=== PATIENT | female | born 1930 | race Caucasian/White ===

== ENCOUNTER 2016-10-04 13:07 | Inpatient (IN) | payer OTHER, BC ==
--- NOTE | 2016-10-04 13:07 | EDPHY ---
H & P Constitutional: Initial Vital Signs Temperature (C) 36.3 C 10/04/16 13:23 Heart Rate 72 10/04/16 13:23 Respiratory Rate 18 10/04/16 13:23 Blood Pressure 130/86 H 10/04/16 13:23 O2 Sat (%) 93 10/04/16 13:23 O2 Delivery Mode Room Air Allergies/Adverse Reactions: Sulfa (Sulfonamide Antibiotics) Allergy (Severe, Verified 10/04/16 13:23) Rash morphine Allergy (Mild, Verified 10/04/16 13:23) NAUSEA Home Medications: Medication Instructions Recorded Alendronate Sodium [Fosamax 70 MG 70 mg PO WE@0700 02/26/15 (*)] Aspirin EC [Aspirin EC 81 mg (*)] 81 mg PO DAILY 02/26/15 Cholecalciferol Vit D3 [Vitamin D3 1,000 units PO Q2D 02/26/15 (*)] Cholecalciferol Vit D3 [Vitamin D3 2,000 units PO Q2D 02/26/15 2000 units] FLUoxetine [Prozac 20 MG (*)] 40 mg PO DAILY 02/26/15 Folic Acid [Folic Acid 1 MG (*)] 1 mg PO DAILY 02/26/15 Herbals/Supplements -Info Only 1 ea PO DAILY 02/26/15 Lisinopril [Zestril 30 mg] 45 mg PO DAILY 02/26/15 Methotrexate Sodium [Rheumatrex] 15 mg PO WE@09 02/26/15 Metoprolol Tartrate [Lopressor 50 50 mg PO DAILY 02/26/15 mg (*)] [place]-3 Fatty Acids [Fish Oil 1000 2,000 mg PO DAILY 02/26/15 mg (*)] Ranitidine HCl [Zantac] 150 mg PO DAILY 02/26/15 amLODIPine BESYLATE [Norvasc 5 mg 5 mg PO DAILY 02/26/15 (*)] Aspirin/Dipyridamole 25/200 1 cap PO BID #60 cap 02/27/15 [Aggrenox] Atorvastatin Calcium [Lipitor 10 10 mg PO DAILY #30 tab 02/27/15 mg (*)] Hydrocodone/Acetaminophen [[place] 1 each PO Q4 PRN #10 tablet 02/27/15 5/325 (*)] Medical Decision Making ED Course/Re-evaluation: CHIEF COMPLAINT: Bilateral leg weakness HISTORY OF PRESENT ILLNESS: This patient is an 86 year old female arriving by EMS who presents to the Emergency Department with an acute exacerbation of chronic bilateral leg weakness presenting around 1200 today when the patient attempted to ambulate out of the shower. On Monday, four days prior to arrival , she experienced an episode of acute lethargy and weakness with reported left- sided listing which has since resolved. She felt normal when she awoke this morning and was able to ambulate appropriately prior to the episode. She was sick 3-4 weeks ago but denies any current fever, chills, aches, or urinary complaints. She denies headache, visual changes, or other neurological deficits. Medical history includes cardiac pacemaker. No anticoagulant use. REVIEW OF SYSTEMS: A 10 point review of systems was performed and is negative with the exception of the elements mentioned in the history of present illness. PHYSICAL EXAM: HR, BP, O2 Sat, RR. Temp noted General Appearance: Alert, well hydrated, appropriate, and non-toxic appearing. Head: Atraumatic without scalp tenderness or obvious injury Eyes: Pupils equal, round, reactive to light and accommodation, EOMI, no trauma , no injection. Ears: Clear bilaterally, no perforation, normal landmarks Nose: Atraumatic, no rhinorrhea, clear. Throat: There is no erythema or exudates, no lesions, normal tonsils, mucus membranes moist. Neck: Supple, 2+ carotid upstroke, nontender, no lymphadenopathy. Respiratory: No retractions, no distress, no wheezes, and no accessory muscle use. Lungs are clear to auscultation bilaterally. Cardiovascular: Regular rate and rhythm, no murmurs, rubs, or gallops. Bilateral carotid, radial, dorsalis pedis, and posterior tibial pulses intact. Good capillary refill all extremities. Gastrointestinal: Abdomen is soft, nontender, non-distended, no masses, no rebound, no guarding, no peritoneal signs. Musculoskeletal: Normal active ROM of all extremities, atraumatic. Neurological: Alert, appropriate, and interactive. The patient has normal DTRs and non-focal cranial nerves, sensory, and cerebellar exam. No pronator drift. Symmetrical motor weakness bilaterally to both legs. Skin: No rashes, good turgor, no nodules on palpation. Past medical history: Cardiac pacemaker. No diabetes. Past surgical history: Non-contributory. Family history: Non-contributory. Social history: Non-smoker. DIAGNOSTICS/PROCEDURES/CRITICAL CARE TIME: IMAGING: Study: CT of the head without IV contrast Indication: Weakness Results: CT scan of the head was obtained. The results of the study are: non- acute. The study was read by the radiologist, Dr. Baldemar Barnes. I viewed the images myself on the PACS system. DIFFERENTIAL DIAGNOSIS: The differential diagnosis for the patient's weakness includes but is not limited to: Guillain-Franklin, spinal stenosis, CVA, UTI, or electrolyte abnormality. MEDICAL DECISION MAKING: This 86 year old female presents by EMS after she was unable to ambulate out of the shower at 1200 today. She had a recent episode of acute weakness on Monday that resolved on its own. She has a largely benign neurological exam with normal cranial nerve function and normal sensation throughout. She does present with bilateral motor weakness to both legs that is more suggestive of spinal stenosis or Guillian-Franklin than it is for stroke or TIA. It is unclear when she first experienced leg weakness but it is possible that today's episode is simply a progression of chronic weakness. Given the patient's cardiac pacemaker, we cannot proceed with MRI imagining at this time. Will proceed with CT of the head, UA, and labs to investigate potential UTI or electrolyte abnormalities. IV established. 1L IV NS administered. Labs are unremarkable; imaging is non-acute. It is unclear at this time the cause of the patient's progressive weakness. Given that she has difficulty ambulating, will plan for admission. 1442: Consultation with Dr. Gutierrez, hospitalist, who accepts admission to med/ surg. 1536: The patient's UA results are positive for UTI. She will be started on a dose of Ceftriaxone prior to admission to the hospital. - Data Points Laboratory Results: Laboratory Results 10/04/16 13:20 10/04/16 13:20 10/04/16 10/04/16 10/04/16 14:42 13:30 13:20 WBC 7.11 10^3/uL (3.80-9.50) RBC 3.88 L 10^6/uL (4.18-5.33) Hgb 13.1 g/dL (12.6-16.3) Hct 38.8 % (38.0-47.0) MCV 100.0 H fL (81.5-99.8) MCH 33.8 pg (27.9-34.1) MCHC 33.8 g/dL (32.4-36.7) RDW 13.7 % (11.5-15.2) Plt Count 210 10^3/uL (150-400) MPV 10.5 fL (8.7-11.7) Neut % (Auto) 80.5 H % (39.3-74.2) Lymph % (Auto) 9.4 L % (15.0-45.0) [place] % (Auto) 8.0 % (4.5-13.0) Eos % (Auto) 0.7 % (0.6-7.6) Baso % (Auto) 0.6 % (0.3-1.7) Nucleat RBC Rel Count 0.0 % (0.0-0.2) Absolute Neuts (auto) 5.72 10^3/uL (1.70-6.50) Absolute Lymphs (auto) 0.67 L 10^3/uL (1.00-3.00) Absolute Monos (auto) 0.57 10^3/uL (0.30-0.80) Absolute Eos (auto) 0.05 10^3/uL (0.03-0.40) Absolute Basos (auto) 0.04 10^3/uL (0.02-0.10) Absolute Nucleated RBC 0.00 10^3/uL (0-0.01) Immature Gran % 0.8 % (0.0-1.1) Immature Gran # 0.06 10^3/uL (0.00-0.10) PT 14.1 SEC (12.0-15.0) INR 1.10 (0.83-1.16) APTT 32.0 SEC (23.0-38.0) Sodium 142 mEq/L (134-144) Potassium 4.4 mEq/L (3.5-5.2) Chloride 108 mEq/L (97-110) Carbon Dioxide 22 mEq/l (22-31) Anion Gap 12 mEq/L (8-16) BUN 18 mg/dL (7-23) Creatinine 0.9 mg/dL (0.6-1.0) Estimated GFR 59 Glucose 150 H mg/dL (70-100) Hemoglobin A1c Pending Estim Average Glucose Pending Calcium 10.2 mg/dL (8.5-10.4) Total Bilirubin 0.7 mg/dL (0.1-1.4) Conjugated Bilirubin 0.3 mg/dL (0.0-0.5) Unconjugated Bilirubin 0.4 mg/dL (0.0-1.1) AST 30 IU/L (14-46) ALT 45 IU/L (9-52) Alkaline Phosphatase 68 IU/L (38-126) Total Protein 7.3 g/dL (6.3-8.2) Albumin 4.1 g/dL (3.5-5.0) Lipase 180.0 IU/L (23-300) Urine Color YELLOW Urine Appearance HAZY Urine pH 5.0 (5.0-7.5) Ur Specific [place] 1.018 (1.002-1.030) Urine Protein 1+ H (NEGATIVE) Urine Ketones NEGATIVE (NEGATIVE) Urine Blood NEGATIVE (NEGATIVE) Urine Nitrate NEGATIVE (NEGATIVE) Urine Bilirubin NEGATIVE (NEGATIVE) Urine Urobilinogen NEGATIVE EU (0.2-1.0) Ur Leukocyte Esterase 2+ H (NEGATIVE) Urine RBC 5-10 H /hpf (0-3) Urine WBC 10-15 H /hpf (0-3) Ur Epithelial Cells 1+ /lpf (NONE-1+) Hyaline Casts 1-5 /lpf (0-1) Urine Mucus 1+ /lpf (NONE-1+) Ur Culture Indicated? INDICATED H (NI) Urine Glucose NEGATIVE (NEGATIVE) Medications Given: Discontinued Medications Sodium Chloride (Ns) 1,000 mls @ 0 mls/hr IV ONCE ONE PRN Reason: Wide Open Stop: 10/04/16 13:16 Last Admin: 10/04/16 13:30 Dose: 1,000 mls Departure - Departure Disposition: [facility] Inpatient Acute Clinical Impression: Leg weakness, bilateral, inability to ambulate UTI (urinary tract infection) Qualifiers: Urinary tract infection type: site unspecified Hematuria presence: with hematuria Qualifier Code: (N39.0) Urinary tract infection, site not specified Condition: Fair Report Scribed for: Thompson Beltran Report Scribed by: Yasemin Martell Date of Report: 10/04/16 Time of Report: 13:17
[2016-10-04] MEDS ORDERED: NS 1,000 ML IV ONE (13:15)
[2016-10-04 13:28] LABS: % IMMATURE GRANULYOCYTES 0.8 % (0.0-1.1); ABSOLUTE IMMATURE GRANULOCYTES 0.06 10^3/uL (0.00-0.10); ADD DIFF? NO; ADD MORPH? NO; ADD SCAN? NO; ATYPICAL LYMPHOCYTE FLAG 10 (0-99); FRAGMENT RBC FLAG 0 (0-99); HEMATOCRIT 38.8 % (38.0-47.0); HEMOGLOBIN 13.1 g/dL (12.6-16.3); LEFT SHIFT FLG 0 (0-99); LIPEMIA HEMOLYSIS FLAG 90 (0-99); MEAN CELL HEMOGLOBIN 33.8 pg (27.9-34.1); MEAN CELL HEMOGLOBIN CONCENTR. 33.8 g/dL (32.4-36.7); MEAN PLATELET VOLUME 10.5 fL (8.7-11.7); PLATELET CLUMPS FLAG 0 (0-99); PLATELET COUNT 210 10^3/uL (150-400); RED BLOOD CELL COUNT 3.88 10^6/uL (4.18-5.33); RED CELL DISTRIBUTION WIDTH 13.7 % (11.5-15.2)
[2016-10-04 13:36] LABS: INR 1.1 (0.83-1.16); PROTIME(PATIENT) 14.1 SEC (12.0-15.0)
[2016-10-04 13:52] LABS: ALANINE AMINOTRANSFERASE 45 IU/L (9-52); ALBUMIN 4.1 g/dL (3.5-5.0); ALKALINE PHOSPHATASE 68 IU/L (38-126); ANION GAP 12 mEq/L (8-16); ASPARTATE AMINOTRANSFERASE 30 IU/L (14-46); BILIRUBIN,TOTAL 0.7 mg/dL (0.1-1.4); BILIRUBIN-CONJUGATED 0.3 mg/dL (0.0-0.5); BILIRUBIN-UNCONJUGATED 0.4 mg/dL (0.0-1.1); CALCIUM 10.2 mg/dL (8.5-10.4); CARBON DIOXIDE 22 mEq/l (22-31); CHLORIDE 108 mEq/L (97-110); CREATININE 0.9 mg/dL (0.6-1.0); GLOMERULAR FILTRATION RATE 59; GLUCOSE 150 mg/dL (70-100); POTASSIUM 4.4 mEq/L (3.5-5.2); SODIUM 142 mEq/L (134-144); TOTAL PROTEIN 7.3 g/dL (6.3-8.2)
--- NOTE | 2016-10-04 14:12 | CT ---
CT Head Without Contrast History: Weakness, difficulty walking, possible TIA in the past comparison February 26, 2015 Technique: Noncontrast images through the head. Soft tissue and bone window evaluation is performed. Dose reduction techniques were utilized. Findings: There is chronic dense atherosclerotic calcification of the distal right vertebral artery a nd of both distal internal carotid arteries.. An old right central cerebellar infarct is represented with focal encephalomalacia. There is stable severe supra and infratentorial cerebral atrophy. Extens deshaun confluent supratentorial white matter hypodensity is consistent with leukomalacia, potentially re lated to systemic chemotherapy for an oncologic process or severe hypertension. There is no evidence for hemorrhage, mass lesion, acute infarction, intracranial edema, hydrocephalu s or abnormal intracranial parenchymal calcification. No subarachnoid or subdural blood is identified . There is no midline shift. The ambient cistern is patent. Bone window evaluation reveals normally a erated paranasal and mastoid sinuses and both middle ears. There is no evidence of pneumocephalus. Impression: Stable since January 2015 might the patient symptoms be related to posterior fossa ischemia related to vertebral artery atherosclerotic disease? Results called and discussed with Thompson Beltran MD, MD at 10/04/2016 14:08 General information for patients regarding this examination can be found at [email or web address]. If you have questions or comments about this report, please contact me at [phone] (hospital) or [phone] (cell).
[2016-10-04 14:51] LABS: COLOR YELLOW; LEUKOCYTE ESTERASE,URINE 2+ (NEGATIVE); NITRITE,URINE NEGATIVE (NEGATIVE)
[2016-10-04 14:59] LABS: MUCUS 1+ /lpf (NONE-1+)
[2016-10-04] MEDS ORDERED: IBUPROFEN 200 MG TAB PO PRN (15:22)
[2016-10-04] MEDS ORDERED: ONDANSETRON 4 MG/2 ML VIAL IVP PRN (15:22)
[2016-10-04] MEDS ORDERED: NS 1,000 ML IV SCH (15:30)
--- NOTE | 2016-10-04 15:31 | PDGENHP ---
History and Physical - Chief Complaint Acute Paresis - History of Present Illness PCP: Dr. Ware Rheum: Dr. Stokes HPI: 86-year-old female presenting with acute paresis located in the bilateral lower extremities characterized as inability to ambulate from her shower with onset of symptoms approximately 4 days ago and duration persistent thereafter. The patient does report that she has experienced subjective weakness in her bilateral lower extremities requiring the use of a walker for approximately 1 year. Over the interval, she has noted increasing pain located in her bilateral knees and up until 4 days ago that pain had been her primary symptom. Approximately 4 days ago she was initiated on [place] and this seemed to alleviate her knee pain. That said, the [place] seemed to exacerbate symptoms of cognitive impairment and the resultant paresis occurred thereafter. Her methotrexate has been reduced from 6 to 4 mg weekly. She has otherwise not made any medication adjustments and she is currently taking low-dose aspirin once daily as well as Aggrenox only once daily. She intermittently experiences associated epistaxis. She reports that she does not have any back pain, does not have any fever, chills, dysuria, polyuria, diarrhea. Her last bowel movement was yesterday, her last urination was today. She does report approximately 2 weeks of a cough which has subsequently subsided. She reports that she has not seen a neurologist since she was admitted to [facility] in 2014. History Information - Allergies/Home Medication List Allergies/Adverse Reactions: Sulfa (Sulfonamide Antibiotics) Allergy (Severe, Verified 10/04/16 13:23) Rash morphine Allergy (Mild, Verified 10/04/16 13:23) NAUSEA Home Medications: Alendronate Sodium [Fosamax 70 MG (*)] 70 mg PO WE@0700 02/26/15 [Last Taken 09/11] Aspirin EC [Aspirin EC 81 mg (*)] 81 mg PO DAILY 02/26/15 [Last Taken 02/26/15] Cholecalciferol Vit D3 [Vitamin D3 (*)] 1,000 units PO Q2D 02/26/15 [Last Taken Unknown] Cholecalciferol Vit D3 [Vitamin D3 2000 units] 2,000 units PO Q2D 02/26/15 [ Last Taken Unknown] FLUoxetine [Prozac 20 MG (*)] 40 mg PO DAILY 02/26/15 [Last Taken 02/26/15] Folic Acid [Folic Acid 1 MG (*)] 1 mg PO DAILY 02/26/15 [Last Taken 02/26/15] Herbals/Supplements -Info Only 1 ea PO DAILY 02/26/15 [Last Taken Unknown] Lisinopril [Zestril 30 mg] 45 mg PO DAILY 02/26/15 [Last Taken 02/26/15] Methotrexate Sodium [Rheumatrex] 15 mg PO WE@02/26/15 [Last Taken 02/25/15] Metoprolol Tartrate [Lopressor 50 mg (*)] 50 mg PO DAILY 02/26/15 [Last Taken ] [place]-3 Fatty Acids [Fish Oil 1000 mg (*)] 2,000 mg PO DAILY 02/26/15 [Last Taken 02/26/15] Ranitidine HCl [Zantac] 150 mg PO DAILY 02/26/15 [Last Taken 02/26/15] amLODIPine BESYLATE [Norvasc 5 mg (*)] 5 mg PO DAILY 02/26/15 [Last Taken ] I have personally reviewed and updated: family history, medical history, social history, surgical history - Past Medical History CVA (Cerebellar with resultant ataxia), hypertension Additional medical history: Depression. Psoriatic arthritis. Osteoarthritis. Macular degeneration. GERD. Sick sinus syndrome. Carotid stenosis, 50-75% bilaterally - Surgical History Reports: appendectomy, cholecystectomy Additional surgical history: Permanent pacemaker - Family History Additional family history: Patient denies any recent sick family contacts - Social History Smoking Status: Never smoked Alcohol Use: None Drug Use: None Additional social history: She lives in a family home with her son and has home health Review of Systems ROS: 10pt was reviewed & negative except for what was stated in HPI & below Constitutional: Reports: weakness EENMT: Reports: other (Epistaxis) Physical Exam Temp Pulse Resp BP Pulse Ox 36.3 C 72 18 130/86 H 93 10/04/16 13:23 10/04/16 13:23 10/04/16 13:23 10/04/16 13:23 10/04/16 13:23 Constitutional: no apparent distress, appears nourished, not in pain, obese Eyes: PERRL, anicteric sclera, EOMI, other (Post cataract surgery pupils) Ears, Nose, Mouth, Throat: moist mucous membranes, hearing normal, ears appear normal, no oral mucosal ulcers Cardiovascular: systolic murmur (2/6 systolic at the sternum), other (Distant heart sounds), No irregularly irregular, No carotid bruit, No tachycardia, No edema Respiratory: no respiratory distress, no rales or rhonchi, clear to auscultation Gastrointestinal: normoactive bowel sounds, soft, non-tender abdomen, no palpable masses Genitourinary: no bladder fullness, no bladder tenderness Skin: warm, normal color, no rashes or abrasions, no fluctuance, no induration, No mottled Musculoskeletal: other (Crepitus in the bilateral knees without any tender joint effusions) Neurologic: AAOx3, sensation intact bilaterally, weakness (Motor strength 4/5 bilateral lower extremities, 5/5 in the bilateral upper extremity), CN II-XII Intact Psychiatric: interacting appropriately, not anxious, not encephalopathic, thought process linear, other (Concentration /) Lab Data & Imaging Review 10/04/16 13:20 10/04/16 13:20 WBC 7.11 10^3/uL (3.80-9.50) 10/04/16 13:20 RBC 3.88 10^6/uL (4.18-5.33) L 10/04/16 13:20 Hgb 13.1 g/dL (12.6-16.3) 10/04/16 13:20 Hct 38.8 % (38.0-47.0) 10/04/16 13:20 MCV 100.0 fL (81.5-99.8) H 10/04/16 13:20 MCH 33.8 pg (27.9-34.1) 10/04/16 13:20 MCHC 33.8 g/dL (32.4-36.7) 10/04/16 13:20 RDW 13.7 % (11.5-15.2) 10/04/16 13:20 Plt Count 210 10^3/uL (150-400) 10/04/16 13:20 MPV 10.5 fL (8.7-11.7) 10/04/16 13:20 Neut % (Auto) 80.5 % (39.3-74.2) H 10/04/16 13:20 Lymph % (Auto) 9.4 % (15.0-45.0) L 10/04/16 13:20 [place] % (Auto) 8.0 % (4.5-13.0) 10/04/16 13:20 Eos % (Auto) 0.7 % (0.6-7.6) 10/04/16 13:20 Baso % (Auto) 0.6 % (0.3-1.7) 10/04/16 13:20 Nucleat RBC Rel Count 0.0 % (0.0-0.2) 10/04/16 13:20 Absolute Neuts (auto) 5.72 10^3/uL (1.70-6.50) 10/04/16 13:20 Absolute Lymphs (auto) 0.67 10^3/uL (1.00-3.00) L 10/04/16 13:20 Absolute Monos (auto) 0.57 10^3/uL (0.30-0.80) 10/04/16 13:20 Absolute Eos (auto) 0.05 10^3/uL (0.03-0.40) 10/04/16 13:20 Absolute Basos (auto) 0.04 10^3/uL (0.02-0.10) 10/04/16 13:20 Absolute Nucleated RBC 0.00 10^3/uL (0-0.01) 10/04/16 13:20 Immature Gran % 0.8 % (0.0-1.1) 10/04/16 13:20 Immature Gran # 0.06 10^3/uL (0.00-0.10) 10/04/16 13:20 PT 14.1 SEC (12.0-15.0) 10/04/16 13:20 INR 1.10 (0.83-1.16) 10/04/16 13:20 APTT 32.0 SEC (23.0-38.0) 10/04/16 13:20 Sodium 142 mEq/L (134-144) 10/04/16 13:20 Potassium 4.4 mEq/L (3.5-5.2) 10/04/16 13:20 Chloride 108 mEq/L (97-110) 10/04/16 13:20 Carbon Dioxide 22 mEq/l (22-31) 10/04/16 13:20 Anion Gap 12 mEq/L (8-16) 10/04/16 13:20 BUN 18 mg/dL (7-23) 10/04/16 13:20 Creatinine 0.9 mg/dL (0.6-1.0) 10/04/16 13:20 Estimated GFR 59 10/04/16 13:20 Glucose 150 mg/dL (70-100) H 10/04/16 13:20 Calcium 10.2 mg/dL (8.5-10.4) 10/04/16 13:20 Total Bilirubin 0.7 mg/dL (0.1-1.4) 10/04/16 13:20 Conjugated Bilirubin 0.3 mg/dL (0.0-0.5) 10/04/16 13:20 Unconjugated Bilirubin 0.4 mg/dL (0.0-1.1) 10/04/16 13:20 AST 30 IU/L (14-46) 10/04/16 13:20 ALT 45 IU/L (9-52) 10/04/16 13:20 Alkaline Phosphatase 68 IU/L (38-126) 10/04/16 13:20 Total Protein 7.3 g/dL (6.3-8.2) 10/04/16 13:20 Albumin 4.1 g/dL (3.5-5.0) 10/04/16 13:20 Lipase 180.0 IU/L (23-300) 10/04/16 13:20 Urine Color YELLOW 10/04/16 14:42 Urine Appearance HAZY 10/04/16 14:42 Urine pH 5.0 (5.0-7.5) 10/04/16 14:42 Ur Specific [place] 1.018 (1.002-1.030) 10/04/16 14:42 Urine Protein 1+ (NEGATIVE) H 10/04/16 14:42 Urine Ketones NEGATIVE (NEGATIVE) 10/04/16 14:42 Urine Blood NEGATIVE (NEGATIVE) 10/04/16 14:42 Urine Nitrate NEGATIVE (NEGATIVE) 10/04/16 14:42 Urine Bilirubin NEGATIVE (NEGATIVE) 10/04/16 14:42 Urine Urobilinogen NEGATIVE EU (0.2-1.0) 10/04/16 14:42 Ur Leukocyte Esterase 2+ (NEGATIVE) H 10/04/16 14:42 Urine RBC 5-10 /hpf (0-3) H 10/04/16 14:42 Urine WBC 10-15 /hpf (0-3) H 10/04/16 14:42 Ur Epithelial Cells 1+ /lpf (NONE-1+) 02 14:42 Hyaline Casts 1-5 /lpf (0-1) 02 14:42 Urine Mucus 1+ /lpf (NONE-1+) 02 14:42 Ur Culture Indicated? INDICATED (NI) H 10/04/16 14:42 Urine Glucose NEGATIVE (NEGATIVE) 10/04/16 14:42 Visualized and Interpreted imaging results: Yes Interpretation: Head CT demonstrating no intracranial hemorrhage, there is stable encephalomalacia and dense atherosclerosis in the right vertebral artery area with previous right cerebellar infarct Assessment & Plan Assessment: 86-year-old female presenting with acute on chronic paresis Plan: 1. Paresis. Acute, on chronic, new problem this provider, further workup indicated. Potential etiologies include spinal stenosis versus worsening posterior circulation defect versus opiate medication effect versus urinary tract infection. -all the above etiologies are possible, I suspect that this may be medication effect this temporarily associated with the introduction of [place] 4 days ago -we will hold opiate pain medications and engage the patient in physical and occupational therapy to determine whether she continues to experience paresis -discussed with Dr. López, the patient will undergo CT myelogram of the back to determine whether she has spinal stenosis -will also get a CT with angio of the head and neck determine whether she has any worsening vasculopathy in the posterior circulation which would account for her worsening gait strength -urinalysis is weakly positive, urine culture has been sent, if the patient starts developing any urinary symptoms then would recommend administering antibiotics, currently her UA is consistent with asymptomatic bacteriuria -will get Neurology consultation -send TSH, CPK, phosphorus level 2. Hypertension. Chronic, continue patient's home medications 3. Carotid stenosis. Chronic, has resulted potentially in CVA in the past, the patient has been placed on low-dose aspirin as well as Aggrenox and statin -outside records reviewed including 02/27/2015 discharge summary by Pastora Hudson, characterizing patient's most recent hospitalization for possible new CVA versus revisited taken in the right cerebellar area, it was recommended that she follow up with Dr. Hoover outpatient setting patient has yet to follow up with a neurologist -continue on aspirin 81, would recommend full-dose Aggrenox well as monitoring for recurrent epistaxis -send lipid panel, send hemoglobin A1c Diet. Cardiac Prophylaxis. High risk patient, Lovenox 40 Code status. Full per patient, her son and daughter are joint MPOA Disposition. Anticipated discharge is 10/05/2016, pending further workup and stabilization of issues outlined above. If patient requires greater than 48 hours inpatient hospitalization for worsening of her clinical condition or inability to safely ambulate and complete ADLs in a lower level of care, then her status will be upgraded to inpatient by tomorrow's hospitalist provider.
[2016-10-04 16:02] LABS: HEMOGLOBIN A1C 5.8 % (4.0-6.0)
[2016-10-04] MEDS ORDERED: IOPAMIDOL (ISOVUE 370) 100 ML BTL IV ONE (17:02)
--- NOTE | 2016-10-04 17:07 | CT ---
CT Angiogram Head and Neck, With Contrast History: Weakness, difficulty walking. Technique: Axial contrast-enhanced images were obtained from the vertex through the thoracic inlet f ollowing the uneventful intravenous administration of 85 mL Isovue-370. Multiplanar reformations wer e performed. Creatinine is 0.9. Dose reduction techniques were utilized. Comparison: Unenhanced CT head same day. CT angiogram head February 27, 2015, carotid ultrasound February 26, 2015, CT angiogram of the neck June 04, 2010. Findings Angiogram Head: The A1 and A2 segments of the anterior cerebral arteries are patent. The anterior c ommunicating artery is not visible. The M1 and M2 segments of the middle cerebral arteries are paten t. The P1 segments of the posterior cerebral arteries are hypoplastic, with the P2 segment supplied via the posterior communicating arteries principally. There is no visible aneurysm or dissection. Angiogram Neck: The visible aorta is normal caliber, with mild atherosclerosis. Bovine arch configu ration is noted. Mild atherosclerosis at the carotid bifurcations, without significant stenosis, is grossly stable. Mild atherosclerosis of the left carotid bifurcation, without significant stenosis, is stable. Mild atherosclerosis, with mild to moderate stenosis at the origin of the left vertebral artery, is stable. The right vertebral artery appears widely patent. The vertebral arteries are sma ll bilaterally. Mild atherosclerosis is present in the distal right vertebral artery. There is incr eased calcified and noncalcified atherosclerosis in the proximal right internal carotid artery, with approximately 30% stenosis. There is no visible dissection or aneurysm. Right upper lobe granuloma is noted. There are multiple venous collaterals over the left neck and ch est, with a left subclavian vein stenosis. Left subclavian pacemaker is noted. Mild circumferential thickening of the esophagus is unchanged since 2009, with fluid in the proximal esophagus, likely re lated to reflux. A 1.5 cm midline nodule superior to the isthmus (series #5, image #161) is not sign ificantly changed since 2009 when remeasured in the same manner. Degenerative change in the cervical spine is not significantly changed, most prominent from C5 through C7, with probable mild to moderat e spinal canal narrowing. Grade 1 anterolisthesis of C3 on C4 is stable. Trace anterolisthesis of C 7 on T1 and T1 on T2 is stable. Impression: 1. No acute vascular findings. 2. Increased mild atherosclerosis in the proximal right internal carotid artery, without significant stenosis. 3. Mild diffuse esophageal thickening, similar to the comparison, which could related to esophagitis . 4. Additional findings, as above. Stenoses are calculated using [place] Symptomatic Carotid Endarterectomy Trial (NASCET) criter ia.
[2016-10-04] MEDS ORDERED: CARISOPRODOL 350 MG TAB PO SCH (21:00)
[2016-10-04] MEDS: LISINOPRIL 40 MG TAB PO SCH (22:04)
[2016-10-05] MEDS: ACETAMINOPHEN 325 MG TAB PO PRN ×2 (05:18→21:50)
[2016-10-05 05:46] LABS: % IMMATURE GRANULYOCYTES 0.6 % (0.0-1.1); ABSOLUTE IMMATURE GRANULOCYTES 0.06 10^3/uL (0.00-0.10); ADD DIFF? NO; ADD MORPH? NO; ADD SCAN? NO; ATYPICAL LYMPHOCYTE FLAG 0 (0-99); FRAGMENT RBC FLAG 0 (0-99); HEMATOCRIT 37.4 % (38.0-47.0); HEMOGLOBIN 12.6 g/dL (12.6-16.3); LEFT SHIFT FLG 0 (0-99); LIPEMIA HEMOLYSIS FLAG 80 (0-99); MEAN CELL HEMOGLOBIN 34.1 pg (27.9-34.1); MEAN CELL HEMOGLOBIN CONCENTR. 33.7 g/dL (32.4-36.7); MEAN CELL VOLUME 101.1 fL (81.5-99.8); MEAN PLATELET VOLUME 10.7 fL (8.7-11.7); PLATELET CLUMPS FLAG 10 (0-99); PLATELET COUNT 175 10^3/uL (150-400); RED CELL DISTRIBUTION WIDTH 13.9 % (11.5-15.2)
[2016-10-05 06:06] LABS: ANION GAP 10 mEq/L (8-16); CALCIUM 9.5 mg/dL (8.5-10.4); CARBON DIOXIDE 19 mEq/l (22-31); CHLORIDE 110 mEq/L (97-110); CHOLESTEROL 152 mg/dL (140-220); CHOLESTEROL/HDL RATIO 3.23 RATIO (1.00-4.44); CREATININE 0.7 mg/dL (0.6-1.0); GLOMERULAR FILTRATION RATE > 60; GLUCOSE 110 mg/dL (70-100); HIGH DENSITY LIPOPROTEIN 47 mg/dL (40-85); LDL/HDL RATIO 1.72 RATIO (1.00-3.22); LOW DENSITY LIPOPROTEIN 81 mg/dL (80-100); NON-HIGH DENSITY LIPOPROTEIN 105 mg/dL (90-129); POTASSIUM 4.5 mEq/L (3.5-5.2); SODIUM 139 mEq/L (134-144); TRIGLYCERIDE 124 mg/dL (35-135); VERY LOW DENSITY LIPOPROTEINS 24 mg/dL (8-25)
[2016-10-05 07:24] LABS: MAGNESIUM 1.9 mg/dL (1.6-2.3)
[2016-10-05 07:33] LABS: CK-MB INTERPRETATION NEGATIVE (NEGATIVE)
[2016-10-05 07:59] LABS: CREATINE KINASE-MB FRACTION 4.08 ng/mL (0-3.19)
[2016-10-05] MEDS ORDERED: CARISOPRODOL 350 MG TAB PO SCH (08:00)
[2016-10-05] MEDS: ONDANSETRON DISINTEGRATING 4 MG TAB PO PRN (08:25)
[2016-10-05] MEDS: LISINOPRIL 5 MG TAB PO SCH (08:46)
[2016-10-05] MEDS: FLUoxetine 20 MG CAP PO SCH (08:46)
[2016-10-05] MEDS: OMEGA-3 FATTY ACIDS 1,000 MG CAP PO SCH (08:46)
[2016-10-05] MEDS: amLODIPine BESYLATE 5 MG TAB PO SCH (08:46)
[2016-10-05] MEDS: METOPROLOL TARTRATE 50 MG TAB PO SCH (08:46)
[2016-10-05] MEDS: ATORVASTATIN CALCIUM 10 MG TAB PO SCH (08:47)
[2016-10-05] MEDS: CHOLECALCIFEROL VIT D3 2,000 UNITS TAB/CAP PO SCH (08:47)
[2016-10-05] MEDS: FOLIC ACID 1 MG TAB PO SCH (08:47)
[2016-10-05] MEDS: LISINOPRIL 40 MG TAB PO SCH (08:47)
[2016-10-05] MEDS ORDERED: METHOTREXATE 2.5 MG TAB PO SCH (09:00)
[2016-10-05] MEDS ORDERED: Herbals/Supplements -Info Only PO SCH (09:00)
[2016-10-05] MEDS ORDERED: ENOXAPARIN 40 MG/0.4 ML SYR SC SCH (09:00)
[2016-10-05] MEDS ORDERED: LISINOPRIL 40 MG TAB PO SCH (09:00)
--- NOTE | 2016-10-05 10:34 | GCON ---
[f rep st] CONSULTATION NEUROLOGIC CONSULTATION. REFERRING PHYSICIAN: Franklyn Gutierrez MD HISTORY OF PRESENT ILLNESS: The patient is an 86-year-old woman who is presenting with weakness in t he lower extremities and loss of ability to ambulate over the last 4 days. She has been using a walk er for at least a year because of weakness. She has had some increased pain in her knees, and the ne w weakness became prominent just 4 days ago. She had been put on [place] at that time and it helped th e knee pain. She then had some cognitive changes related to the medicine. She has been on methotrex ate with a recent adjustment from 6 to 4 mg per week. She has been on aspirin a day as well as Aggre nox once a day. Does report a history of episodic nosebleeds. Not specifically complaining of back pain. She is having some nausea. No fever. REVIEW OF SYSTEMS: A 10-point review of systems is completed and unremarkable except for that noted above. The patient has not been able to describe recent triggers or alleviating factors for this wea kness. It has become rather severe in the last 4 days with loss of ability to safely ambulate. She is not specifically describing an asymmetric weakness. 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 Prior history of depression, psoriatic arthritis, osteoarthritis, macular degeneration, sic k sinus syndrome, carotid stenosis. PAST SURGICAL HISTORY: Prior appendectomy and pacemaker placement. FAMILY HISTORY: Noncontributory. SOCIAL HISTORY: No smoking or alcohol. She lives with her son and has some home care. MEDICATIONS ON ADMISSION: Fosamax, aspirin, Prozac, folic acid, Zestril, Lopressor, methotrexate, No rvasc, ranitidine. ALLERGIES: Sulfa and morphine. PHYSICAL EXAM: VITAL SIGNS: Blood pressure is 153/88, pulse of 60, respirations 16, temperature 37. 4. NEUROLOGIC: She is lethargic but arousable to voice. She looks uncomfortable and often is closi ng her eyes. She is oriented to being in the hospital, but she was not certain of the location, the month or the year. Decreased general fund of knowledge and decreased recent and remote memory with v franky slow response to answer questions. I do not believe she is aphasic, but simply having a hard zion e quickly answering questions. Concentration and attention are definitely reduced as well. Pupils 2 mm and reactive. I cannot view the fundi. No obvious visual field loss. Extraocular movements are intact. Normal facial sensation and movement. Palate elevates symmetrically. Tongue protrudes mid line. Hearing is preserved. No weakness of head turning or shoulder shrug. Motor exam reveals norm al muscle bulk and tone and generalized weakness in the 4/5 range, but seems to be weaker by about a half a grade in the left upper extremity and left lower extremity compared to the right. Reflexes ar e about 1+ and symmetric. Sensation is equal to temperature bilaterally. She is not safe to try to ambulate. She is not ataxic, but simply slow in moving the upper extremities bilaterally. She has a n NIH stroke scale of 6. LABORATORY AND X-RAY DATA: I have reviewed her imaging studies. She does have extensive atrophy and white matter change and mostly stable changes since 2014. There is a cerebellar infarct with focal encephalomalacia on the right. CT angiogram of the head shows fairly prominent atherosclerotic changes in the internal carotid arter y on the right, which is an increase compared to prior evaluation. Right vertebral artery appears pa tent. Bilateral vertebrals are relatively small. Right internal carotid artery may be 30% stenosis. The posterior cerebral arteries are small. Lab studies reveal relatively unremarkable. CBC with mild macrocytosis. Normal INR. Chemistries ar e unremarkable. LDL cholesterol of 81. Urinalysis with 10-15 white cells. IMPRESSION: The patient has a history of prior right cerebellar stroke and some residual balance iss ues from that. She has had this more recent decline in ambulation of uncertain cause. Although the head CT does not show acute stroke, she has extensive microvascular disease. It is certainly possibl e that she has suffered another small stroke but cannot be visualized on CT at this time, and an MRI is not an option because of her pacemaker. Alternative explanations could be spinal stenosis, althou gh I do not [employer] hyperreflexia to suggest that that is particularly likely. There is relative wea kness on the left side more than the right, which would not be consistent with an old right cerebella r infarct. I wonder if she might have had a lacunar event in the right internal capsule perhaps. We simply cannot know for sure. I do not detect signs of peripheral neuropathy. She is a little slow cognitively, but I do not think this is an acute encephalopathy as much as she seems fatigued and she is a bit un comfortable with nausea. She is on some ceftriaxone now. I agree with antiplatelet the rapy at this point. She will have physical, occupational, and speech therapy consultations. We can work on determination of disposition once further workup is undertaken. She has a lumbar myelogram p lanned to look for any spinal stenosis, and that seems like a logical study to help better understand what is happening. I will continue to follow along with you. /[id number]/MODL
--- NOTE | 2016-10-05 16:19 | HOSPPROG ---
Hospitalist Progress Note Assessment/Plan: * acute encephalopathy * unclear cause. She did have 2 doses of Soma I am not sure she is on that regularly or takes it as frequently. She got a dose this this morning possibly contributing to an altered mental status. * She however also had a fever, blood cultures have been drawn. She is on ceftriaxone for possible urinary tract infection * CT scan of her head was negative yesterday. I am not sure if this is worth repeating at this point * acute on chronic lower extremity weakness and pain * will be going for CT myelogram tomorrow and she received Lovenox today * I wonder if Guillian [place] is a possibility as well * epidural abscess is also possibility although she does not have significant back pain * we cannot get MRI due to pacemaker * fever * will continue ceftriaxone for possible urinary tract infection * check blood cultures * pacemaker * chronic lower extremity weakness Subjective: more somnolent today which is different than last night for family. She is denying any pain Objective: Vital Signs Temp Pulse Resp BP Pulse Ox 37.4 C 60 16 158/76 H 95 10/05/16 15:55 10/05/16 15:55 10/05/16 15:55 10/05/16 15:55 10/05/16 15:55 Laboratory Results 10/05/16 05:35 10/05/16 05:35 10/04/16 10/05/16 10/06/16 05:59 05:59 05:59 Intake Total 1500 200 Output Total 550 Balance 950 200 PT 14.1 SEC (12.0-15.0) 10/04/16 13:20 INR 1.10 (0.83-1.16) 10/04/16 13:20 - Physical Exam Constitutional: no apparent distress, appears nourished, not in pain Eyes: anicteric sclera, EOMI Ears, Nose, Mouth, Throat: moist mucous membranes, hearing normal, ears appear normal Cardiovascular: regular rate and rhythym, no murmur, rub, or gallop Respiratory: no respiratory distress, no rales or rhonchi Gastrointestinal: normoactive bowel sounds, soft, non-tender abdomen, no palpable masses Skin: warm Neurologic: other ( response to questions but is slow. Global weakness but nothing focal) Psychiatric: encephalopathic ICD10 Worksheet Patient Problems: Problems Problem Status Diagnosed Leg weakness, bilateral Acute UTI (urinary tract infection) Acute Ischemic stroke Acute
--- NOTE | 2016-10-05 16:20 | DX ---
Portable Chest, 1327, 2 views History: Fever Comparison: May 24, 2011 Findings: Inspiratory phase is poor. The heart remains enlarged. The pulmonary vascularity is not obv iously plethoric. There is no obvious right lung or left upper lobe pneumonia. It is impossible to ch aracterize the left lower lobe. Prominence of soft tissue density in the right paratracheal area is n ew and has a convex edge and may be related to the poor inspiration and represent distention of the s uperior vena cava versus brachiocephalic vascular tortuosity versus mass. A left chest wall pacer dev ice and associated bipolar pacer leads remain in place. Skin aman have been removed from the left pacer pocket. EKG leads overlie the chest. The patient is obese. Impression: Suboptimal inspiratory phase. Please see above. A routine PA and lateral chest would be h elpful. If the patient is unable, a noncontrast chest CT might be useful to exclude occult pneumonia and to evaluate a possible right superior mediastinal mass.
[2016-10-05 19:40] LABS: INR 1.27 (0.83-1.16); PROTIME(PATIENT) 15.9 SEC (12.0-15.0)
[2016-10-05 19:41] LABS: APTT 37.5 SEC (23.0-38.0)
[2016-10-06] MEDS: ASPIRIN/DIPYRIDAMOLE CAPSULE PO SCH ×3 (02:39→22:45)
[2016-10-06 05:43] LABS: % IMMATURE GRANULYOCYTES 0.7 % (0.0-1.1); ABSOLUTE IMMATURE GRANULOCYTES 0.08 10^3/uL (0.00-0.10); ADD DIFF? NO; ADD MORPH? NO; ADD SCAN? NO; ATYPICAL LYMPHOCYTE FLAG 0 (0-99); FRAGMENT RBC FLAG 0 (0-99); HEMATOCRIT 33.9 % (38.0-47.0); HEMOGLOBIN 11.6 g/dL (12.6-16.3); LEFT SHIFT FLG 10 (0-99); LIPEMIA HEMOLYSIS FLAG 90 (0-99); MEAN CELL HEMOGLOBIN 33.7 pg (27.9-34.1); MEAN CELL HEMOGLOBIN CONCENTR. 34.2 g/dL (32.4-36.7); MEAN CELL VOLUME 98.5 fL (81.5-99.8); MEAN PLATELET VOLUME 10.6 fL (8.7-11.7); PLATELET CLUMPS FLAG 0 (0-99); PLATELET COUNT 140 10^3/uL (150-400); RED BLOOD CELL COUNT 3.44 10^6/uL (4.18-5.33)
[2016-10-06 06:00] LABS: ANION GAP 9 mEq/L (8-16); CALCIUM 9.1 mg/dL (8.5-10.4); CARBON DIOXIDE 20 mEq/l (22-31); CHLORIDE 106 mEq/L (97-110); CREATININE 0.7 mg/dL (0.6-1.0); GLOMERULAR FILTRATION RATE > 60; GLUCOSE 137 mg/dL (70-100); SODIUM 135 mEq/L (134-144)
[2016-10-06] MEDS ORDERED: LIDOCAINE 1% 30 ML SDV ONE (07:54)
[2016-10-06] MEDS ORDERED: IOPAMIDOL (ISOVUE-M 200) 20 ML VIAL IV ONE (07:54)
[2016-10-06] MEDS ORDERED: NA BICARBONATE 50 MEQ/50 ML VIAL ONE (07:54)
[2016-10-06] MEDS: amLODIPine BESYLATE 5 MG TAB PO SCH (11:45)
[2016-10-06] MEDS: METOPROLOL TARTRATE 50 MG TAB PO SCH (11:45)
[2016-10-06] MEDS: LISINOPRIL 5 MG TAB PO SCH (11:45)
[2016-10-06] MEDS: LISINOPRIL 40 MG TAB PO SCH (11:45)
[2016-10-06] MEDS: FLUoxetine 20 MG CAP PO SCH (11:46)
[2016-10-06] MEDS: ATORVASTATIN CALCIUM 10 MG TAB PO SCH (11:46)
[2016-10-06] MEDS: CHOLECALCIFEROL VIT D3 2,000 UNITS TAB/CAP PO SCH (11:47)
[2016-10-06] MEDS: FOLIC ACID 1 MG TAB PO SCH (11:47)
[2016-10-06] MEDS: OMEGA-3 FATTY ACIDS 1,000 MG CAP PO SCH (11:59)
[2016-10-06] MEDS: ASPIRIN EC 81 MG TAB PO SCH (12:00)
--- NOTE | 2016-10-06 12:55 | CT ---
CT Lumbar Spine with Intrathecal Contrast (Myelogram) Indication: Reason for examination. Reason for examination Technique: 1.25 mm thick axial slices were obtained from T11 through S1. The data was reconstructed i n the axial, sagittal, and coronal plane with bone algorithm and in the axial plane in soft tissue al gorithm. Dose reduction techniques were utilized. Lumbar myelogram was performed and reported ga [place]an[place]. Comparison: Lumbar spine radiographs dated August 23, 2012. Findings: Intrathecal contrast is nicely distributed throughout the subarachnoid space within the dur al sac. No epidural contrast. T11-S1 is anatomically aligned except for 3 mm of anterolisthesis of L3 on L4. No compression fractur e, pars defect, or bone lesion. Imaged portion of the sacrum has minimal reactive sclerosis in the bright perior endplate at the L5-S1 disk space. No insufficiency fracture. Imaged portion of the low posteri or ribs are intact with no fractures. No retroperitoneal hematoma or paraspinal mass. No hydronephrosis. The infrarenal abdominal aorta is minimally ectatic measuring 2.5 cm AP. No aneurysm. T11-T12: Widely patent central canal and neural foramina. T12-L1: Widely patent central canal and neural foramina. Minimal diskogenic Modic changes anteriorly in the endplates of T12 and L1. L1-L2: Diffuse broad-based disk bulge results in mild central canal narrowing and mild bilateral neur al foraminal narrowing. The thecal sac measures 9 to 10 mm AP. L2-L3: A diffuse broad-based disk, slightly worse off to the right results in mild to moderate centra l canal narrowing, moderate to severe right ventrolateral recess narrowing, mild left ventrolateral r ecess narrowing, and mild bilateral neural foraminal stenosis. The central canal measures 8 to 9 mm A P. L3-L4: Diffuse broad-based disk bulge, osteophyte disk complex, grade 1 anterolisthesis of L3 on L4, facet hypertrophy and ligamentum flavum thickening results in moderate central canal narrowing, moder ate to severe bilateral ventrolateral recess stenosis, and moderate bilateral neural foraminal narrow ing, worse left than right. The central canal measures 8 to 9 mm AP. L4-L5: Mild central canal narrowing due to broad-based osteophyte disk complex, facet hypertrophy and ligamentum flavum thickening. Central canal measures 12 mm AP. Uncovertebral and facet spurs result in moderate left and mild right neural foraminal narrowing. L5-S1: Mild central canal narrowing due to broad-based osteophyte disk complex and uncovertebral spur s. Moderate right and severe left neural foraminal stenosis due to uncovertebral and facet spurs. Impression: 1. No cord compression or critical central canal stenosis to explain bilateral lower extremity weakne ss. 2. Diagnostic CT lumbar myelogram with good distribution of contrast in the subarachnoid space. 3. Moderate central canal stenosis at L2-L3 and L3-L4 due to diffuse broad-based disk bulges. No foca l disk herniation. 4. Moderate to severe bilateral neural foraminal stenosis at L5-S1 worse off to the left. 5. No compression fracture or bone lesion. Comment: The results were discussed with Dr. Negra Nj at 12:15 p.m. on October 06, 2016.
[2016-10-06] MEDS: ONDANSETRON DISINTEGRATING 4 MG TAB PO PRN (13:45)
[2016-10-06] MEDS: ACETAMINOPHEN 325 MG TAB PO PRN (15:37)
--- NOTE | 2016-10-06 15:40 | HOSPPROG ---
Hospitalist Progress Note Assessment/Plan: * acute encephalopathy * probably multifactorial including 2 doses of Soma which I suspect she has not used to along with urinary tract infection * acute on chronic lower extremity weakness and pain * CT myelogram is negative for central canal stenosis. She has been having problems with lower extremity weakness form for several years now. * New CVA is also possible * we cannot get MRI due to pacemaker * fever * is afebrile today * continue ceftriaxone * await blood cultures * urinary tract infection * pacemaker * chronic lower extremity weakness Subjective: more awake today. Is having some lower extremity pain. No back pain Objective: Vital Signs Temp Pulse Resp BP Pulse Ox 37.0 C 60 18 115/67 94 10/06/16 12:00 10/06/16 12:00 10/06/16 12:00 10/06/16 12:00 10/06/16 12:00 Laboratory Results 10/06/16 05:18 10/06/16 05:18 10/05/16 10/06/16 10/07/16 05:59 05:59 05:59 Intake Total 500 350 Balance 500 350 PT 15.9 SEC (12.0-15.0) H 10/05/16 19:20 INR 1.27 (0.83-1.16) H 10/05/16 19:20 - Physical Exam Constitutional: no apparent distress, appears nourished, not in pain Eyes: anicteric sclera, EOMI Ears, Nose, Mouth, Throat: moist mucous membranes, hearing normal Cardiovascular: regular rate and rhythym, no murmur, rub, or gallop Respiratory: no respiratory distress, no rales or rhonchi Gastrointestinal: normoactive bowel sounds, soft, non-tender abdomen, no palpable masses Skin: warm Neurologic: AAOx3, weakness ( bilateral lower extremity) Psychiatric: interacting appropriately, not anxious, not encephalopathic, thought process linear ICD10 Worksheet Patient Problems: Problems Problem Status Diagnosed Leg weakness, bilateral Acute UTI (urinary tract infection) Acute Ischemic stroke Acute
[2016-10-06] MEDS: D5W 1/2 NS W/ 20 KCl/L 1,000 ML IV SCH (17:03)
--- NOTE | 2016-10-06 17:23 | DX ---
Lumbar Myelogram Indication: Back pain. Crosscutting Measure #226: Current tobacco user: No, Informed consent was given, which included the risk of spinal headache, infection, aseptic meningitis and bleeding. Technique: The patient was placed prone on the fluoroscopic table in a slight MIKE position. The right L2-L3 interlaminar space was identified with fluoroscopy and the overlying skin was marked. The skin was cleaned with Betadine, sterilely draped, and the skin and deep soft tissues were numbed with 1% lidocaine. Utilizing intermittent fluoroscopy, a 22-gauge Chiba needle was advanced into the thecal s ac. Once clear CSF appeared in the needle hub, 13 mL of nonionic Isovue-M 200 contrast were slowly in jected into the thecal sac and was seen to flow easily away from the needle on fluoroscopy. The needl e was withdrawn. Fluoroscopic images were obtained. The patient was then transferred to CT for furthe r imaging. Findings: Good distribution of contrast in the subarachnoid space. The thecal sac is mildly compresse d and deformed at the L3-L4, and L4-L5 levels. Impression: Successful injection of intrathecal contrast. Plan: CT myelogram to follow.
[2016-10-07] MEDS: ACETAMINOPHEN 325 MG TAB PO PRN (03:44)
[2016-10-07 05:02] LABS: % IMMATURE GRANULYOCYTES 0.8 % (0.0-1.1); ABSOLUTE IMMATURE GRANULOCYTES 0.08 10^3/uL (0.00-0.10); ADD DIFF? NO; ADD MORPH? NO; ADD SCAN? NO; ATYPICAL LYMPHOCYTE FLAG 0 (0-99); FRAGMENT RBC FLAG 0 (0-99); HEMOGLOBIN 11.5 g/dL (12.6-16.3); LEFT SHIFT FLG 20 (0-99); LIPEMIA HEMOLYSIS FLAG 90 (0-99); MEAN CELL HEMOGLOBIN 32.8 pg (27.9-34.1); MEAN CELL HEMOGLOBIN CONCENTR. 33.8 g/dL (32.4-36.7); MEAN CELL VOLUME 96.9 fL (81.5-99.8); MEAN PLATELET VOLUME 10.8 fL (8.7-11.7); PLATELET CLUMPS FLAG 10 (0-99); PLATELET COUNT 124 10^3/uL (150-400); RED BLOOD CELL COUNT 3.51 10^6/uL (4.18-5.33); RED CELL DISTRIBUTION WIDTH 14.1 % (11.5-15.2)
[2016-10-07 05:19] LABS: ALANINE AMINOTRANSFERASE 128 IU/L (9-52); ALBUMIN 2.8 g/dL (3.5-5.0); ALKALINE PHOSPHATASE 62 IU/L (38-126); ANION GAP 7 mEq/L (8-16); ASPARTATE AMINOTRANSFERASE 90 IU/L (14-46); BILIRUBIN,TOTAL 0.5 mg/dL (0.1-1.4); BILIRUBIN-CONJUGATED 0.4 mg/dL (0.0-0.5); BILIRUBIN-UNCONJUGATED 0.1 mg/dL (0.0-1.1); CALCIUM 8.8 mg/dL (8.5-10.4); CARBON DIOXIDE 21 mEq/l (22-31); CHLORIDE 106 mEq/L (97-110); GLOMERULAR FILTRATION RATE 52; GLUCOSE 133 mg/dL (70-100); SODIUM 134 mEq/L (134-144); TOTAL PROTEIN 5.5 g/dL (6.3-8.2)
[2016-10-07] MEDS ORDERED: ERTAPENEM 1 GM in NS 100 ML IV SCH (09:30)
[2016-10-07] MEDS: OMEGA-3 FATTY ACIDS 1,000 MG CAP PO SCH (10:14)
[2016-10-07] MEDS: FLUoxetine 20 MG CAP PO SCH (10:14)
[2016-10-07] MEDS: CHOLECALCIFEROL VIT D3 2,000 UNITS TAB/CAP PO SCH (10:14)
[2016-10-07] MEDS: LISINOPRIL 40 MG TAB PO SCH (10:14)
[2016-10-07] MEDS: amLODIPine BESYLATE 5 MG TAB PO SCH (10:15)
[2016-10-07] MEDS: FOLIC ACID 1 MG TAB PO SCH (10:15)
[2016-10-07] MEDS: LISINOPRIL 5 MG TAB PO SCH (10:15)
[2016-10-07] MEDS: ATORVASTATIN CALCIUM 10 MG TAB PO SCH (10:15)
[2016-10-07] MEDS: ASPIRIN/DIPYRIDAMOLE CAPSULE PO SCH ×2 (10:17→21:27)
[2016-10-07] MEDS: ASPIRIN EC 81 MG TAB PO SCH (10:18)
--- NOTE | 2016-10-07 10:47 | US ---
Ultrasound of the Abdomen Complete History: Elevated liver function test. Comparison: None. Findings: Limited due to patient body habitus. Biliary System: Gallbladder surgically absent.. Common bile duct is 12 mm in diameter which is promin ent but may be postsurgical. Please correlate with bilirubin. Liver: Diffusely increased and heterogenous in echogenicity and measures 15 cm in length. No definite focal lesions. Renal: Right kidney measures 11 x 5 x 5 cm and left kidney 12 x 5 x 6 cm without hydronephrosis in ei ther kidney. In the midpole of the right kidney there is a 7 x 6 x 6 mm possible cyst. In the lower p ole left kidney there is a 12 x 11 x 11 mm possible cyst. Spleen: Homogeneous and 10 cm in length without splenomegaly. Pancreas: Obscured by bowel gas. Aorta: Visualized upper abdominal aorta demonstrates no aneurysm. IVC: Grossly patent. Impression: 1. Prior cholecystectomy with common bile duct 12 mm. Please correlate with bilirubin or consider [facility] P cholangiography if clinically indicated. 2. Hepatic steatosis with heterogenous parenchymal pattern which limits evaluation for focal hepatic lesions. No definite focal hepatic masses or ascites. Consider additional CT abdomen with intravenous contrast if there is continued clinical concern. 3. No splenomegaly or ascites. 4. No hydronephrosis.
[2016-10-07] MEDS: D5W 1/2 NS W/ 20 KCl/L 1,000 ML IV SCH (10:48)
--- NOTE | 2016-10-07 11:33 | ECHO ---
[id number] + + [address] : : [place] [id number] : : [phone] + Adult Echocardiographic Report + --------+ :Name: DEMARCUS CONKLIN TStudy Date: 10/07/2016 08:43 AM : : Hospital Admission Number: [id number] Locat ion: 361: :: 1930 Gender: Female Height: 63 in : :Age: 86 yrs Race: WH Weight: 199 l b : :Reason For Study: Eval LV Fx : : BSA: 1.9 mete rs2 : :History: 361 : + --------+ MMode/2D Measurements & Calculations IVSd: 1.3 cm LVIDd: 3.9 cm FS: 47.5 % Ao root diam: 3.6 cm LVPWd: 1.3 cm LVIDs: 2.1 cm EDV(Teich): 67.3 ml ACS: 1.0 cm ESV(Teich): 13.8 ml EF(Teich): 79.5 % LVOT diam: 2.0 cm LVOT area: 3.1 cm2 Normal Measurement Values: + + :LVIDd (3.5-5.7cm) IVSd (0.6-1.1cm) LVPWd (0.6-1.1cm) Aortic Root (2.0-3.7cm)Left Atrium (1.5-4.0cm): :LV Vol(d) (76-115ml) LV Vol(s) (29-48ml) Ejec Fraction (50-65%)PV Sonny (0.6- 1.2m/s) TV Sonny (0.4-1.0m/s) : :MV E Sonny (0.8-1.0m/s)MV A Sonny (0.3-1.0m/s)LVOT Sonny (0.7-1.2m/s) Asc Ao Sonny ( 0.9-1.8m/s) : + + Doppler Measurements & Calculations MV E max sonny: Ao V2 max: LV V1 max: SV(LVOT): 70.1 cm/sec 283.7 cm/sec 83.4 cm/sec 72.2 ml MV A max sonny: Ao max P.2 mmHgLV V1 max P.9 cm/sec Ao mean P.8 mmHg MV E/A: 0.80 18.8 mmHg LV V1 mean PG: Ao V2 mean: 1.8 mmHg 205.6 cm/sec LV V1 mean: Ao V2 VTI: 72.4 cm 62.7 cm/sec LV V1 VTI: 23.0 cm KIRSTEN(I,D): 1.00 cm2 KIRSTEN(V,D): 0.92 cm2 PA V2 max: 115.4 cm/sec PA max P.3 mmHg Left Ventricle The left ventricle is normal in size. There is mild concentric left ventricular hypertrophy. The left ventricular ejection fraction is normal. There is Doppler evidence for diastolic dysfunction. The left ventricle is hyperdynamic. Ejection Fraction = 79%. The left ventricular wall motion is normal. Right Ventricle There is a pacemaker lead in the right ventricle. The right ventricle is normal size. Atria The left atrial size is normal. Right atrial size is normal. Mitral Valve The mitral valve is normal in structure and function. There is no mitral valve stenosis. There is no mitral regurgitation noted. Tricuspid Valve The tricuspid valve is not well visualized. There is trace tricuspid regurgitation. Right ventricular systolic pressure is normal. Aortic Valve There is moderate aortic valve calcification. The Ao V2 max is 2.8 m/sec with a Ao mean PG of 19 mmHg. Trubulent flow noted thru the aortic valve. There is a calculated aortic valve area of 1.0 cm2. Mild valvular aortic stenosis. There is no aortic insufficiency. Pulmonic Valve The pulmonic valve is normal in structure and function. Great Vessels The aortic root is normal size. Pericardium/Pleural There is no pericardial effusion. Conclusion A complete two-dimensional transthoracic echocardiogram was performed (2D, M-mode, Doppler and color flow Doppler). There is mild concentric left ventricular hypertrophy. The left ventricular ejection fraction is normal. There is Doppler evidence for diastolic dysfunction. The left ventricle is hyperdynamic. Ejection Fraction = 79%. The left ventricular wall motion is normal. There is a pacemaker lead in the right ventricle. The left atrial size is normal. The mitral valve is normal in structure and function. There is trace tricuspid regurgitation. Right ventricular systolic pressure is normal. There is moderate aortic valve calcification. The Ao V2 max is 2.8 m/sec with a Ao mean PG of 19 mmHg. Trubulent flow noted thru the aortic valve. There is a calculated aortic valve area of 1.0 cm2. Mild valvular aortic stenosis. There is no pericardial effusion. Final Reading Physician: Mignon Maciel signed on 10/07/2016 11:31 AM Ordering Physician: Negra Nj Performed By: Elan Wall, HILLARYCS
--- NOTE | 2016-10-07 16:14 | HOSPPROG ---
Hospitalist Progress Note Assessment/Plan: * acute encephalopathy * probably multifactorial including 2 doses of Soma which I suspect she has not used to along with urinary tract infection * is a lot better * acute on chronic lower extremity weakness and pain * CT myelogram is negative for central canal stenosis. She has been having problems with lower extremity weakness form for several years now. * New CVA is also possible but most likely was urinary tract infection making her globally weak * we cannot get MRI due to pacemaker * fever * is afebrile today * continue ceftriaxone * blood cultures negative * mild elevation of liver function tests * is post- cholecystectomy * ultrasound reflects that I did not see any acute issues currently. Will continue to watch * urinary tract infection * ceftriaxone * pacemaker * chronic lower extremity weakness * will need rehab * DVT prophylaxis * start Lovenox today Subjective: more awake and feeling overall better. Denies any headache. Neck pain is resolved. Not much in the way of abdominal pain. Does seem to be eating Objective: Vital Signs Temp Pulse Resp BP Pulse Ox 37.3 C 60 16 104/66 94 10/07/16 12:29 10/07/16 12:29 10/07/16 12:29 10/07/16 12:29 10/07/16 12:29 Laboratory Results 10/07/16 04:30 10/07/16 04:30 10/06/16 10/07/16 10/08/16 05:59 05:59 05:59 Intake Total 500 1250 Balance 500 1250 PT 15.9 SEC (12.0-15.0) H 10/05/16 19:20 INR 1.27 (0.83-1.16) H 10/05/16 19:20 - Physical Exam Constitutional: no apparent distress, appears nourished, not in pain Eyes: anicteric sclera, EOMI Ears, Nose, Mouth, Throat: moist mucous membranes, hearing normal, ears appear normal Cardiovascular: regular rate and rhythym, no murmur, rub, or gallop Respiratory: no respiratory distress, no rales or rhonchi Gastrointestinal: normoactive bowel sounds, soft, non-tender abdomen, no palpable masses, tenderness ( mild right upper quadrant) Skin: warm Neurologic: AAOx3 Psychiatric: interacting appropriately, not anxious, not encephalopathic, thought process linear ICD10 Worksheet Patient Problems: Problems Problem Status Diagnosed Leg weakness, bilateral Acute UTI (urinary tract infection) Acute Ischemic stroke Acute
[2016-10-07] MEDS: ENOXAPARIN 40 MG/0.4 ML SYR SC SCH (17:07)
[2016-10-08] MEDS: ACETAMINOPHEN 325 MG TAB PO PRN ×4 (00:18→19:11)
[2016-10-08] MEDS: ONDANSETRON DISINTEGRATING 4 MG TAB PO PRN (00:19)
[2016-10-08 05:17] LABS: % IMMATURE GRANULYOCYTES 0.4 % (0.0-1.1); ABSOLUTE IMMATURE GRANULOCYTES 0.03 10^3/uL (0.00-0.10); ADD DIFF? NO; ADD MORPH? NO; ADD SCAN? YES; ATYPICAL LYMPHOCYTE FLAG 0 (0-99); FRAGMENT RBC FLAG 0 (0-99); HEMATOCRIT 34.4 % (38.0-47.0); HEMOGLOBIN 11.9 g/dL (12.6-16.3); LEFT SHIFT FLG 30 (0-99); LIPEMIA HEMOLYSIS FLAG 90 (0-99); MEAN CELL HEMOGLOBIN 34.3 pg (27.9-34.1); MEAN CELL HEMOGLOBIN CONCENTR. 34.6 g/dL (32.4-36.7); MEAN CELL VOLUME 99.1 fL (81.5-99.8); MEAN PLATELET VOLUME 11.3 fL (8.7-11.7); PLATELET CLUMPS FLAG 20 (0-99); PLATELET COUNT 128 10^3/uL (150-400); RED BLOOD CELL COUNT 3.47 10^6/uL (4.18-5.33); RED CELL DISTRIBUTION WIDTH 14.1 % (11.5-15.2)
[2016-10-08 05:25] LABS: ALANINE AMINOTRANSFERASE 110 IU/L (9-52); ALBUMIN 2.9 g/dL (3.5-5.0); ALKALINE PHOSPHATASE 73 IU/L (38-126); ANION GAP 5 mEq/L (8-16); ASPARTATE AMINOTRANSFERASE 69 IU/L (14-46); BILIRUBIN,TOTAL 0.4 mg/dL (0.1-1.4); CARBON DIOXIDE 22 mEq/l (22-31); CHLORIDE 110 mEq/L (97-110); CREATININE 0.7 mg/dL (0.6-1.0); GLOMERULAR FILTRATION RATE > 60; GLUCOSE 101 mg/dL (70-100); POTASSIUM 3.9 mEq/L (3.5-5.2); SODIUM 137 mEq/L (134-144); TOTAL PROTEIN 5.6 g/dL (6.3-8.2)
[2016-10-08 06:01] LABS: SCAN NEGATIVE
[2016-10-08] MEDS: ENOXAPARIN 40 MG/0.4 ML SYR SC SCH (08:35)
[2016-10-08] MEDS: LISINOPRIL 5 MG TAB PO SCH (08:35)
[2016-10-08] MEDS: ATORVASTATIN CALCIUM 10 MG TAB PO SCH (08:35)
[2016-10-08] MEDS: FOLIC ACID 1 MG TAB PO SCH (08:35)
[2016-10-08] MEDS: FLUoxetine 20 MG CAP PO SCH (08:36)
[2016-10-08] MEDS: CHOLECALCIFEROL VIT D3 2,000 UNITS TAB/CAP PO SCH (08:36)
[2016-10-08] MEDS: ASPIRIN/DIPYRIDAMOLE CAPSULE PO SCH ×2 (08:36→19:12)
[2016-10-08] MEDS: OMEGA-3 FATTY ACIDS 1,000 MG CAP PO SCH (08:36)
[2016-10-08] MEDS: amLODIPine BESYLATE 5 MG TAB PO SCH (08:36)
[2016-10-08] MEDS: ASPIRIN EC 81 MG TAB PO SCH (08:36)
[2016-10-08] MEDS: LISINOPRIL 40 MG TAB PO SCH (08:37)
[2016-10-08] MEDS: CEFUROXIME AXETIL 250 MG TAB PO SCH ×2 (12:35→19:12)
--- NOTE | 2016-10-08 14:54 | HOSPPROG ---
Hospitalist Progress Note Assessment/Plan: * acute encephalopathy * probably multifactorial including 2 doses of Soma which I suspect she has not used to along with urinary tract infection * is a lot better * acute on chronic lower extremity weakness and pain * CT myelogram is negative for central canal stenosis. She has been having problems with lower extremity weakness form for several years now. * New CVA is also possible but most likely was urinary tract infection making her globally weak * we cannot get MRI due to pacemaker * fever * no fever for 2 days * blood cultures negative * mild elevation of liver function tests * is post- cholecystectomy * ultrasound reflects that I did not see any acute issues currently. Will continue to watch * urinary tract infection * changes Ceftin * pacemaker * chronic lower extremity weakness * will need rehab * possibly tomorrow * DVT prophylaxis * Lovenox Subjective: feeling better today. Still weak. Appetite not a good Objective: Vital Signs Temp Pulse Resp BP Pulse Ox 37.2 C 60 16 131/71 H 93 10/08/16 12:02 10/08/16 12:02 10/08/16 12:02 10/08/16 12:02 10/08/16 12:02 Laboratory Results 10/08/16 04:35 10/08/16 04:35 10/07/16 10/08/16 10/09/16 05:59 05:59 05:59 Intake Total 1250 200 Balance 1250 200 PT 15.9 SEC (12.0-15.0) H 10/05/16 19:20 INR 1.27 (0.83-1.16) H 10/05/16 19:20 - Physical Exam Constitutional: no apparent distress, appears nourished, not in pain Eyes: anicteric sclera, EOMI Ears, Nose, Mouth, Throat: moist mucous membranes, hearing normal, ears appear normal Cardiovascular: regular rate and rhythym, no murmur, rub, or gallop Respiratory: no respiratory distress, no rales or rhonchi, clear to auscultation Gastrointestinal: normoactive bowel sounds, soft, non-tender abdomen, no palpable masses Neurologic: AAOx3 Psychiatric: interacting appropriately, not anxious, not encephalopathic, thought process linear ICD10 Worksheet Patient Problems: Problems Problem Status Diagnosed Leg weakness, bilateral Acute UTI (urinary tract infection) Acute Ischemic stroke Acute
[2016-10-08] MEDS ORDERED: traMADol 50 MG TAB ONE (22:57)
[2016-10-08] MEDS: traMADol 50 MG TAB PO PRN (23:04)
[2016-10-09] MEDS: ACETAMINOPHEN 325 MG TAB PO PRN ×3 (01:30→12:54)
[2016-10-09] MEDS: ONDANSETRON DISINTEGRATING 4 MG TAB PO PRN ×2 (01:31→11:08)
[2016-10-09] MEDS: traMADol 50 MG TAB PO PRN (04:25)
[2016-10-09] MEDS: ATORVASTATIN CALCIUM 10 MG TAB PO SCH (08:12)
[2016-10-09] MEDS: ENOXAPARIN 40 MG/0.4 ML SYR SC SCH (08:12)
[2016-10-09] MEDS: FLUoxetine 20 MG CAP PO SCH (08:12)
[2016-10-09] MEDS: ASPIRIN EC 81 MG TAB PO SCH (08:12)
[2016-10-09] MEDS: CHOLECALCIFEROL VIT D3 2,000 UNITS TAB/CAP PO SCH (08:13)
[2016-10-09] MEDS: ASPIRIN/DIPYRIDAMOLE CAPSULE PO SCH (08:13)
[2016-10-09] MEDS: CEFUROXIME AXETIL 250 MG TAB PO SCH (08:13)
[2016-10-09] MEDS: FOLIC ACID 1 MG TAB PO SCH (08:13)
[2016-10-09] MEDS: amLODIPine BESYLATE 5 MG TAB PO SCH (08:19)
[2016-10-09] MEDS: LISINOPRIL 5 MG TAB PO SCH (08:19)
[2016-10-09] MEDS: LISINOPRIL 40 MG TAB PO SCH (08:20)
[2016-10-09] MEDS: OMEGA-3 FATTY ACIDS 1,000 MG CAP PO SCH (08:41)
[2016-10-09] MEDS ORDERED: ONDANSETRON DISINTEGRATING 4 MG TAB PO ONE (12:00)
--- NOTE | 2016-10-09 14:09 | PDIAF ---
- Diagnosis Diagnosis: uti, weakness Code Status: Full Code - Medication Management Discharge Medications: Medications to Continue on Transfer Aspirin EC [Aspirin EC 81 mg (*)] 81 mg PO DAILY 02/26/15 [Last Taken 10/03/16] FLUoxetine [Prozac 20 MG (*)] 40 mg PO DAILY 02/26/15 [Last Taken 10/03/16] Folic Acid [Folic Acid 1 MG (*)] 1 mg PO DAILY 02/26/15 [Last Taken 10/03/16] Herbals/Supplements -Info Only 1 ea PO DAILY 02/26/15 [Last Taken 10/03/16] Lisinopril [Zestril 30 mg] 45 mg PO DAILY 02/26/15 [Last Taken 10/03/16] Methotrexate Sodium [Rheumatrex] 10 mg PO WE@02/26/15 [Last Taken 09/28/16] [place]-3 Fatty Acids [Fish Oil 1000 mg (*)] 2,000 mg PO DAILY 02/26/15 [Last Taken 10/03/16] amLODIPine BESYLATE [Norvasc 5 mg (*)] 5 mg PO DAILY 02/26/15 [Last Taken ] Aspirin/Dipyridamole 25/200 [Aggrenox] 1 cap PO BID #60 cap 02/27/15 [Last Taken 10/03/16] Atorvastatin Calcium [Lipitor 10 mg (*)] 10 mg PO DAILY #30 tab 02/27/15 [Last Taken 10/03/16] Cholecalciferol Vit D3 [Vitamin D3 (*)] 4,000 units PO DAILY 10/04/16 [Last Taken 10/03/16] Discharge Medications: Refer to the Discharge Home Medication list for PRN reason. - Orders Services needed: Physical Therapy, Occupational Therapy - Follow Up Care Current Providers and Referrals: Lee Ware MD [Primary Care Provider] - As per Instructions
--- NOTE | 2016-10-09 14:13 | PDIAF ---
- Diagnosis Diagnosis: uti, weakness Code Status: Full Code - Medication Management Discharge Medications: Medications to Continue on Transfer Aspirin EC [Aspirin EC 81 mg (*)] 81 mg PO DAILY 02/26/15 [Last Taken 10/03/16] FLUoxetine [Prozac 20 MG (*)] 40 mg PO DAILY 02/26/15 [Last Taken 10/03/16] Folic Acid [Folic Acid 1 MG (*)] 1 mg PO DAILY 02/26/15 [Last Taken 10/03/16] Herbals/Supplements -Info Only 1 ea PO DAILY 02/26/15 [Last Taken 10/03/16] Lisinopril [Zestril 30 mg] 45 mg PO DAILY 02/26/15 [Last Taken 10/03/16] Methotrexate Sodium [Rheumatrex] 10 mg PO WE@02/26/15 [Last Taken 09/28/16] [place]-3 Fatty Acids [Fish Oil 1000 mg (*)] 2,000 mg PO DAILY 02/26/15 [Last Taken 10/03/16] amLODIPine BESYLATE [Norvasc 5 mg (*)] 5 mg PO DAILY 02/26/15 [Last Taken ] Aspirin/Dipyridamole 25/200 [Aggrenox] 1 cap PO BID #60 cap 02/27/15 [Last Taken 10/03/16] Atorvastatin Calcium [Lipitor 10 mg (*)] 10 mg PO DAILY #30 tab 02/27/15 [Last Taken 10/03/16] Cholecalciferol Vit D3 [Vitamin D3 (*)] 4,000 units PO DAILY 10/04/16 [Last Taken 10/03/16] Metoprolol Tartrate 25 mg PO BID #0 tablet 10/09/16 [Last Taken Unknown] Discharge Medications: Refer to the Discharge Home Medication list for PRN reason. - Orders Services needed: Physical Therapy, Occupational Therapy - Follow Up Care Current Providers and Referrals: Lee Ware MD [Primary Care Provider] - As per Instructions
--- NOTE | 2016-10-09 15:11 | GDS ---
[f rep st] DISCHARGE SUMMARY DISCHARGE DIAGNOSES: 1. Acute on chronic weakness, most likely due to urinary tract infection. 2. Urinary tract infection. 3. Acute encephalopathy, resolved, due to medications. 4. Pacemaker dependent. 5. History of previous cerebrovascular accident. HISTORY: This is an 86-year-old female who had chronic lower extremity weakness for a year or more. Presented with worsening weakness. HOSPITAL COURSE: The patient was admitted, and concern was made for spinal stenosis. She was unable to get an MRI, and thus, she did get a CT myelogram, which did not show any significant spinal steno sis. She did have fever on the day after she came in, and her urine was positive for infection. She was given IV ceftriaxone and has defervesced. Patient did have an episode of encephalopathy the day after admission. It was due to her receiving h er full prescribed dose of Soma, which she was not taking at home. We have discontinued this medicat ion going forward. DISPOSITION: alf facility. DISCHARGE MEDICATION: She is to resume her home medicines, except for the Soma. Greater than 30 minutes was spent on discharge. /[id number]/MODL
--- NOTE | 2016-10-09 15:11 | PDIAF ---
- Diagnosis Diagnosis: uti, weakness Code Status: Full Code - Medication Management Discharge Medications: Medications to Continue on Transfer Aspirin EC [Aspirin EC 81 mg (*)] 81 mg PO DAILY 02/26/15 [Last Taken 10/03/16] FLUoxetine [Prozac 20 MG (*)] 40 mg PO DAILY 02/26/15 [Last Taken 10/03/16] Folic Acid [Folic Acid 1 MG (*)] 1 mg PO DAILY 02/26/15 [Last Taken 10/03/16] Herbals/Supplements -Info Only 1 ea PO DAILY 02/26/15 [Last Taken 10/03/16] Lisinopril [Zestril 30 mg] 45 mg PO DAILY 02/26/15 [Last Taken 10/03/16] Methotrexate Sodium [Rheumatrex] 10 mg PO WE@02/26/15 [Last Taken 09/28/16] [place]-3 Fatty Acids [Fish Oil 1000 mg (*)] 2,000 mg PO DAILY 02/26/15 [Last Taken 10/03/16] amLODIPine BESYLATE [Norvasc 5 mg (*)] 5 mg PO DAILY 02/26/15 [Last Taken ] Aspirin/Dipyridamole 25/200 [Aggrenox] 1 cap PO BID #60 cap 02/27/15 [Last Taken 10/03/16] Atorvastatin Calcium [Lipitor 10 mg (*)] 10 mg PO DAILY #30 tab 02/27/15 [Last Taken 10/03/16] Cholecalciferol Vit D3 [Vitamin D3 (*)] 4,000 units PO DAILY 10/04/16 [Last Taken 10/03/16] Acetaminophen [Tylenol 325mg (*)] 650 mg PO Q4HRS PRN #0 tab 10/09/16 [Last Taken Unknown] Metoprolol Tartrate 25 mg PO BID #0 tablet 10/09/16 [Last Taken Unknown] Ondansetron Odt [Zofran Odt 4 mg (*)] 4 mg PO Q4HRS PRN #0 tab 10/09/16 [Last Taken Unknown] Discharge Medications: Refer to the Discharge Home Medication list for PRN reason. - Orders Services needed: Physical Therapy, Occupational Therapy - Follow Up Care Current Providers and Referrals: Lee Ware MD [Primary Care Provider] - As per Instructions
[2016-10-09 16:01] VITALS: BP 150/76; PULSE 62; RESP 23; TEMP 98.3; O2SAT 95
== END 2016-10-09 17:17 | DRG 689 ==
LOC: EDUNIT# → INTOOBSV 14:44 → F3N 16:24 → OBSVTOIN 10-05 16:13 → F3N 10-07 18:51
PROVIDERS: ADMIT Internal Medicine; ATTEND Internal Medicine
PROC: 3E0R3KZ Introduction of Other Diagnostic Substance into Spinal Canal, Percutaneous Approach (ICD-10-PCS; principal; 2016-10-06)
DX: N39.0 Urinary tract infection, site not specified (principal); G92 Toxic encephalopathy; M48.06 Spinal stenosis, lumbar region; R53.1 Weakness; I10 Essential (primary) hypertension; I65.29 Occlusion and stenosis of unspecified carotid artery; K21.9 Gastro-esophageal reflux disease without esophagitis; I69.393 Ataxia following cerebral infarction; Z95.0 Presence of cardiac pacemaker
CPT/HCPCS: 97161-GP; 97165-GO; 97530-GP; 97535-GO; G0378; G8978-GP-CL; G8979-GP-CJ; G8987-GO-CM; G8988-GO-CJ; J0696; J1335; J1650; J2405; Q9966; Q9967

== ENCOUNTER 2016-11-03 10:31 | Emergency (ER) | payer OTHER, BC ==
[2016-11-03 10:45] VITALS: RESP 18
--- NOTE | 2016-11-03 10:46 | EDPHY ---
H & P Source: Patient Exam Limitations: No limitations - Personal History Tetanus Vaccine Date: 1999 - Medical/Surgical History Hx Asthma: No Hx Chronic Respiratory Disease: No Hx Diabetes: No Hx Cardiac Disease: Yes Hx Renal Disease: No Hx Cirrhosis: No Hx Alcoholism: No Hx HIV/AIDS: No Hx Splenectomy or Spleen Trauma: No Other PMH: TIA, pacemaker, macular degeneration, psoriatic arthritis, cellulitis , choly, appy, cataract removal bilateral, arthritis, lupus vasculitis - Social History Smoking Status: Never smoked Time Seen by Provider: 11/03/16 10:43 HPI/ROS: CHIEF COMPLAINT: Difficulty at home, chronic lower extremity weakness HISTORY OF PRESENT ILLNESS: The patient is brought into the ED by paramedics secondary to perceived increasing weakness in her lower extremity over the past several days. The patient was recently transfer back to her home from a alf facility where she was rehabilitating following a urinary tract infection. The patient was admitted to the hospital approximately 3 weeks ago for evaluation of lower extremity weakness. During that time, she was seen by Neurology and underwent a CT myelogram (as she was unable to tolerate MRI secondary to pacemaker) which demonstrated no evidence of significant stenosis. The patient was seen by Neurology who felt the weakness likely to be multifactorial in nature. She was advised to take antibiotics for urinary tract infection also advised to continue anti-platelet therapy. The patient tells me that she is experiencing no acute weakness today. She is having difficulty transferring into a wheelchair. She reportedly is back at home with home care. The patient denies nausea, vomiting or diarrhea. She denies fever, cough or congestion. She denies additional acute complaints. REVIEW OF SYSTEMS: A comprehensive 10 point review of systems is otherwise negative aside from elements mentioned in the history of present illness. (Giovany Pan) - Physical Exam Exam: General Appearance: Elderly female, slightly obese, no acute distress Eyes: Pupils equal and round no pallor or injection ENT, Mouth: Mucous membranes moist Respiratory: There are no retractions, lungs are clear to auscultation Cardiovascular: Regular rate and rhythm Gastrointestinal: Abdomen is soft and nontender, no masses, bowel sounds normal Neurological: Alert and oriented x4, chronic weakness noted in the bilateral lower extremities, sensation intact to light touch throughout all 4 extremities Skin: Warm and dry, no rashes Musculoskeletal: Neck is supple nontender Extremities: symmetrical, full range of motion Psychiatric: Patient is oriented X 3, there is no agitation, flat affect ( Giovany Pan) Constitutional: Initial Vital Signs Temperature (C) 36.3 C 11/03/16 10:41 Heart Rate 72 11/03/16 10:41 Respiratory Rate 18 11/03/16 10:41 Blood Pressure 105/53 L 11/03/16 10:41 O2 Sat (%) 96 11/03/16 10:41 O2 Delivery Mode Nasal Cannula O2 (L/minute) 2 Allergies/Adverse Reactions: Sulfa (Sulfonamide Antibiotics) Allergy (Severe, Verified 10/04/16 13:23) Rash morphine Allergy (Mild, Verified 10/04/16 13:23) NAUSEA Home Medications: Medication Instructions Recorded Aspirin EC [Aspirin EC 81 mg (*)] 81 mg PO DAILY 02/26/15 FLUoxetine [Prozac 20 MG (*)] 40 mg PO DAILY 02/26/15 Folic Acid [Folic Acid 1 MG (*)] 1 mg PO DAILY 02/26/15 Herbals/Supplements -Info Only 1 ea PO DAILY 02/26/15 Lisinopril [Zestril 30 mg] 45 mg PO DAILY 02/26/15 Methotrexate Sodium [Rheumatrex] 10 mg PO WE@02/26/15 [place]-3 Fatty Acids [Fish Oil 1000 2,000 mg PO DAILY 02/26/15 mg (*)] Atorvastatin Calcium [Lipitor 10 10 mg PO DAILY #30 tab 02/27/15 mg (*)] Cholecalciferol Vit D3 [Vitamin D3 4,000 units PO DAILY 10/04/16 (*)] Metoprolol Tartrate 25 mg PO BID #0 tablet 10/09/16 Aspirin 11/03/16 Atorvastatin Calcium 11/03/16 Milk of Magnesia 11/03/16 [place] 5/325 (*) 11/03/16 Medical Decision Making - Diagnostics Imaging: Bilateral lower extremity ultrasound (Giovany Pan) ED Course/Re-evaluation: The patient's daughter has presented to the ED and given collateral information. The patient has been undergoing rehabilitation at a alf facility. Her daughter would like to take her back home provided she has no evidence of a DVT. Bilateral lower extremity ultrasound has been ordered. I do not feel that the recent evaluation of her lower extremity weakness needs to be repeated. I discussed with the family the plan. They are comfortable taking the patient back to her rehab facility if her ultrasounds are negative. We will also check the the patient for recurrent urinary tract infection. Pending at this time is her urinalysis. The patient will be turned over to Dr. Baldemar Freeman at shift change pending the results of her ultrasound study and follow up on urinalysis. (Giovany Pan) Differential Diagnosis: Differential diagnosis considered includes metabolic abnormality, DVT, cellulitis, urinary tract infection (Giovany Pan) Other Provider: This patient was signed out to me by Dr. Pan pending US and UA results, with plan for discharge if negative. These results are negative and I discussed them with patient and family, who are comfortable with discharge back to SNF. ( Baldemar Freeman) - Data Points Laboratory Results: Laboratory Results 11/03/16 11:05 11/03/16 11:05 11/03/16 11/03/16 11/03/16 14:20 12:13 11:05 WBC RBC Hgb Hct MCV MCH MCHC RDW Plt Count MPV Neut % (Auto) Lymph % (Auto) [place] % (Auto) Eos % (Auto) Baso % (Auto) Nucleat RBC Rel Count Absolute Neuts (auto) Absolute Lymphs (auto) Absolute Monos (auto) Absolute Eos (auto) Absolute Basos (auto) Absolute Nucleated RBC Immature Gran % Immature Gran # Sodium 138 mEq/L mEq/L (134-144) Potassium 4.3 mEq/L mEq/L (3.5-5.2) Chloride 106 mEq/L mEq/L (97-110) Carbon Dioxide 23 mEq/l mEq/l (22-31) Anion Gap 9 mEq/L mEq/L (8-16) BUN 19 mg/dL mg/dL (7-23) Creatinine 0.8 mg/dL mg/dL (0.6-1.0) Estimated GFR > 60 Glucose 117 mg/dL H mg/dL (70-100) Calcium 10.1 mg/dL mg/dL (8.5-10.4) Urine Color YELLOW REJ Urine Appearance HAZY REJ Urine pH 5.0 REJ (5.0-7.5) Ur Specific [place] 1.017 REJ (1.002-1.030) Urine Protein NEGATIVE REJ (NEGATIVE) Urine Ketones NEGATIVE REJ (NEGATIVE) Urine Blood NEGATIVE REJ (NEGATIVE) Urine Nitrate NEGATIVE REJ (NEGATIVE) Urine Bilirubin NEGATIVE REJ (NEGATIVE) Urine Urobilinogen NEGATIVE EU EU REJ (0.2-1.0) Ur Leukocyte Esterase NEGATIVE REJ (NEGATIVE) Ur Culture Indicated? NOT INDICATED REJ (NI) Urine Glucose NEGATIVE REJ (NEGATIVE) 11/03/16 11:05 WBC 20.67 10^3/uL H 10^3/uL (3.80-9.50) RBC 3.51 10^6/uL L 10^6/uL (4.18-5.33) Hgb 12.0 g/dL L g/dL (12.6-16.3) Hct 35.3 % L % (38.0-47.0) MCV 100.6 fL H fL (81.5-99.8) MCH 34.2 pg H pg (27.9-34.1) MCHC 34.0 g/dL g/dL (32.4-36.7) RDW 14.5 % % (11.5-15.2) Plt Count 232 10^3/uL 10^3/uL (150-400) MPV 10.7 fL fL (8.7-11.7) Neut % (Auto) 85.5 % H % (39.3-74.2) Lymph % (Auto) 3.7 % L % (15.0-45.0) [place] % (Auto) 9.6 % % (4.5-13.0) Eos % (Auto) 0.2 % L % (0.6-7.6) Baso % (Auto) 0.1 % L % (0.3-1.7) Nucleat RBC Rel Count 0.0 % % (0.0-0.2) Absolute Neuts (auto) 17.67 10^3/uL H 10^3/uL (1.70-6.50) Absolute Lymphs (auto) 0.76 10^3/uL L 10^3/uL (1.00-3.00) Absolute Monos (auto) 1.99 10^3/uL H 10^3/uL (0.30-0.80) Absolute Eos (auto) 0.04 10^3/uL 10^3/uL (0.03-0.40) Absolute Basos (auto) 0.03 10^3/uL 10^3/uL (0.02-0.10) Absolute Nucleated RBC 0.00 10^3/uL 10^3/uL (0-0.01) Immature Gran % 0.9 % % (0.0-1.1) Immature Gran # 0.18 10^3/uL H 10^3/uL (0.00-0.10) Sodium Potassium Chloride Carbon Dioxide Anion Gap BUN Creatinine Estimated GFR Glucose Calcium Urine Color Urine Appearance Urine pH Ur Specific [place] Urine Protein Urine Ketones Urine Blood Urine Nitrate Urine Bilirubin Urine Urobilinogen Ur Leukocyte Esterase Ur Culture Indicated? Urine Glucose Medications Given: Discontinued Medications Sodium Chloride (Ns) 1,000 mls @ 0 mls/hr IV ONCE ONE PRN Reason: Wide Open Stop: 11/03/16 13:23 Last Admin: 11/03/16 13:24 Dose: 1,000 mls Departure - Departure Disposition: Home, Routine, Self-Care Clinical Impression: Leg weakness, bilateral Condition: Good Instructions: Leg Pain (ED) Additional Instructions: 1. Please follow up with your primary care provider as scheduled. Referrals: Lee Ware MD [Primary Care Provider] - As per Instructions
[2016-11-03 11:22] LABS: % IMMATURE GRANULYOCYTES 0.9 % (0.0-1.1); ABSOLUTE IMMATURE GRANULOCYTES 0.18 10^3/uL (0.00-0.10); ADD DIFF? NO; ADD MORPH? NO; ADD SCAN? NO; ATYPICAL LYMPHOCYTE FLAG 0 (0-99); FRAGMENT RBC FLAG 0 (0-99); HEMATOCRIT 35.3 % (38.0-47.0); LEFT SHIFT FLG 10 (0-99); LIPEMIA HEMOLYSIS FLAG 90 (0-99); MEAN CELL HEMOGLOBIN 34.2 pg (27.9-34.1); MEAN CELL VOLUME 100.6 fL (81.5-99.8); MEAN PLATELET VOLUME 10.7 fL (8.7-11.7); PLATELET CLUMPS FLAG 0 (0-99); PLATELET COUNT 232 10^3/uL (150-400); RED BLOOD CELL COUNT 3.51 10^6/uL (4.18-5.33); RED CELL DISTRIBUTION WIDTH 14.5 % (11.5-15.2)
[2016-11-03 11:29] LABS: ANION GAP 9 mEq/L (8-16); CALCIUM 10.1 mg/dL (8.5-10.4); CARBON DIOXIDE 23 mEq/l (22-31); CHLORIDE 106 mEq/L (97-110); CREATININE 0.8 mg/dL (0.6-1.0); GLOMERULAR FILTRATION RATE > 60; GLUCOSE 117 mg/dL (70-100); POTASSIUM 4.3 mEq/L (3.5-5.2); SODIUM 138 mEq/L (134-144)
[2016-11-03] MEDS ORDERED: NS 1,000 ML IV ONE (13:22)
[2016-11-03 16:56] LABS: COLOR YELLOW; LEUKOCYTE ESTERASE,URINE NEGATIVE (NEGATIVE); NITRITE,URINE NEGATIVE (NEGATIVE)
[2016-11-03 18:29] VITALS: BP 118/73; PULSE 60; TEMP 97.9; O2SAT 97
== END 2016-11-03 18:29 | disposition home or self-care (01) ==
LOC: EDUNIT#
DX: R53.1 Weakness (principal); Z79.82 Long term (current) use of aspirin; Z86.73 Personal history of transient ischemic attack (TIA), and cerebral infarction without residual deficits; Z95.0 Presence of cardiac pacemaker

== ENCOUNTER → 2017-07-19 | Outpatient (CLI) | payer OTHER, BC | LOC: BMCIMAGING 11:10 | PROVIDERS: ATTEND Internal Medicine Rheumatology | DX: Z13.820 Encounter for screening for osteoporosis (principal); M81.0 Age-related osteoporosis without current pathological fracture ==

== ENCOUNTER 2017-07-26 13:27 | Inpatient (IN) | payer OTHER, BC ==
--- NOTE | 2017-07-26 13:44 | EDPHY ---
H & P HPI/ROS: CHIEF COMPLAINT: Sudden drowsiness HISTORY OF PRESENT ILLNESS: The patient is an 87 y/o female with a history of UTIs arriving via EMS after a caregiver noted sudden drowsiness. Just prior to arrival, the caregiver was painting the pt's nails when the pt suddenly became very drowsy. She was able to answer questions, but then quickly fall back to sleep. She has had a cough for a couple of days, but no nasal congestion, sore throat or fever. In September, the patient had a similar presentation and wasdiagnosed with a UTI. After treatment with antibiotics, she returned to her baseline. She has frequent UTIs and had a routine urinalysis 3 days ago that was normal. She denies any recent fever, dysuria, pain, or other associated symptom. She denies any recent changes in medication. History primarily obtained from caregiver due to patient's condition. REVIEW OF SYSTEMS: Difficult to obtain due to patient's condition Constitutional: No fever, no chills Eyes: No visual changes ENT: No sore throat Respiratory: no shortness of breath Cardiac: No chest pain Gastrointestinal: no vomiting, no abdominal pain Genitourinary:no dysuria Musculoskeletal: No myalgias Skin: No rash Neurological: No headache Psychiatric: No depression Past Medical/Surgical History: UTIs, TIA, pacemaker Social History: Lives with her son and [id number], has a caregiver, retired, lives in [place] Smoking Status: Never smoked Physical Exam: General Appearance: somnolent Eyes: Pupils equal and round, no conjunctival pallor or injection ENT, Mouth: Mucous membranes moist Neck: Normal inspection Respiratory: Lungs are clear to auscultation Cardiovascular: Regular rate and rhythm Gastrointestinal: Abdomen is soft and non- tender Neurological: somnolent, opens eyes to tactile stimuli, able to answer yes/no questions, tell me her name, 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 strength equal bilaterally, able to hold up legs against gravity equally Skin: Warm and dry, no rash Extremities: Nontender, no pedal edema Psychiatric: Mood and affect normal Constitutional: Initial Vital Signs Temperature (C) 37 C 07/26/17 13:37 Heart Rate 69 07/26/17 13:37 Respiratory Rate 14 07/26/17 13:37 Blood Pressure 140/84 H 07/26/17 13:37 O2 Sat (%) 91 L 07/26/17 13:37 O2 Delivery Mode Room Air Allergies/Adverse Reactions: Sulfa (Sulfonamide Antibiotics) Allergy (Severe, Verified 10/04/16 13:23) Rash morphine Allergy (Mild, Verified 10/04/16 13:23) NAUSEA Home Medications: Medication Instructions Recorded Folic Acid [Folic Acid 1 MG (*)] 1 mg PO DAILY 02/26/15 Herbals/Supplements -Info Only 1 ea PO DAILY 02/26/15 Methotrexate Sodium [Rheumatrex] 10 mg PO WE@02/26/15 [place]-3 Fatty Acids [Fish Oil 1000 2,000 mg PO DAILY 02/26/15 mg (*)] Cholecalciferol Vit D3 [Vitamin D3 4,000 units PO DAILY 10/04/16 (*)] Metoprolol Tartrate 25 mg PO BID #0 tablet 10/09/16 Atorvastatin Calcium [Lipitor 10 10 mg PO DAILY 11/03/16 mg (*)] Hydrocodone/APAP 5/325 [[place] 1 each PO BID PRN 11/03/16 5/325 (*)] Acetaminophen [Tylenol 325mg (*)] 650 mg PO Q6 PRN 07/26/17 Aspirin/Dipyridamole 25/200 1 each PO BID 07/26/17 [Aggrenox] Lisinopril [Zestril 40 mg (*)] 40 mg PO DAILY 07/26/17 Nystatin Powder [Mycostatin Powder 1 johann TP DAILY 07/26/17 (RX)] amLODIPine BESYLATE [Norvasc 5 mg 5 mg PO DAILY 07/26/17 (*)] Medical Decision Making - Diagnostics EKG Interpretation: EKG interpreted by me reveals a paced rhythm, rate 60, low voltage Imaging Results: Imaging Impressions Chest X-Ray 07/26/17 13:38 Impression: 1. New left basilar consolidation and effusion. Pneumonia versus atelectasis. 2. Hypoventilation and borderline CHF. Head CT 07/26/17 13:38 Impression: 1. No acute intracranial hemorrhage, mass, or evidence of acute cortical ischemia. 2. Atrophy and white matter disease unchanged since September 2016. Findings discussed with Emergency Department physician, Leesa Vences, at 1420 hours on July 26, 2017. Imaging: Discussed imaging studies w/ callisthenics instructor Radiologist, I viewed and interpreted images myself ED Course/Re-evaluation: The patient is an 87 y/o female arriving via EMS for sudden drowsiness. Most likely secondary to infectious etiology. There is no evidence of an acute CVA on physical exam and glucose per EMS was adequate. Plan for labs, blood culture , urinalysis, head CT, chest X-ray. 1456: Head CT is clear, chest X-ray shows a left lower lobe infiltrate. Urinalysis is still pending. Blood cultures drawn and Levaquin 750 mg IV given. She does not meet SIRS criteria. Plan for admission with pneumonia. She remains somnolent, but is arousable with tactile stimuli. 1527: I consulted with the hospitalist service regarding admission for this patient. Dr. Rodas will be admitting doctor. The patient was stable throughout her emergency department stay. Vital signs were normal. Differential Diagnosis: The differential diagnosis for the patient's neurologic deficits included but was not limited to peripheral causes, central causes including UTI, pneumonia, sepsis, CVA, TIA, electrolyte abnormalities and dehydration, cardiogenic causes , atypical causes like migraine syndrome. - Data Points Laboratory Results: Laboratory Results 07/26/17 14:21 07/26/17 14:21 07/26/17 07/26/17 07/26/17 15:00 14:21 14:21 WBC 6.32 10^3/uL 10^3/uL (3.80-9.50) RBC 3.43 10^6/uL L 10^6/uL (4.18-5.33) Hgb 12.4 g/dL L g/dL (12.6-16.3) Hct 36.2 % L % (38.0-47.0) MCV 105.5 fL H fL (81.5-99.8) MCH 36.2 pg H pg (27.9-34.1) MCHC 34.3 g/dL g/dL (32.4-36.7) RDW 14.6 % % (11.5-15.2) Plt Count 182 10^3/uL 10^3/uL (150-400) MPV 10.8 fL fL (8.7-11.7) Neut % (Auto) 65.9 % % (39.3-74.2) Lymph % (Auto) 11.6 % L % (15.0-45.0) [place] % (Auto) 18.2 % H % (4.5-13.0) Eos % (Auto) 2.1 % % (0.6-7.6) Baso % (Auto) 0.5 % % (0.3-1.7) Nucleat RBC Rel Count 0.0 % % (0.0-0.2) Absolute Neuts (auto) 4.17 10^3/uL 10^3/uL (1.70-6.50) Absolute Lymphs (auto) 0.73 10^3/uL L 10^3/uL (1.00-3.00) Absolute Monos (auto) 1.15 10^3/uL H 10^3/uL (0.30-0.80) Absolute Eos (auto) 0.13 10^3/uL 10^3/uL (0.03-0.40) Absolute Basos (auto) 0.03 10^3/uL 10^3/uL (0.02-0.10) Absolute Nucleated RBC 0.00 10^3/uL 10^3/uL (0-0.01) Immature Gran % 1.7 % H % (0.0-1.1) Immature Gran # 0.11 10^3/uL H 10^3/uL (0.00-0.10) VBG Lactic Acid Sodium 142 mEq/L mEq/L (134-144) Potassium 4.2 mEq/L mEq/L (3.5-5.2) Chloride 106 mEq/L mEq/L (97-110) Carbon Dioxide 24 mEq/l mEq/l (22-31) Anion Gap 12 mEq/L mEq/L (8-16) BUN 22 mg/dL mg/dL (7-23) Creatinine 0.8 mg/dL mg/dL (0.6-1.0) Estimated GFR > 60 Glucose 100 mg/dL mg/dL (70-100) Calcium 10.1 mg/dL mg/dL (8.5-10.4) Troponin I 0.032 ng/mL ng/mL (0.000-0.034) Urine Color YELLOW Urine Appearance HAZY Urine pH 5.0 (5.0-7.5) Ur Specific [place] 1.019 (1.002-1.030) Urine Protein NEGATIVE (NEGATIVE) Urine Ketones NEGATIVE (NEGATIVE) Urine Blood 2+ H (NEGATIVE) Urine Nitrate NEGATIVE (NEGATIVE) Urine Bilirubin NEGATIVE (NEGATIVE) Urine Urobilinogen NEGATIVE EU EU (0.2-1.0) Ur Leukocyte Esterase NEGATIVE (NEGATIVE) Urine RBC 3-5 /hpf H /hpf (0-3) Urine WBC 3-5 /hpf H /hpf (0-3) Ur Epithelial Cells TRACE /lpf /lpf (NONE-1+) Urine Mucus TRACE /lpf /lpf (NONE-1+) Urine Glucose NEGATIVE (NEGATIVE) 07/26/17 14:21 WBC RBC Hgb Hct MCV MCH MCHC RDW Plt Count MPV Neut % (Auto) Lymph % (Auto) [place] % (Auto) Eos % (Auto) Baso % (Auto) Nucleat RBC Rel Count Absolute Neuts (auto) Absolute Lymphs (auto) Absolute Monos (auto) Absolute Eos (auto) Absolute Basos (auto) Absolute Nucleated RBC Immature Gran % Immature Gran # VBG Lactic Acid 1.5 mmol/L mmol/L (0.7-2.1) Sodium Potassium Chloride Carbon Dioxide Anion Gap BUN Creatinine Estimated GFR Glucose Calcium Troponin I Urine Color Urine Appearance Urine pH Ur Specific [place] Urine Protein Urine Ketones Urine Blood Urine Nitrate Urine Bilirubin Urine Urobilinogen Ur Leukocyte Esterase Urine RBC Urine WBC Ur Epithelial Cells Urine Mucus Urine Glucose Medications Given: Sodium Chloride (Ns) 1,000 mls @ 75 mls/hr IV CONT ZARA Stop: 01/22/18 15:44 Last Admin: 07/26/17 18:36 Dose: 1,000 mls Discontinued Medications Levofloxacin/Dextrose (Levaquin 750 Mg (Premix)) 150 mls @ 100 mls/hr IV EDNOW ONE PRN Reason: Protocol Stop: 07/26/17 16:25 Last Admin: 07/26/17 15:16 Dose: 150 mls Departure - Departure Disposition: [facility] Inpatient Acute Clinical Impression: Pneumonia Qualifiers: Pneumonia type: due to unspecified organism Laterality: left Lung location: unspecified part of lung Qualified Code(s): J18.9 - Pneumonia, unspecified organism Condition: Fair Report Scribed for: Leesa Vences Report Scribed by: Kylee Vora Date of Report: 07/26/17 Time of Report: 13:44 Physician Review and Approval Statement: 07/26/17 13:44 Portions of this note were transcribed by a manager medical writing. I personally performed a history, physical exam, medical decision making, and confirmed accuracy of information the transcribed note.
[2017-07-26 14:32] LABS: % IMMATURE GRANULYOCYTES 1.7 % (0.0-1.1); ABSOLUTE IMMATURE GRANULOCYTES 0.11 10^3/uL (0.00-0.10); ADD DIFF? NO; ADD MORPH? NO; ADD SCAN? NO; ATYPICAL LYMPHOCYTE FLAG 20 (0-99); FRAGMENT RBC FLAG 0 (0-99); HEMATOCRIT 36.2 % (38.0-47.0); HEMOGLOBIN 12.4 g/dL (12.6-16.3); LEFT SHIFT FLG 10 (0-99); LIPEMIA HEMOLYSIS FLAG 90 (0-99); MEAN CELL HEMOGLOBIN 36.2 pg (27.9-34.1); MEAN CELL HEMOGLOBIN CONCENTR. 34.3 g/dL (32.4-36.7); MEAN CELL VOLUME 105.5 fL (81.5-99.8); MEAN PLATELET VOLUME 10.8 fL (8.7-11.7); PLATELET CLUMPS FLAG 10 (0-99); PLATELET COUNT 182 10^3/uL (150-400); RED BLOOD CELL COUNT 3.43 10^6/uL (4.18-5.33); RED CELL DISTRIBUTION WIDTH 14.6 % (11.5-15.2)
[2017-07-26 14:46] LABS: ANION GAP 12 mEq/L (8-16); CALCIUM 10.1 mg/dL (8.5-10.4); CARBON DIOXIDE 24 mEq/l (22-31); CHLORIDE 106 mEq/L (97-110); CREATININE 0.8 mg/dL (0.6-1.0); GLOMERULAR FILTRATION RATE > 60; GLUCOSE 100 mg/dL (70-100); POTASSIUM 4.2 mEq/L (3.5-5.2); SODIUM 142 mEq/L (134-144)
[2017-07-26 14:58] LABS: TROPONIN I 0.032 ng/mL (0.000-0.034)
[2017-07-26 15:17] LABS: COLOR YELLOW; LEUKOCYTE ESTERASE,URINE NEGATIVE (NEGATIVE); NITRITE,URINE NEGATIVE (NEGATIVE)
[2017-07-26 15:21] LABS: MUCUS TRACE /lpf (NONE-1+)
--- NOTE | 2017-07-26 15:29 | CPEKG ---
Heart Rate: 60 RR Interval: 1000 QRSD Interval: 88 QT Interval: 448 QTC Interval: 448 QRS [place]: -27 T Wave [place]: 105 EKG Severity - ABNORMAL ECG - EKG Impression: paced rhythm EKG Impression: MULTIPLE VENTRICULAR PREMATURE COMPLEXES EKG Impression: BORDERLINE LEFT AXIS DEVIATION EKG Impression: LOW VOLTAGE IN FRONTAL LEADS EKG Impression: NONSPECIFIC T ABNORMALITIES, LATERAL LEADS Electronically Signed By: Leesa Vences 26-Jul-2017 20:55:04
[2017-07-26] MEDS ORDERED: ONDANSETRON 4 MG/2 ML VIAL IVP PRN (15:31)
[2017-07-26] MEDS ORDERED: ACETAMINOPHEN 650 MG SUPP PR PRN (15:31)
[2017-07-26] MEDS ORDERED: NS 1,000 ML IV SCH (15:45)
[2017-07-26] MEDS ORDERED: ALBUTEROL 3 ML DEYVIAL IH PRN (16:02)
--- NOTE | 2017-07-26 16:05 | PDGENHP ---
History and Physical - Chief Complaint cough, somnolence - History of Present Illness 87 yo female with h/o psoriatic arthritis on methotrexate, CVA and hypertension presented to ED with altered mentation. She awakens and answers questions for me. She states she developed a productive cough 3 days [employer]. Denies fevers or chills. No CP or SOB. Today, while her caregiver was doing her nails, she became more somnolent and was brought to the ED. She has a h/o UTI presenting with altered mentation. However, she denies urinary symptoms such as dysuria, frequency, or urgency today. In the ED, workup revealed an LLL pneumonia. Blood cultures were drawn and she was treated with Levaquin. She is admitted to the hospital for further evaluation. History Information - Allergies/Home Medication List Allergies/Adverse Reactions: Sulfa (Sulfonamide Antibiotics) Allergy (Severe, Verified 10/04/16 13:23) Rash morphine Allergy (Mild, Verified 10/04/16 13:23) NAUSEA Home Medications: Folic Acid [Folic Acid 1 MG (*)] 1 mg PO DAILY 02/26/15 [Last Taken 07/26/17] Herbals/Supplements -Info Only 1 ea PO DAILY 02/26/15 [Last Taken 10/03/16] Methotrexate Sodium [Rheumatrex] 10 mg PO WE@02/26/15 [Last Taken 07/26/17 09 :00] [place]-3 Fatty Acids [Fish Oil 1000 mg (*)] 2,000 mg PO DAILY 02/26/15 [Last Taken 07/26/17] Cholecalciferol Vit D3 [Vitamin D3 (*)] 4,000 units PO DAILY 10/04/16 [Last Taken 07/26/17] Atorvastatin Calcium [Lipitor 10 mg (*)] 10 mg PO DAILY 11/03/16 [Last Taken ] Hydrocodone/APAP 5/325 [[place] 5/325 (*)] 1 each PO BID PRN 11/03/16 [Last Taken 07/26/17 09:00] Acetaminophen [Tylenol 325mg (*)] 650 mg PO Q6 PRN 07/26/17 [Last Taken 1 Week Ago ~07/19/17] Aspirin/Dipyridamole 25/200 [Aggrenox] 1 each PO BID 07/26/17 [Last Taken 09:00] Lisinopril [Zestril 40 mg (*)] 40 mg PO DAILY 07/26/17 [Last Taken 07/26/17] Nystatin Powder [Mycostatin Powder (RX)] 1 johann TP DAILY 07/26/17 [Last Taken Unknown] amLODIPine BESYLATE [Norvasc 5 mg (*)] 5 mg PO DAILY 07/26/17 [Last Taken ] I have personally reviewed and updated: family history, medical history, social history, surgical history - Past Medical History CVA (Cerebellar with resultant ataxia), hypertension Additional medical history: Depression. Psoriatic arthritis. Osteoarthritis. Macular degeneration. GERD. Sick sinus syndrome. Carotid stenosis, 50-75% bilaterally - Surgical History Reports: appendectomy, cholecystectomy Additional surgical history: Permanent pacemaker - Family History Additional family history: Patient denies any recent sick family contacts - Social History Smoking Status: Never smoked Alcohol Use: None Drug Use: None Additional social history: She lives in a family home with her son and has home health Review of Systems Review of Systems: ROS: 10pt was reviewed & negative except for what was stated in HPI & below Physical Exam Physical Exam: Temp Pulse Resp BP Pulse Ox 37 C 61 20 149/84 H 92 07/26/17 13:37 07/26/17 15:13 07/26/17 15:13 07/26/17 15:13 07/26/17 15:13 Constitutional: no apparent distress Eyes: PERRL Ears, Nose, Mouth, Throat: moist mucous membranes Cardiovascular: regular rate and rhythym, no murmur, rub, or gallop Respiratory: no respiratory distress, inspiratory crackles Gastrointestinal: normoactive bowel sounds, soft, non-tender abdomen Skin: warm Musculoskeletal: full muscle strength Psychiatric: encephalopathic Lab Data & Imaging Review 07/26/17 14:21 07/26/17 14:21 WBC 6.32 10^3/uL (3.80-9.50) 07/26/17 14:21 RBC 3.43 10^6/uL (4.18-5.33) L 07/26/17 14:21 Hgb 12.4 g/dL (12.6-16.3) L 07/26/17 14:21 Hct 36.2 % (38.0-47.0) L 07/26/17 14:21 MCV 105.5 fL (81.5-99.8) H 07/26/17 14:21 MCH 36.2 pg (27.9-34.1) H 07/26/17 14:21 MCHC 34.3 g/dL (32.4-36.7) 07/26/17 14:21 RDW 14.6 % (11.5-15.2) 07/26/17 14:21 Plt Count 182 10^3/uL (150-400) 07/26/17 14:21 MPV 10.8 fL (8.7-11.7) 07/26/17 14:21 Neut % (Auto) 65.9 % (39.3-74.2) 07/26/17 14:21 Lymph % (Auto) 11.6 % (15.0-45.0) L 07/26/17 14:21 [place] % (Auto) 18.2 % (4.5-13.0) H 07/26/17 14:21 Eos % (Auto) 2.1 % (0.6-7.6) 07/26/17 14:21 Baso % (Auto) 0.5 % (0.3-1.7) 07/26/17 14:21 Nucleat RBC Rel Count 0.0 % (0.0-0.2) 07/26/17 14:21 Absolute Neuts (auto) 4.17 10^3/uL (1.70-6.50) 07/26/17 14:21 Absolute Lymphs (auto) 0.73 10^3/uL (1.00-3.00) L 07/26/17 14:21 Absolute Monos (auto) 1.15 10^3/uL (0.30-0.80) H 07/26/17 14:21 Absolute Eos (auto) 0.13 10^3/uL (0.03-0.40) 07/26/17 14:21 Absolute Basos (auto) 0.03 10^3/uL (0.02-0.10) 07/26/17 14:21 Absolute Nucleated RBC 0.00 10^3/uL (0-0.01) 07/26/17 14:21 Immature Gran % 1.7 % (0.0-1.1) H 07/26/17 14:21 Immature Gran # 0.11 10^3/uL (0.00-0.10) H 07/26/17 14:21 VBG Lactic Acid 1.5 mmol/L (0.7-2.1) 07/26/17 14:21 Sodium 142 mEq/L (134-144) 07/26/17 14:21 Potassium 4.2 mEq/L (3.5-5.2) 07/26/17 14:21 Chloride 106 mEq/L (97-110) 07/26/17 14:21 Carbon Dioxide 24 mEq/l (22-31) 07/26/17 14:21 Anion Gap 12 mEq/L (8-16) 07/26/17 14:21 BUN 22 mg/dL (7-23) 07/26/17 14:21 Creatinine 0.8 mg/dL (0.6-1.0) 07/26/17 14:21 Estimated GFR > 60 07/26/17 14:21 Glucose 100 mg/dL (70-100) 07/26/17 14:21 Calcium 10.1 mg/dL (8.5-10.4) 07/26/17 14:21 Troponin I 0.032 ng/mL (0.000-0.034) 07/26/17 14:21 Urine Color YELLOW 07/26/17 15:00 Urine Appearance HAZY 07/26/17 15:00 Urine pH 5.0 (5.0-7.5) 07/26/17 15:00 Ur Specific [place] 1.019 (1.002-1.030) 07/26/17 15:00 Urine Protein NEGATIVE (NEGATIVE) 07/26/17 15:00 Urine Ketones NEGATIVE (NEGATIVE) 07/26/17 15:00 Urine Blood 2+ (NEGATIVE) H 07/26/17 15:00 Urine Nitrate NEGATIVE (NEGATIVE) 07/26/17 15:00 Urine Bilirubin NEGATIVE (NEGATIVE) 07/26/17 15:00 Urine Urobilinogen NEGATIVE EU (0.2-1.0) 07/26/17 15:00 Ur Leukocyte Esterase NEGATIVE (NEGATIVE) 07/26/17 15:00 Urine RBC 3-5 /hpf (0-3) H 07/26/17 15:00 Urine WBC 3-5 /hpf (0-3) H 07/26/17 15:00 Ur Epithelial Cells TRACE /lpf (NONE-1+) 07/26/17 15:00 Urine Mucus TRACE /lpf (NONE-1+) 07/26/17 15:00 Urine Glucose NEGATIVE (NEGATIVE) 07/26/17 15:00 Visualized and Interpreted Chest x-ray results: Yes Chest X-Ray results: infiltrate Visualized and Interpreted EKG results: Yes EKG Interpretation: Positive for: other (paced rhythm) Assessment & Plan Assessment: Pneumonia (Acute) - She is at risk given her immunocompromised state on MTX. Not requiring O2. Flu pending. BCx's pending. -IV Levaquin -send sputum culture -check pneumococcal, legionella Ags -NPO until speech eval given somnolence Acute encephalopathy - presumed due to above, CT head neg -NPO as above -gentle IVF's overnight for hydration Psoriatic arthritis - hold MTX for now given infection SSS with pacer - Hypertension - awaiting med rec DVT PPLX - high risk, Lovenox Full code by default, pt unable to have this conversation, please address in am Dispo - inpt
[2017-07-26] MEDS: HEPARIN 5,000 UNIT/0.5 ML SYR SC SCH (22:15)
[2017-07-27 06:20] LABS: % IMMATURE GRANULYOCYTES 1.5 % (0.0-1.1); ABSOLUTE IMMATURE GRANULOCYTES 0.08 10^3/uL (0.00-0.10); ADD DIFF? NO; ADD MORPH? NO; ADD SCAN? NO; ATYPICAL LYMPHOCYTE FLAG 30 (0-99); FRAGMENT RBC FLAG 0 (0-99); HEMATOCRIT 34.3 % (38.0-47.0); HEMOGLOBIN 11.7 g/dL (12.6-16.3); LEFT SHIFT FLG 10 (0-99); LIPEMIA HEMOLYSIS FLAG 90 (0-99); MEAN CELL HEMOGLOBIN 35.9 pg (27.9-34.1); MEAN CELL HEMOGLOBIN CONCENTR. 34.1 g/dL (32.4-36.7); MEAN CELL VOLUME 105.2 fL (81.5-99.8); MEAN PLATELET VOLUME 11.1 fL (8.7-11.7); PLATELET CLUMPS FLAG 10 (0-99); PLATELET COUNT 174 10^3/uL (150-400); RED BLOOD CELL COUNT 3.26 10^6/uL (4.18-5.33); RED CELL DISTRIBUTION WIDTH 14.6 % (11.5-15.2)
[2017-07-27] MEDS: HEPARIN 5,000 UNIT/0.5 ML SYR SC SCH ×3 (06:25→21:26)
--- NOTE | 2017-07-27 10:03 | PDMN ---
Medical Necessity Medical necessity: Pt meets IP criteria per MD; est los >2 mn for eval/tx of LLL Pneumonia & acute encephalopathy; admit for IV abx, IVF, blood/sputum cxs; comorbid immunocompromised state r/t psoriatic arthritis/methotrexate use, CVA, HTN, SSS w/pacer & UTIs; per H&P & order 07/26/17
[2017-07-27] MEDS: METOPROLOL TARTRATE 25 MG TAB PO SCH ×2 (10:19→21:26)
[2017-07-27] MEDS: amLODIPine BESYLATE 5 MG TAB PO SCH (10:19)
[2017-07-27] MEDS: ASPIRIN/DIPYRIDAMOLE CAPSULE PO SCH ×2 (10:19→21:26)
[2017-07-27] MEDS: LISINOPRIL 40 MG TAB PO SCH (10:19)
[2017-07-27] MEDS: NYSTATIN POWDER 15 GM BTL TP SCH (10:20)
[2017-07-27] MEDS: ATORVASTATIN CALCIUM 10 MG TAB PO SCH (10:21)
--- NOTE | 2017-07-27 12:20 | HOSPPROG ---
Hospitalist Progress Note Assessment/Plan: 87y female with ams. First encounter, chart reviewed. D/W CM and PT. Pneumonia (Acute) - She is at risk given her immunocompromised state on MTX. Not requiring O2. Flu negative. BCx's pending. -IV Levaquin -sputum culture ordered -check pneumococcal, legionella Ags Acute encephalopathy - presumed due to above, CT head neg -resolved -got IVF's overnight for hydration Psoriatic arthritis - hold MTX for now given infection SSS with pacer - Hypertension - home meds DVT PPLX - high risk, Lovenox Full code Dispo - inpt Subjective: Up in the chair. Feels like she lost time. No other issues. Objective: Vital Signs Temp Pulse Resp BP Pulse Ox 36.7 C 61 18 141/79 H 89 L 07/27/17 11:10 07/27/17 11:10 07/27/17 11:10 07/27/17 11:10 07/27/17 11:10 Laboratory Results 07/27/17 05:20 07/26/17 07/27/17 07/28/17 05:59 05:59 05:59 Intake Total 0 Balance 0 - Physical Exam Constitutional: not in pain, chronically ill appearing, obese Eyes: PERRL, anicteric sclera, EOMI Ears, Nose, Mouth, Throat: moist mucous membranes, hearing normal, ears appear normal Cardiovascular: regular rate and rhythym, No JVD, No edema Respiratory: no respiratory distress, no rales or rhonchi, reduced air movement Gastrointestinal: No tenderness, No ascites, No guarding Skin: warm, normal color, No erythema Musculoskeletal: normal joint ROM, no joint effusions, generalized weakness Neurologic: AAOx3 Psychiatric: not anxious, not encephalopathic, thought process linear ICD10 Worksheet Patient Problems: Problems Problem Status Onset Ischemic stroke Acute Leg weakness, bilateral Acute UTI (urinary tract infection) Acute Pneumonia Acute
--- NOTE | 2017-07-27 17:15 | ASMTCMCOM ---
CM Note CM Note Notes: Pt lives with dtr who is battling ovarian ca, may need SNF per PT/OT recommendations, CM to speak w/pt in am. Date Signed: 07/27/2017 05:15 PM Electronically Signed By:Namrata Olivas RN
[2017-07-28] MEDS: HEPARIN 5,000 UNIT/0.5 ML SYR SC SCH ×3 (06:14→21:38)
[2017-07-28] MEDS: LISINOPRIL 40 MG TAB PO SCH (10:01)
[2017-07-28] MEDS: METOPROLOL TARTRATE 25 MG TAB PO SCH ×2 (10:01→21:49)
[2017-07-28] MEDS: ASPIRIN/DIPYRIDAMOLE CAPSULE PO SCH ×2 (10:01→21:38)
[2017-07-28] MEDS: amLODIPine BESYLATE 5 MG TAB PO SCH (10:01)
[2017-07-28] MEDS: ATORVASTATIN CALCIUM 10 MG TAB PO SCH (10:01)
[2017-07-28] MEDS: NYSTATIN POWDER 15 GM BTL TP SCH (10:02)
--- NOTE | 2017-07-28 12:59 | HOSPPROG ---
Hospitalist Progress Note Assessment/Plan: 87y female with ams. D/W CM and PT. Pneumonia (Acute) - She is at risk given her immunocompromised state on MTX. Not requiring O2. Flu negative. BCx's pending. -IV Levaquin -possible aspiration -video swallow ordered - improving Acute encephalopathy - presumed due to above, CT head neg -resolved Psoriatic arthritis - hold MTX for now given infection SSS with pacer - Hypertension - home meds DVT PPLX - high risk, Lovenox Full code Dispo - inpt likely DC home in am with HHC considering SNF Subjective: Up in chair. Feeling better. No new issues. Objective: Vital Signs Temp Pulse Resp BP Pulse Ox 37.0 C 60 18 153/73 H 92 07/28/17 07:25 07/28/17 07:25 07/28/17 07:25 07/28/17 07:25 07/28/17 07:25 Laboratory Results 07/27/17 05:20 07/27/17 07/28/17 07/29/17 05:59 05:59 05:59 Intake Total 0 240 Balance 0 240 - Physical Exam Constitutional: no apparent distress, not in pain Eyes: PERRL, anicteric sclera Ears, Nose, Mouth, Throat: moist mucous membranes, hearing normal Cardiovascular: regular rate and rhythym, No JVD Respiratory: no respiratory distress, reduced air movement Gastrointestinal: No tenderness, No ascites Skin: warm, normal color Musculoskeletal: no joint effusions, pain with ROM, generalized weakness Neurologic: AAOx3 Psychiatric: not anxious, not encephalopathic, thought process linear ICD10 Worksheet Patient Problems: Problems Problem Status Onset Ischemic stroke Acute Leg weakness, bilateral Acute UTI (urinary tract infection) Acute Pneumonia Acute
[2017-07-29] MEDS: HEPARIN 5,000 UNIT/0.5 ML SYR SC SCH (05:47)
[2017-07-29 07:35] VITALS: BP 133/77; PULSE 60; RESP 16; TEMP 98.5; O2SAT 92
[2017-07-29] MEDS: ASPIRIN/DIPYRIDAMOLE CAPSULE PO SCH (08:15)
[2017-07-29] MEDS: LISINOPRIL 40 MG TAB PO SCH (08:16)
[2017-07-29] MEDS: ATORVASTATIN CALCIUM 10 MG TAB PO SCH (08:16)
[2017-07-29] MEDS: METOPROLOL TARTRATE 25 MG TAB PO SCH (08:16)
[2017-07-29] MEDS: amLODIPine BESYLATE 5 MG TAB PO SCH (08:16)
[2017-07-29] MEDS: NYSTATIN POWDER 15 GM BTL TP SCH (08:30)
--- NOTE | 2017-07-29 08:36 | HOSPPROG ---
Hospitalist Progress Note Assessment/Plan: 87y female with altered mental status. Today is my 1st encounter with the patient. Chart reviewed. Pneumonia (Acute) POA - She is at risk given her immunocompromised state on MTX. Not requiring O2. - Flu negative. Blood cultures show no growth - IV Levaquin -video swallo showed no aspiration Acute encephalopathy - presumed due to above, CT head neg -resolved Psoriatic arthritis - hold MTX for now given infection SSS with pacer - Hypertension - home meds DVT PPLX - high risk, Lovenox Full code Dispo -will discharge discussing facility. Patient feels she would benefit from some strengthening Subjective: [place] is feeling much better today feels too weak to return home Objective: Vital Signs Temp Pulse Resp BP Pulse Ox 36.9 C 60 16 133/77 H 92 07/29/17 07:34 07/29/17 08:16 07/29/17 07:34 07/29/17 08:16 07/29/17 07:34 Laboratory Results 07/27/17 05:20 07/28/17 07/29/17 07/30/17 05:59 05:59 05:59 Intake Total 240 750 Output Total 250 Balance 240 500 - Physical Exam Constitutional: no apparent distress, appears nourished, not in pain, obese Eyes: PERRL Ears, Nose, Mouth, Throat: hearing normal Cardiovascular: regular rate and rhythym Respiratory: no respiratory distress, clear to auscultation Gastrointestinal: normoactive bowel sounds Skin: warm Neurologic: AAOx3 Psychiatric: interacting appropriately ICD10 Worksheet Patient Problems: Problems Problem Status Onset Pneumonia Acute Ischemic stroke Acute Leg weakness, bilateral Acute UTI (urinary tract infection) Acute
--- NOTE | 2017-07-29 10:23 | PDIAF ---
- Diagnosis Diagnosis: pneumonia/ psoriatric athritis Code Status: Full Code - Medication Management Discharge Medications: Medications to Continue on Transfer Folic Acid [Folic Acid 1 MG (*)] 1 mg PO DAILY 02/26/15 [Last Taken 07/26/17] Herbals/Supplements -Info Only 1 ea PO DAILY 02/26/15 [Last Taken 10/03/16] Methotrexate Sodium [Rheumatrex] 10 mg PO WE@02/26/15 [Last Taken 07/26/17 09 :00] [place]-3 Fatty Acids [Fish Oil 1000 mg (*)] 2,000 mg PO DAILY 02/26/15 [Last Taken 07/26/17] Cholecalciferol Vit D3 [Vitamin D3 (*)] 4,000 units PO DAILY 10/04/16 [Last Taken 07/26/17] Metoprolol Tartrate 25 mg PO BID #0 tablet 10/09/16 [Last Taken 07/26/17 09:00] Atorvastatin Calcium [Lipitor 10 mg (*)] 10 mg PO DAILY 11/03/16 [Last Taken ] Hydrocodone/APAP 5/325 [[place] 5/325 (*)] 1 each PO BID PRN 11/03/16 [Last Taken 07/26/17 09:00] Acetaminophen [Tylenol 325mg (*)] 650 mg PO Q6 PRN 07/26/17 [Last Taken 1 Week Ago ~07/19/17] Aspirin/Dipyridamole 25/200 [Aggrenox] 1 each PO BID 07/26/17 [Last Taken 09:00] Lisinopril [Zestril 40 mg (*)] 40 mg PO DAILY 07/26/17 [Last Taken 07/26/17] Nystatin Powder [Mycostatin Powder] 1 johann TP DAILY 07/26/17 [Last Taken Unknown] amLODIPine BESYLATE [Norvasc 5 mg (*)] 5 mg PO DAILY 07/26/17 [Last Taken ] levOFLOXACIN [levAQUIN (*)] 750 mg PO DAILY #4 tab 07/29/17 [Last Taken Unknown] Discharge Medications: Refer to the Discharge Home Medication list for PRN reason. PICC Care - Routine: N/A - Orders Services needed: Physical Therapy, Occupational Therapy Isolation Type: Chemotherapy Isolation Diet Recommendation: sodium restricted Diet Texture: Regular Texture Diet, Thin Liquids, Meds Whole w/Liquids Additional: Give Levaquin for 4 more days - Follow Up Care Current Providers and Referrals: Patient,NotPresent [Unknown] - As per Instructions
--- NOTE | 2017-07-29 10:55 | GDS ---
[f rep st] DISCHARGE SUMMARY DISCHARGE DIAGNOSES: 1. Pneumonia, community-acquired, present on admission. 2. Acute encephalopathy. 3. Psoriatic arthritis. 4. History of sick sinus syndrome with pacer placement. 5. Hypertension. HISTORY OF PRESENT ILLNESS: Briefly, Paloma Antonio is an 87-year-old woman with psoriatic arthritis on methotrexate, CVA and hypertension who presented to the Emergency Room with altered mentation. In the Emergency Room, she had a chest x-ray which revealed a left lower lobe pneumonia. Blood cultures were performed which did not show any growth. She improved through her stay. Because she was confused on admission, a head CT was performed. This showed nothing acute. She has atrophy and white matter disease. In addition because of her pneumonia, there is concern she could be aspirating. She had a video esophagram with speech therapy performed that showed a normal exam. Today she will be discharged to [facility] for strengthening and then will return to home from there. HOSPITAL COURSE: 1. Pneumonia, markedly improved. She is on room air. 2. Acute encephalopathy, presumed to be due to the pneumonia. This is resolved. 3. Psoriatic arthritis. Her methotrexate was on hold. This can be resumed. 4. Sick sinus syndrome with pacer, stable. 5. Hypertension. Blood pressure is stable. CONDITION AT DISCHARGE: Stable. Blood pressure is 132/77, O2 saturations on room air 92%, respiratory rate 16, pulse is 60, temperature 36.9 Celsius. MEDICATIONS AT DISCHARGE: Please see the EMR. All of her home medications have been resumed to the best of my knowledge. Only new medication is Levaquin. DISCHARGE INSTRUCTIONS: 1. To be aware that Levaquin can cause tendinitis, especially in the Achilles tendon. 2. If she develops fever, chills, chest pain, or any confusion to return to the ER. TIME SPENT: Greater than 30 minutes discharging and coordinating care. /[id number]/MODL MTDD
--- NOTE | 2017-07-29 11:25 | ASMTCMCOM ---
CM Note CM Note Notes: Today Pt. has d/c order and ready to go. [facility] Pt. can sit in wheelchair and on room air. [facility] arranged transport for 12:00. Ritur communicated w/ Pt., RN and son, Norm regarding d/c plan. All in agreement. SWer sent d/c orders and meds via [employer]. RN calling report. Pt. d/c'ed to [facility] today. Date Signed: 07/29/2017 11:25 AM Electronically Signed By:Danielle Barba LCSW
--- NOTE | 2017-07-29 12:49 | ASDISCHSUM ---
Discharge Information Plan Status:SNF Medically Cleared to Leave: Discharge Date:07/29/2017 12:30 PM CM D/C Disposition:Halfway Facility ADT D/C Disposition:Halfway Facility Projected Discharge Date:07/29/2017 02:00 PM Transportation at D/C:Wheelchair Van Discharge Delay Reason: Follow-Up Date:07/29/2017 02:00 PM Discharge Slot: Final Diagnosis: Placement Information Referral Type:*Halfway/SNF Referral ID:[id number] Provider Name:[facility] Address 1:[address] Address 2: City:[place] Selection Factors: State:[place] Patient Contact Information Contact Name:ANNELIESE Relationship:Son Address: Work Phone: City:[place] Alternate Phone: [facility] Code:[place] Email: Financial Information Financial Class: Primary Plan Desc:MEDICARE INPATIENT Primary Plan Number:[id number] Secondary Plan Desc: OUT OF STATE [facility] Secondary Plan Number:[id number] Assessment Information [facility] CM Progress Note CM Note CM Note Notes: Pt lives with dtr who is battling ovarian ca, may need SNF per PT/OT recommendations, CM to speak w/pt in am. Date Signed: 07/27/2017 05:15 PM Electronically Signed By:Namrata Olivas RN [facility] CM Progress Note CM Note CM Note Notes: Today Pt. has d/c order and ready to go. [facility]. Pt. can sit in wheelchair and on room air. [facility] arranged transport for 12:00. SWer communicated w/ Pt., RN and son, Norm regarding d/c plan. All in agreement. SWer sent d/c orders and meds via [employer]. RN calling report. Pt. d/c'ed to [facility] today. Date Signed: 07/29/2017 11:25 AM Electronically Signed By:Danielle Barba LCSW Intervention Information
== END 2017-07-29 12:30 | DRG 193 ==
LOC: EDUNIT# → F3E 17:50
PROVIDERS: ADMIT Hospitalist; ATTEND Internal Medicine
DX: J18.9 Pneumonia, unspecified organism (principal); G93.40 Encephalopathy, unspecified; I10 Essential (primary) hypertension; Z95.0 Presence of cardiac pacemaker; L40.50 Arthropathic psoriasis, unspecified; I49.5 Sick sinus syndrome; Z86.73 Personal history of transient ischemic attack (TIA), and cerebral infarction without residual deficits; Z87.440 Personal history of urinary (tract) infections
CPT/HCPCS: 92610-GN; 92611-GN; 96374; 97110-GP; 97116-GP; 97162-GP; 97166-GO; 97530-GO; 97530-GP; G8978-GP-CL; G8979-GP-CJ; G8987-GO-CL; G8988-GO-CL; G8996-GN-CH; G8996-GN-CI; G8997-GN-CH; G8998-GN-CH; J1956

== ENCOUNTER 2018-11-12 14:05 | Inpatient (IN) | payer OTHER ==
--- NOTE | 2018-11-12 14:39 | EDPHY ---
H & P Time Seen by Provider: 11/12/18 14:39 HPI/ROS: CHIEF COMPLAINT: Cough and shortness of breath HISTORY OF PRESENT ILLNESS: Patient started having a little bit of a cough about a week ago but then it really got worse and was pretty wet for the last 3 days. Associated with difficulty catching her breath and clear sputum which changed to yellow today. Also associated with a fever to 100 degrees F 2 nights ago. Worse with exertion, symptoms moderate to severe now. Uses CPAP at home. REVIEW OF SYSTEMS: Eye: no change in vision ENT: no sore throat Cardiac: no chest pain or syncope Pulmonary: HPI Abdomen: no vomiting, diarrhea, abdominal pain Musculoskeletal: Bilateral knee pain from arthritis, unchanged Skin: Bruise on her right knee and thigh from injuring it 2 days ago. Neuro: no headache Constitutional: HPI : no urinary symptoms A comprehensive 10 point review of systems is otherwise negative aside from elements mentioned in the history of present illness. PAST MEDICAL HISTORY: Includes TIA, pacemaker, psoriatic arthritis and lupus, cholecystectomy and appendectomy, history of UTI and pneumonia Social history: Patient is here with son and caregiver. General Appearance: Alert and conversant, cooperative. Eyes: No scleral icterus. ENT, Mouth: Normal mucous membranes. Normal pharynx and no angioedema. Respiratory: Decreased breath sounds bilaterally, saturation 88%. Cardiovascular: Regular rate and rhythm. Gastrointestinal: Abdomen is soft and non tender. Neurological: Alert, face symmetric, normal motor and sensory in extremities. Skin: Warm and dry, no rashes. Musculoskeletal: Patient is wearing braces on both knees. Psychiatric: Not agitated. Emergency Department course/MDM: Hypoxic with worsening cough. Plan for chest x-ray, supplemental oxygen, EKG, blood cultures, influenza. Admission for further evaluation. Oxygen applied, saturation mid 90s on nasal cannula 2 L. D-dimer noted to be elevated, but with RSV-positive I think pulmonary embolism is not likely the cause for her symptoms. Does not have evidence in the emergency department of acute bacterial infection. Smoking Status: Never smoked Constitutional: Initial Vital Signs Temperature (C) 37.0 C 11/12/18 14:22 Heart Rate 64 11/12/18 14:22 Respiratory Rate 18 11/12/18 14:22 Blood Pressure 149/78 H 11/12/18 14:22 O2 Sat (%) 88 L 11/12/18 14:22 O2 Delivery Mode Room Air O2 (L/minute) 2 Allergies/Adverse Reactions: Sulfa (Sulfonamide Antibiotics) Allergy (Severe, Verified 11/12/18 14:22) Rash morphine Allergy (Mild, Verified 11/12/18 14:22) NAUSEA Home Medications: Medication Instructions Recorded Folic Acid [Folic Acid 1 MG (*)] 1 mg PO DAILY 02/26/15 Methotrexate Sodium [Rheumatrex] 10 mg PO WE@02/26/15 [place]-3 Fatty Acids [Fish Oil 1000 2,000 mg PO DAILY 02/26/15 mg (*)] Cholecalciferol Vit D3 [Vitamin D3 4,000 units PO DAILY 10/04/16 (*)] Atorvastatin Calcium [Lipitor 10 10 mg PO DAILY 11/03/16 mg (*)] Hydrocodone/APAP 5/325 [[place] 1 each PO BID 11/03/16 5/325 (*)] Aspirin/Dipyridamole 25/200 1 each PO BID 07/26/17 [Aggrenox] Lisinopril [Zestril 40 mg (*)] 40 mg PO DAILY 07/26/17 amLODIPine BESYLATE [Norvasc 5 mg 5 mg PO DAILY 07/26/17 (*)] Escitalopram Oxalate [Lexapro] 10 mg PO DAILY 11/12/18 Herbals/Supplements -Info Only 1 ea PO DAILY 11/12/18 Hydrocodone/APAP 5/325 [[place] 1 each PO DAILY PRN 11/12/18 5/325 (*)] Ibuprofen [Motrin (*)] 400 mg PO BID PRN 11/12/18 Metoprolol Tartrate [Lopressor 25 25 mg PO BID 11/12/18 mg (*)] Zolpidem Tartrate [Ambien 5MG (*)] 5 mg PO HS PRN 11/12/18 Medical Decision Making - Diagnostics EKG Interpretation: 12-lead EKG interpreted by me; official reading is in computer system. My interpretation is atrial pacing with possible previous inferior and anterior infarct. Imaging Results: Imaging Impressions Chest X-Ray 11/12/18 14:50 Impression: Slight increase in cardiomegaly with no acute findings. Imaging: I viewed and interpreted images myself Differential Diagnosis: Differential diagnosis considered for shortness of breath including but not limited to pulmonary infectious process, COPD, asthma, pulmonary embolus and congestive heart failure. Consult/Admit Bed Type: [place] [id number] - Data Points Laboratory Results: Laboratory Results 11/12/18 15:20 11/12/18 15:20 11/12/18 11/12/18 11/12/18 15:20 15:20 15:20 WBC 7.62 10^3/uL 10^3/uL (3.80-9.50) RBC 3.42 10^6/uL L 10^6/uL (4.18-5.33) Hgb 12.0 g/dL L g/dL (12.6-16.3) Hct 36.1 % L % (38.0-47.0) MCV 105.6 fL H fL (81.5-99.8) MCH 35.1 pg H pg (27.9-34.1) MCHC 33.2 g/dL g/dL (32.4-36.7) RDW 14.4 % % (11.5-15.2) Plt Count 205 10^3/uL 10^3/uL (150-400) MPV 11.0 fL fL (8.7-11.7) Neut % (Auto) 61.4 % % (39.3-74.2) Lymph % (Auto) 14.6 % L % (15.0-45.0) [place] % (Auto) 16.9 % H % (4.5-13.0) Eos % (Auto) 5.2 % % (0.6-7.6) Baso % (Auto) 0.7 % % (0.3-1.7) Nucleat RBC Rel Count 0.0 % % (0.0-0.2) Absolute Neuts (auto) 4.68 10^3/uL 10^3/uL (1.70-6.50) Absolute Lymphs (auto) 1.11 10^3/uL 10^3/uL (1.00-3.00) Absolute Monos (auto) 1.29 10^3/uL H 10^3/uL (0.30-0.80) Absolute Eos (auto) 0.40 10^3/uL 10^3/uL (0.03-0.40) Absolute Basos (auto) 0.05 10^3/uL 10^3/uL (0.02-0.10) Absolute Nucleated RBC 0.00 10^3/uL 10^3/uL (0-0.01) Immature Gran % 1.2 % H % (0.0-1.1) Immature Gran # 0.09 10^3/uL 10^3/uL (0.00-0.10) PT 13.2 SEC SEC (12.0-15.0) INR 1.04 (0.83-1.16) APTT 35.3 SEC SEC (23.0-38.0) D-Dimer 3.47 ug/mLFEU H ug/mLFEU (0.00-0.50) VBG Lactic Acid Sodium 141 mEq/L mEq/L (135-145) Potassium 4.8 mEq/L mEq/L (3.5-5.2) Chloride 106 mEq/L mEq/L (97-110) Carbon Dioxide 26 mEq/l mEq/l (22-31) Anion Gap 9 mEq/L mEq/L (6-14) BUN 17 mg/dL mg/dL (7-23) Creatinine 0.7 mg/dL mg/dL (0.6-1.0) Estimated GFR > 60 Glucose 93 mg/dL mg/dL (70-100) Calcium 10.2 mg/dL mg/dL (8.5-10.4) Total Bilirubin 0.4 mg/dL mg/dL (0.1-1.4) NT-Pro-B Natriuret Pep 472 pg/mL H pg/mL (0-450) Nasal Influenza A PCR Nasal Influenza B PCR RSV (PCR) 11/12/18 11/12/18 15:20 15:10 WBC RBC Hgb Hct MCV MCH MCHC RDW Plt Count MPV Neut % (Auto) Lymph % (Auto) [place] % (Auto) Eos % (Auto) Baso % (Auto) Nucleat RBC Rel Count Absolute Neuts (auto) Absolute Lymphs (auto) Absolute Monos (auto) Absolute Eos (auto) Absolute Basos (auto) Absolute Nucleated RBC Immature Gran % Immature Gran # PT INR APTT D-Dimer VBG Lactic Acid 1.8 mmol/L mmol/L (0.7-2.1) Sodium Potassium Chloride Carbon Dioxide Anion Gap BUN Creatinine Estimated GFR Glucose Calcium Total Bilirubin NT-Pro-B Natriuret Pep Nasal Influenza A PCR NEGATIVE FOR FLU A (NEGATIVE) Nasal Influenza B PCR NEGATIVE FOR FLU B (NEGATIVE) RSV (PCR) RSV DETECTED H (NEGATIVE) Departure - Departure Disposition: [facility] Inpatient Acute Clinical Impression: RSV (respiratory syncytial virus infection) Condition: Fair
[2018-11-12 15:40] LABS: PLATELET COUNT 205 10^3/uL (150-400)
[2018-11-12 15:47] LABS: INR 1.04 (0.83-1.16); PROTIME(PATIENT) 13.2 SEC (12.0-15.0)
--- NOTE | 2018-11-12 16:07 | CPEKG ---
Test Reason : OPEN Blood Pressure : / mmHG Vent. Rate : 060 BPM Atrial Rate : 000 BPM P-R Int : 206 ms QRS Dur : 089 ms QT Int : 473 ms P-R-T Axes : 000 -33 121 degrees QTc Int : 473 ms Atrial-paced rhythm Inferior infarct, old Anterior infarct, old Lateral leads are also involved Confirmed by Pham Lopez ([id number]) on 11/12/2018 4:06:42 PM Referred By: PHAM LOPEZ Confirmed By:Pham Lopez
[2018-11-12] MEDS ORDERED: HYDROCODONE/APAP 5/325 TAB PO PRN (16:48)
[2018-11-12] MEDS ORDERED: ACETAMINOPHEN 325 MG TAB PO PRN (16:48)
[2018-11-12] MEDS ORDERED: PROMETHAZINE HCL 25 MG/ML INJ IVP PRN (16:48)
[2018-11-12] MEDS ORDERED: oxyCODONE IR 5 MG TAB PO PRN (16:48)
[2018-11-12] MEDS ORDERED: HYDROmorphONE/DILAUDID 1 MG/ML INJ IVP PRN (16:48)
[2018-11-12] MEDS ORDERED: ONDANSETRON 4 MG/2 ML VIAL IVP PRN (16:48)
[2018-11-12] MEDS ORDERED: ONDANSETRON DISINTEGRATING 4 MG TAB PO PRN (16:48)
[2018-11-12] MEDS ORDERED: ZOLPIDEM TARTRATE 5 MG TAB PO PRN (16:51)
[2018-11-12] MEDS ORDERED: IBUPROFEN 200 MG TAB PO PRN (16:51)
--- NOTE | 2018-11-12 16:53 | PDGENHP ---
History and Physical - Chief Complaint cough and hypoxia - History of Present Illness 88 yo F with PMH that includes CVA with resultant ataxia, currently wheelchair bound, as well as psoriatic arthritis presenting with complaints of cough for about 1 week and decreased o2 sats at home. She lives independently, near to her son's home, and has 24 hour caregivers in the house. She is accompanied here by her caregiver and her son. They note that along with a persistent cough she has had issues with wheezing which is not normal for her, her oxygen has been in the low to mid 80s at home when she generally runs in the mid to high 90s on RA. 2 weeks ago she was treated for a presumptive UTI with a short course of cipro, they note that patient has frequent UTIs and currently they will perform a urine dip and if looks c/w UTI she will take a short course of cipro that she has a standing order for--this has largely been able to avoid frequent hospitalizations for UTI. She did have a recent fall out of bed, they require a Sera lift to transfer her, and apparently while attempting to do that she slipped from the bed to the floor. She does not have significant pain related to that, she does have some bruising on her right thigh/hip. History Information - Allergies/Home Medication List Allergies/Adverse Reactions: Sulfa (Sulfonamide Antibiotics) Allergy (Severe, Verified 11/12/18 14:22) Rash morphine Allergy (Mild, Verified 11/12/18 14:22) NAUSEA Home Medications: Folic Acid [Folic Acid 1 MG (*)] 1 mg PO DAILY 02/26/15 [Last Taken 07/26/17] Methotrexate Sodium [Rheumatrex] 10 mg PO WE@02/26/15 [Last Taken 11/07/18] [place]-3 Fatty Acids [Fish Oil 1000 mg (*)] 2,000 mg PO DAILY 02/26/15 [Last Taken 07/26/17] Cholecalciferol Vit D3 [Vitamin D3 (*)] 4,000 units PO DAILY 10/04/16 [Last Taken 11/12/18] Atorvastatin Calcium [Lipitor 10 mg (*)] 10 mg PO DAILY 11/03/16 [Last Taken ] Hydrocodone/APAP 5/325 [[place] 5/325 (*)] 1 each PO BID 11/03/16 [Last Taken 09:00] Aspirin/Dipyridamole 25/200 [Aggrenox] 1 each PO BID 07/26/17 [Last Taken 09:00] Lisinopril [Zestril 40 mg (*)] 40 mg PO DAILY 07/26/17 [Last Taken 11/12/18] amLODIPine BESYLATE [Norvasc 5 mg (*)] 5 mg PO DAILY 07/26/17 [Last Taken 09:00] Escitalopram Oxalate [Lexapro] 10 mg PO DAILY 11/12/18 [Last Taken 11/12/18] Herbals/Supplements -Info Only 1 ea PO DAILY 11/12/18 [Last Taken Unknown] Hydrocodone/APAP 5/325 [[place] 5/325 (*)] 1 each PO DAILY PRN 11/12/18 [Last Taken Unknown] Ibuprofen [Motrin (*)] 400 mg PO BID PRN 11/12/18 [Last Taken Unknown] Metoprolol Tartrate [Lopressor 25 mg (*)] 25 mg PO BID 11/12/18 [Last Taken 09:00] Zolpidem Tartrate [Ambien 5MG (*)] 5 mg PO HS PRN 11/12/18 [Last Taken Unknown] I have personally reviewed and updated: family history, medical history, social history, surgical history - Past Medical History CVA (Cerebellar with resultant ataxia), hypertension Additional medical history: Depression. Psoriatic arthritis. Osteoarthritis. Macular degeneration. GERD. Sick sinus syndrome. Carotid stenosis, 50-75% bilaterally - Surgical History Reports: appendectomy, cholecystectomy Additional surgical history: Permanent pacemaker - Family History Positive for: non-pertinent Additional family history: Patient denies any recent sick family contacts - Social History Smoking Status: Never smoked Alcohol Use: None Drug Use: None Additional social history: She lives independently near to her son's home with 24 hour caregivers. She is wheelchair bound, requires Sera lift for transfers Review of Systems Review of Systems: ROS: 10pt was reviewed & negative except for what was stated in HPI & below Physical Exam Physical Exam: Temp Pulse Resp BP Pulse Ox 37.0 C 64 18 149/78 H 98 11/12/18 14:22 11/12/18 14:22 11/12/18 14:22 11/12/18 14:22 11/12/18 14:27 Constitutional: no apparent distress, appears nourished Eyes: PERRL, anicteric sclera Ears, Nose, Mouth, Throat: moist mucous membranes, poor dentition Cardiovascular: regular rate and rhythym, no murmur, rub, or gallop, edema Respiratory: reduced air movement, expiratory wheeze, respiratory distress Gastrointestinal: normoactive bowel sounds, soft, non-tender abdomen Genitourinary: no bladder tenderness Skin: warm, normal color Musculoskeletal: no muscle tenderness Neurologic: AAOx3 Psychiatric: interacting appropriately, not anxious, not encephalopathic Lab Data & Imaging Review 11/12/18 15:20 11/12/18 15:20 WBC 7.62 10^3/uL (3.80-9.50) 11/12/18 15:20 RBC 3.42 10^6/uL (4.18-5.33) L 11/12/18 15:20 Hgb 12.0 g/dL (12.6-16.3) L 11/12/18 15:20 Hct 36.1 % (38.0-47.0) L 11/12/18 15:20 MCV 105.6 fL (81.5-99.8) H 11/12/18 15:20 MCH 35.1 pg (27.9-34.1) H 11/12/18 15:20 MCHC 33.2 g/dL (32.4-36.7) 11/12/18 15:20 RDW 14.4 % (11.5-15.2) 11/12/18 15:20 Plt Count 205 10^3/uL (150-400) 11/12/18 15:20 MPV 11.0 fL (8.7-11.7) 11/12/18 15:20 Neut % (Auto) 61.4 % (39.3-74.2) 11/12/18 15:20 Lymph % (Auto) 14.6 % (15.0-45.0) L 11/12/18 15:20 [place] % (Auto) 16.9 % (4.5-13.0) H 11/12/18 15:20 Eos % (Auto) 5.2 % (0.6-7.6) 11/12/18 15:20 Baso % (Auto) 0.7 % (0.3-1.7) 11/12/18 15:20 Nucleat RBC Rel Count 0.0 % (0.0-0.2) 11/12/18 15:20 Absolute Neuts (auto) 4.68 10^3/uL (1.70-6.50) 11/12/18 15:20 Absolute Lymphs (auto) 1.11 10^3/uL (1.00-3.00) 11/12/18 15:20 Absolute Monos (auto) 1.29 10^3/uL (0.30-0.80) H 11/12/18 15:20 Absolute Eos (auto) 0.40 10^3/uL (0.03-0.40) 11/12/18 15:20 Absolute Basos (auto) 0.05 10^3/uL (0.02-0.10) 11/12/18 15:20 Absolute Nucleated RBC 0.00 10^3/uL (0-0.01) 11/12/18 15:20 Immature Gran % 1.2 % (0.0-1.1) H 11/12/18 15:20 Immature Gran # 0.09 10^3/uL (0.00-0.10) 11/12/18 15:20 PT 13.2 SEC (12.0-15.0) 11/12/18 15:20 INR 1.04 (0.83-1.16) 11/12/18 15:20 APTT 35.3 SEC (23.0-38.0) 11/12/18 15:20 D-Dimer 3.47 ug/mLFEU (0.00-0.50) H 11/12/18 15:20 VBG Lactic Acid 1.8 mmol/L (0.7-2.1) 11/12/18 15:20 Sodium 141 mEq/L (135-145) 11/12/18 15:20 Potassium 4.8 mEq/L (3.5-5.2) 11/12/18 15:20 Chloride 106 mEq/L (97-110) 11/12/18 15:20 Carbon Dioxide 26 mEq/l (22-31) 11/12/18 15:20 Anion Gap 9 mEq/L (6-14) 11/12/18 15:20 BUN 17 mg/dL (7-23) 11/12/18 15:20 Creatinine 0.7 mg/dL (0.6-1.0) 11/12/18 15:20 Estimated GFR > 60 11/12/18 15:20 Glucose 93 mg/dL (70-100) 11/12/18 15:20 Calcium 10.2 mg/dL (8.5-10.4) 11/12/18 15:20 Total Bilirubin 0.4 mg/dL (0.1-1.4) 11/12/18 15:20 NT-Pro-B Natriuret Pep 472 pg/mL (0-450) H 11/12/18 15:20 Nasal Influenza A PCR NEGATIVE FOR FLU A (NEGATIVE) 11/12/18 15:10 Nasal Influenza B PCR NEGATIVE FOR FLU B (NEGATIVE) 11/12/18 15:10 RSV (PCR) RSV DETECTED (NEGATIVE) H 11/12/18 15:10 Visualized and Interpreted Chest x-ray results: Yes Chest X-Ray results: no infiltrate Visualized and Interpreted EKG results: Yes EKG Interpretation: Positive for: Q waves EKG additional interpertation: a paced rhythm Assessment & Plan Assessment: 88 yo F with PMH of CVA and resultant ataxia now wheelchair bound presenting with 1 week of cough and sob found to have RSV infection # acute hypoxic respiratory failure: in setting of RSV infection and e/o RAD with diffuse wheezing noted on exam, improved some s/p breathing treatments. She generally does not use supplemental o2, currently with sats of 88% on RA with baseline in the mid 90s on RA. No e/o pna on cxr, will repeat in am. Will continue nebs and IS as well as cough and deep breathing given her immobility. # RSV infection: with sob/wheezing as above, supportive care as above, repeat cxr in am # reactive airways exacerbation: without a hx of asthma or copd but wheezing in the setting of RSV infection, duonebs/albuterol prn, do not think steroids needed at this time # CVA: with resultant ataxia and now wheelchair bound, needs sera for transfer , has 24 hour home care, continue aggrenox/statin # psoriatic arthritis: continue mtx # HTN: continue metoprolol/lisinopril # SSS: with pacer, a paced rhythm # macrocytic anemia: mild anemia, MCV elevated persistently, currently 105.6, b12 and tsh have been normal in the past, defer to op w/u # DNR--has MOST form on file with further details, son Norm is MDPOA # observation status, may be ready for dc in am if breathing continues to improve Patient new to my care. Old records reviewed and summarized as above. Care plan reviewed with ER doctor, further hx obtained from patients son present at bedside.
[2018-11-12] MEDS ORDERED: ALBUTEROL 3 ML DEYVIAL IH PRN (18:55)
[2018-11-12] MEDS ORDERED: IOPAMIDOL (ISOVUE 370) 100 ML BTL IV ONE (20:56)
[2018-11-12] MEDS: HYDROCODONE/APAP 5/325 TAB PO SCH (21:02)
[2018-11-12] MEDS: METOPROLOL TARTRATE 25 MG TAB PO SCH (21:04)
[2018-11-12] MEDS: ASPIRIN/DIPYRIDAMOLE CAPSULE PO SCH (21:04)
[2018-11-12] MEDS: ENOXAPARIN 100 MG/ML SYR SC SCH (23:08)
[2018-11-13] MEDS: IPRATROPIUM/ALBUTEROL 3 ML DEYVIAL IH SCH ×5 (00:02→21:23)
[2018-11-13 05:47] LABS: PLATELET COUNT 163 10^3/uL (150-400)
[2018-11-13] MEDS: ATORVASTATIN CALCIUM 10 MG TAB PO SCH (08:50)
[2018-11-13] MEDS: ASPIRIN/DIPYRIDAMOLE CAPSULE PO SCH (08:50)
[2018-11-13] MEDS: amLODIPine BESYLATE 5 MG TAB PO SCH (08:50)
[2018-11-13] MEDS: CHOLECALCIFEROL VIT D3 2,000 UNITS TAB/CAP PO SCH (08:51)
[2018-11-13] MEDS: ESCITALOPRAM OXALATE 10 MG TAB PO SCH (08:51)
[2018-11-13] MEDS: ENOXAPARIN 100 MG/ML SYR SC SCH ×2 (08:51→20:46)
[2018-11-13] MEDS: HYDROCODONE/APAP 5/325 TAB PO SCH ×2 (08:52→20:47)
[2018-11-13] MEDS: OMEGA-3 FATTY ACIDS 1,000 MG CAP PO SCH (08:52)
[2018-11-13] MEDS: LISINOPRIL 40 MG TAB PO SCH (08:52)
[2018-11-13] MEDS: METOPROLOL TARTRATE 25 MG TAB PO SCH ×2 (08:52→20:48)
[2018-11-13] MEDS: FOLIC ACID 1 MG TAB PO SCH (08:53)
--- NOTE | 2018-11-13 14:26 | HOSPPROG ---
Hospitalist Progress Note Assessment/Plan: 88 yo F with PMH of CVA and resultant ataxia now wheelchair bound presenting with 1 week of cough and sob found to have RSV infection. First encounter, chart reviewed. D/W PCP. # acute hypoxic respiratory failure: -in setting of RSV infection and e/o RAD -she does not use supplemental o2 -No e/o pna on cxr -Will continue nebs and IS as well as cough and deep breathing given her immobility. # RSV infection: -with sob/wheezing as above -supportive care as above -repeat cxr, personally reviewed, mild CHF #PE -RLL -start eliquis -DC aggrenox # reactive airways exacerbation: -without a hx of asthma or copd -duonebs/albuterol prn # CVA: -with resultant ataxia and now wheelchair bound -needs santana for transfer -has 24 hour home care -continue statin -DC Aggrenox # psoriatic arthritis: -continue mtx # HTN: -continue metoprolol/lisinopril # SSS: -with pacer, a paced rhythm # macrocytic anemia: -mild anemia, MCV elevated persistently -currently 105.6, b12 and tsh have been normal in the past, defer to op w/u # DNR--has MOST form on file with further details, son Norm is MDPOA # Dispo, -change to inpt status -requires further support in hospital setting -cont supplemental O2 -Given viral illness, AHRF and PE, will make her IP status Subjective: Feeling a bit better. Still SOB and coughing. Objective: Vital Signs Temp Pulse Resp BP Pulse Ox 36.6 C 60 18 100/55 L 95 11/13/18 08:00 11/13/18 11:53 11/13/18 11:53 11/13/18 11:53 11/13/18 11:53 Laboratory Results 11/13/18 05:00 11/13/18 05:00 11/12/18 11/13/18 11/14/18 05:59 05:59 05:59 Intake Total 200 Output Total 400 Balance -200 PT 13.2 SEC (12.0-15.0) 11/12/18 15:20 INR 1.04 (0.83-1.16) 11/12/18 15:20 - Physical Exam Constitutional: appears nourished, chronically ill appearing, obese Eyes: PERRL, anicteric sclera, EOMI Ears, Nose, Mouth, Throat: moist mucous membranes, hearing normal, ears appear normal Cardiovascular: regular rate and rhythym, No JVD, No edema Respiratory: no respiratory distress, reduced air movement, expiratory wheeze Gastrointestinal: normoactive bowel sounds, No tenderness, No ascites Skin: warm, normal color, No mottled Musculoskeletal: no joint effusions, pain with ROM, generalized weakness Neurologic: AAOx3 Psychiatric: interacting appropriately, not anxious, not encephalopathic, thought process linear ICD10 Worksheet Patient Problems: Problems Problem Status Onset RSV (respiratory syncytial virus infection) Acute Ischemic stroke Acute Leg weakness, bilateral Acute Pneumonia Acute UTI (urinary tract infection) Acute chronic disease mgmt/transitional care Acute
[2018-11-13] MEDS: APIXABAN 5 MG TAB PO SCH ×2 (15:11→20:48)
--- NOTE | 2018-11-13 17:39 | ASMTCMCOM ---
CM Note CM Note Notes: Pt's Chart reviewed. 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 Hx of CVA, Asthma, COPD, Ataxia and is W/C bound. Pt is a DNR with forms on file and Lives Independently with caregivers 20/03 in a home near her son [facility] ( [facility] CM available for needs. PLAN: TBD Date Signed: 11/13/2018 05:39 PM Electronically Signed By:Giselle Moran
[2018-11-13] MEDS: BENZONATATE 100 MG CAP PO PRN (20:47)
[2018-11-14] MEDS: IPRATROPIUM/ALBUTEROL 3 ML DEYVIAL IH SCH ×3 (05:34→17:06)
--- NOTE | 2018-11-14 07:47 | PDMN ---
Medical Necessity Medical necessity: Change to IP, as of 11/12/18, per MD & MCG [id number]; los >2 mn for ongoing management of PE w/acute hypoxic respiratory failure in setting of RSV infection & reactive airway exacerbation; requiring further monitoring, med management & respiratory supportive care; hx CVA w/resultant ataxia, wc bound, SSS
--- NOTE | 2018-11-14 08:34 | HOSPPROG ---
Hospitalist Progress Note Assessment/Plan: 88 yo F with PMH of CVA and resultant ataxia now wheelchair bound presenting with 1 week of cough and sob found to have RSV infection. Also she has a PE. First encounter, chart reviewed. # acute hypoxic respiratory failure -multifactorial, PE, RSV and reactive airway disease -reviewed chest x ray, no pna, mild CHF -will get an echo, evaluate for diastolic or systolic dysfunction, + murmur noted today *severe coughing bouts -Robitussin and Tessalon Perls *RSV infection -supportive care *PE -RLL -Eliquis (dc LMWH) -DC Aggrenox *epistaxis -will monitor today to make sure she has no increase bleeding w being started on OAC * CVA -resultant ataxia -wheelchair bound -has 24 hour home care -continue statin -DC Aggrenox *Morbid obesity -BMI of 42 # psoriatic arthritis -methotrexate * HTN -continue metoprolol/lisinopril * SSS -with pacer, a paced rhythm *macrocytic anemia -TSH and B12 have been stable in the past *plan: will get an echo to further evaluate her LV function, valves, etc. Subjective: Paloma is worn out from coughing Objective: Vital Signs Temp Pulse Resp BP Pulse Ox 36.9 C 63 20 127/68 H 94 11/14/18 03:38 11/14/18 05:35 11/14/18 05:35 11/14/18 03:38 11/14/18 05:35 Laboratory Results 11/13/18 05:00 11/13/18 05:00 11/13/18 11/14/18 11/15/18 05:59 05:59 05:59 Intake Total 200 1200 Output Total 400 1100 Balance -200 100 PT 13.2 SEC (12.0-15.0) 11/12/18 15:20 INR 1.04 (0.83-1.16) 11/12/18 15:20 - Physical Exam Constitutional: chronically ill appearing, obese, uncomfortable Eyes: PERRL Ears, Nose, Mouth, Throat: hearing normal Cardiovascular: regular rate and rhythym, systolic murmur (left sternal border) Respiratory: reduced air movement, rhonchi, No no respiratory distress ( increase wob, coughing most of the time I'm evaluating her) Gastrointestinal: normoactive bowel sounds Skin: warm Musculoskeletal: other (uses a santana to get oob) Neurologic: AAOx3 Psychiatric: interacting appropriately, not anxious, not encephalopathic ICD10 Worksheet Patient Problems: Problems Problem Status Onset RSV (respiratory syncytial virus infection) Acute Ischemic stroke Acute Leg weakness, bilateral Acute Pneumonia Acute UTI (urinary tract infection) Acute chronic disease mgmt/transitional care Acute
[2018-11-14] MEDS ORDERED: METHOTREXATE 2.5 MG TAB PO SCH (09:00)
[2018-11-14] MEDS: HYDROCODONE/APAP 5/325 TAB PO SCH ×2 (10:48→20:41)
[2018-11-14] MEDS: LISINOPRIL 40 MG TAB PO SCH (10:48)
[2018-11-14] MEDS: CHOLECALCIFEROL VIT D3 2,000 UNITS TAB/CAP PO SCH (10:48)
[2018-11-14] MEDS: OMEGA-3 FATTY ACIDS 1,000 MG CAP PO SCH (10:50)
[2018-11-14] MEDS: APIXABAN 5 MG TAB PO SCH ×2 (10:50→20:40)
[2018-11-14] MEDS: FOLIC ACID 1 MG TAB PO SCH (10:50)
[2018-11-14] MEDS: ESCITALOPRAM OXALATE 10 MG TAB PO SCH (10:51)
[2018-11-14] MEDS: ENOXAPARIN 100 MG/ML SYR SC SCH (10:51)
[2018-11-14] MEDS: ATORVASTATIN CALCIUM 10 MG TAB PO SCH (10:51)
[2018-11-14] MEDS: amLODIPine BESYLATE 5 MG TAB PO SCH (10:51)
[2018-11-14] MEDS: METOPROLOL TARTRATE 25 MG TAB PO SCH ×2 (10:52→20:41)
--- NOTE | 2018-11-14 10:58 | WOCRNPDOC ---
WOCRN Advanced Assessment Note - Skin Integrity Problem, Advanced Assess Buttock Dressing Type: Open to Air Skin Integrity Problem Comment: Patient sitting in bed with family present. Visualized entire buttocks with assist from PATRICE Ugalde. No pressure injury, skin breakdown nor skin issue noted. All tissue in buttocks blanchable and intact. Notified patient and educated patient on importance of varying position to prevent breakdown. Verenice ALVAREZ also in room. Wound care will sign off.
[2018-11-14] MEDS: BENZONATATE 100 MG CAP PO PRN (11:57)
[2018-11-14] MEDS: GUAIFENESIN/DM 10 ML UDCUP PO PRN ×2 (12:54→18:22)
--- NOTE | 2018-11-14 13:10 | ECHO ---
[email or web address] [address] [address] Main: [phone] Echocardiography Examination Transthoracic Name: DEMARCUS CONKLIN MR#: [id number] Study Date: 11/14/2018 Study Time: 11:06 AM Date of : 1930 Age: 88 year(s) Height: 160 cm (63 in.) Weight: 107.5 kg (237 lb.) BSA: 2.08 m2 Gender: Female Examination: Echo Contrast: Image Quality: Technically Difficult Rhythm: Normal sinus rhythm Heart Rate: 61 bpm BP: 122 mmHg/70 mmHg Indication: question heart failure -murmur Procedure Staff Referring Physician: Platform Beater: Alisa Puente [facility] Reading Physician: Zach Barron MD Requesting Provider: Ordering Physician: Pastora Hudson Indication: question heart failure -murmur Measurements Chambers AV/MV Label Value Normal Value Label Value Normal Value IVSd, 2D 1.2 cm (0.6cm - 1.1cm) AV PGmax 38 mmHg LVDd, 2D 4.1 cm (3.9cm - 5.3cm) AV PGmean 23 mmHg LVDs, 2D 2.7 cm (2.1cm - 4cm) AV Vmax 3.08 m/s LVEF, 2D 65 % (54% - 74%) KIRSTEN D (continuity eq. 1.2 cm2 LVEF, BP 63 % (55% - 70%) VTI) LVOT PGmean 2 mmHg MV A Vmax 0.93 m/s LVOT Vmean 0.76 m/s MV DT 239 ms LVOTd 2.1 cm (1.8cm - 2cm) MV E' lateral 0.03 m/s LVPWd, 2D 1 cm MV E' mean 0.02 m/s RVDd, 2D 4.4 cm (1.9cm - 3.8cm) MV E' septal 0.02 m/s TAPSE 2.5 cm MV E Vmax 0.74 m/s LAESV index, BP 35.1 ml/m2 MV E/A 0.8 RA Area 21.2 cm2 MV E/E' lateral 25.2 Additional Vessels MV E/E' mean 29.6 Label Value Normal Value MV E/E' septal 33.9 (0.45 - 1.25) AoAsc 3.7 cm TV/PV AoRoot, 2D 3.2 cm (1.4cm - 2.6cm) Label Value Normal Value RA Pressure 5 mmHg RVSP 39 mmHg Patient: DEMARCUS CONKLIN Study Date: 11/14/2018 Page 1 of 3 11:06 AM TR Pmax 34 mmHg TR Vmax 2.91 m/s RI End hathaway Sonny 1.11 cm/s PV PGmax 5 mmHg PV Vmax, Caliper 1.15 m/s (0.6m/s - 0.9m/s) Conclusions Left Ventricle: CONCLUSIONS:1)Normal LV size and systolic function with a LVEF of 63%.2)Mild concentric LVH with diastolic dysfunction noted.3)Mild bi-atrial enlargement noted.4)Pacer wires noted in right heart chambers.5)Mild to moderate with mild AI noted.6)Mild MR without MV prolapse.7)Mild TR with upper limits of normal PA pressures (PAS =39mmHg).8)Moderate PI noted.9)Mildly enlarged ascending thoracic aorta (3.7cm). Findings Left Ventricle: Left ventricle is normal in size. CONCLUSIONS: 1)Normal LV size and systolic function with a LVEF of 63%. 2)Mild concentric LVH with diastolic dysfunction noted. 3)Mild bi-atrial enlargement noted. 4)Pacer wires noted in right heart chambers. 5)Mild to moderate with mild AI noted. 6)Mild MR without MV prolapse. 7)Mild TR with upper limits of normal PA pressures (PAS =39mmHg). 8)Moderate PI noted. 9)Mildly enlarged ascending thoracic aorta (3.7cm). The ejection fraction, measured by Simpsons method, is 63 %. There is mild concentric left ventricular hypertrophy. There are no regional wall motion abnormalities. Grade II Diastolic Dysfunction. Right Ventricle: Mildly dilated right ventricle. Right ventricular wall thickness is normal. Right ventricular systolic function is normal. There is a pacing wire present in the right ventricle. Left Atrium: The left atrium is mildly dilated. IAS: Normal appearing atrial septum. Right Atrium: The right atrium is mildly dilated. Mitral Valve: Normal . Mild mitral regurgitation. No mitral valve stenosis. There is mild mitral thickening. Aortic Valve: Mild aortic regurgitation is present. There is mild to moderate aortic stenosis. Aortic leaflets exhibit moderate calcification. The aortic valve is probably trileaflet. Tricuspid Valve: Tricuspid valve leaflets are normal in appearance and function. Mild tricuspid regurgitation. No tricuspid valve stenosis. Right Ventricular systolic pressure is measured at 39 mmHg. Pulmonary artery pressure is mildly increased. Pulmonic Valve: Pulmonic valve is poorly visualized. Moderate pulmonic valve regurgitation is present. Aorta: The aortic root size in 2D measures 3.2 cm. The aortic root exhibits normal size. The ascending aorta measures 3.7 cm. The ascending aorta is borderline dilated. Aorta Measurements Patient: DEMARCUS CONKLIN Study Date: 11/14/2018 Page 2 of 3 11:06 AM AoRoot, 2D is 3.2 cm. IVC: The inferior vena cava is normal in size and course. Pericardium: A pericardial fat pad is present. No pericardial effusion. Exam Details Procedure Ordered: Echo Procedure Status: Routine study Image Quality: Technically Difficult Facility Location: Cardiac Echo 1 (No Signature Object) Patient: DEMARCUS CONKLIN Study Date: 11/14/2018 Page 3 of 3 11:06 AM [id number]
[2018-11-15] MEDS: IPRATROPIUM/ALBUTEROL 3 ML DEYVIAL IH SCH ×5 (03:20→21:23)
[2018-11-15] MEDS: ESCITALOPRAM OXALATE 10 MG TAB PO SCH (09:50)
[2018-11-15] MEDS: ATORVASTATIN CALCIUM 10 MG TAB PO SCH (09:50)
[2018-11-15] MEDS: APIXABAN 5 MG TAB PO SCH ×2 (09:50→20:35)
[2018-11-15] MEDS: HYDROCODONE/APAP 5/325 TAB PO SCH ×2 (09:50→20:59)
[2018-11-15] MEDS: OMEGA-3 FATTY ACIDS 1,000 MG CAP PO SCH (09:50)
[2018-11-15] MEDS: BENZONATATE 100 MG CAP PO PRN ×3 (09:50→20:34)
[2018-11-15] MEDS: CHOLECALCIFEROL VIT D3 2,000 UNITS TAB/CAP PO SCH (09:50)
[2018-11-15] MEDS: amLODIPine BESYLATE 5 MG TAB PO SCH (09:51)
[2018-11-15] MEDS: FOLIC ACID 1 MG TAB PO SCH (09:51)
[2018-11-15] MEDS: LISINOPRIL 40 MG TAB PO SCH (09:51)
[2018-11-15] MEDS: METOPROLOL TARTRATE 25 MG TAB PO SCH ×2 (09:51→20:35)
--- NOTE | 2018-11-15 12:49 | HOSPPROG ---
Hospitalist Progress Note Assessment/Plan: 88 yo F with PMH of CVA and resultant ataxia now wheelchair bound presenting with 1 week of cough and sob found to have RSV infection. Also she has a PE. # acute hypoxic respiratory failure -multifactorial, PE, RSV and reactive airway disease -reviewed chest x ray, no pna, mild CHF (will give a small dose of Lasix today) *severe coughing bouts -Robitussin and Tessalon Perls (better today) *RSV infection -supportive care *PE -RLL -Eliquis (dc LMWH) -DC Aggrenox *mild to moderate , mildly enlarged ascending aorta at 3.7 cm -will have her f/u w Dr Spear in the OP setting -has dilated atriums (sleep apnea, on CPAP) *epistaxis -resolved * CVA -resultant ataxia -wheelchair bound -has 24 hour home care -continue statin -DC Aggrenox *Morbid obesity -BMI of 42 # psoriatic arthritis -methotrexate * HTN -continue metoprolol/lisinopril * SSS -with pacer, a paced rhythm *morbid obesity w a BMI of 43 *macrocytic anemia -TSH and B12 have been stable in the past *plan: do a trial of low dose Lasix, encouraged her to get OOB today. Subjective: Paloma said she is finally feeling a bit better. Objective: Vital Signs Temp Pulse Resp BP Pulse Ox 36.8 C 60 18 116/88 H 95 11/15/18 08:00 11/15/18 11:53 11/15/18 11:53 11/15/18 11:53 11/15/18 11:53 Laboratory Results 11/13/18 05:00 11/13/18 05:00 11/14/18 11/15/18 11/16/18 05:59 05:59 05:59 Intake Total 1200 500 Output Total 1100 1300 500 Balance 100 -800 -500 PT 13.2 SEC (12.0-15.0) 11/12/18 15:20 INR 1.04 (0.83-1.16) 11/12/18 15:20 - Physical Exam Constitutional: not in pain, chronically ill appearing, obese Eyes: PERRL Ears, Nose, Mouth, Throat: hearing normal Cardiovascular: regular rate and rhythym, systolic murmur Respiratory: no respiratory distress, reduced air movement, other (loose cough) Gastrointestinal: normoactive bowel sounds, other (large and round) Skin: warm Musculoskeletal: other (bedridden) Neurologic: AAOx3 Psychiatric: interacting appropriately ICD10 Worksheet Patient Problems: Problems Problem Status Onset RSV (respiratory syncytial virus infection) Acute Ischemic stroke Acute Leg weakness, bilateral Acute Pneumonia Acute UTI (urinary tract infection) Acute chronic disease mgmt/transitional care Acute
[2018-11-15] MEDS ORDERED: FUROSEMIDE 20 MG/2 ML VIAL IVP ONE (12:57)
--- NOTE | 2018-11-15 14:47 | ASMTCMCOM ---
CM Note CM Note Notes: Spoke with Shauna, pt is current with [facility]. Met with pt and family, LATRINE CLEANER feels that pt should go to rehab, ordered PT/OT to eval. Pt does not want to go, CM w/f up in am. DC Plan: HC vs SNF Date Signed: 11/15/2018 02:46 PM Electronically Signed By:Namrata Olivas RN
[2018-11-16] MEDS: IPRATROPIUM/ALBUTEROL 3 ML DEYVIAL IH SCH ×4 (05:45→20:14)
[2018-11-16] MEDS: METOPROLOL TARTRATE 25 MG TAB PO SCH ×2 (08:18→20:38)
[2018-11-16] MEDS: ESCITALOPRAM OXALATE 10 MG TAB PO SCH (08:18)
[2018-11-16] MEDS: HYDROCODONE/APAP 5/325 TAB PO SCH ×2 (08:19→20:38)
[2018-11-16] MEDS: OMEGA-3 FATTY ACIDS 1,000 MG CAP PO SCH (08:19)
[2018-11-16] MEDS: LISINOPRIL 40 MG TAB PO SCH (08:19)
[2018-11-16] MEDS: FOLIC ACID 1 MG TAB PO SCH (08:19)
[2018-11-16] MEDS: APIXABAN 5 MG TAB PO SCH ×2 (08:20→20:38)
[2018-11-16] MEDS: ATORVASTATIN CALCIUM 10 MG TAB PO SCH (08:21)
[2018-11-16] MEDS: amLODIPine BESYLATE 5 MG TAB PO SCH (08:21)
[2018-11-16] MEDS: CHOLECALCIFEROL VIT D3 2,000 UNITS TAB/CAP PO SCH (08:23)
[2018-11-16] MEDS: guaiFENesin/CODEINE PHOS 10 ML UDCUP PO PRN ×2 (10:46→17:46)
[2018-11-16] MEDS: BENZONATATE 100 MG CAP PO PRN ×2 (10:47→17:46)
--- NOTE | 2018-11-16 12:19 | HOSPPROG ---
Hospitalist Progress Note Assessment/Plan: 88 yo F with PMH of CVA and resultant ataxia now wheelchair bound presenting with 1 week of cough and sob found to have RSV infection. Also she has a PE. # acute hypoxic respiratory failure -multifactorial, PE, RSV and reactive airway disease -reviewed chest x ray, no pna, mild CHF *severe coughing bouts -Robitussin and Tessalon Perls (better today) *RSV infection -supportive care *PE -RLL -Eliquis (dc LMWH) -DC Aggrenox *mild to moderate , mildly enlarged ascending aorta at 3.7 cm -will have her f/u w Dr Spear in the OP setting -has dilated atriums (sleep apnea, on CPAP) *diastolic heart failure -did well w low dose of Lasix, will continue *epistaxis -resolved * CVA -resultant ataxia -wheelchair bound -has 24 hour home care -continue statin -DC Aggrenox *Morbid obesity -BMI of 42 # psoriatic arthritis -methotrexate * HTN -continue metoprolol/lisinopril * SSS -with pacer, a paced rhythm *morbid obesity w a BMI of 43 *macrocytic anemia -TSH and B12 have been stable in the past *plan:Paloma is willing to go to a SNF, she is feeling better and realizes the benefit of rehab, cont lasix, have her f/u w Cards in the OP setting Subjective: Paloma is feeling overall better today. Objective: Vital Signs Temp Pulse Resp BP Pulse Ox 36.8 C 60 16 126/65 H 94 11/16/18 08:49 11/16/18 09:04 11/16/18 09:04 11/16/18 08:49 11/16/18 09:04 Laboratory Results 11/13/18 05:00 11/16/18 04:55 11/15/18 11/16/18 11/17/18 05:59 05:59 05:59 Intake Total 500 850 Output Total 1300 1900 Balance -800 -1050 PT 13.2 SEC (12.0-15.0) 11/12/18 15:20 INR 1.04 (0.83-1.16) 11/12/18 15:20 - Physical Exam Constitutional: appears nourished, chronically ill appearing, obese Eyes: PERRL Ears, Nose, Mouth, Throat: hearing normal Cardiovascular: regular rate and rhythym, systolic murmur Respiratory: no respiratory distress, reduced air movement, other (lung sounds much improved) Skin: warm Musculoskeletal: generalized weakness (2 person assist to get oob) Neurologic: AAOx3 Psychiatric: interacting appropriately ICD10 Worksheet Patient Problems: Problems Problem Status Onset RSV (respiratory syncytial virus infection) Acute Ischemic stroke Acute Leg weakness, bilateral Acute Pneumonia Acute UTI (urinary tract infection) Acute chronic disease mgmt/transitional care Acute
[2018-11-16] MEDS: FUROSEMIDE 20 MG TAB PO SCH (13:23)
--- NOTE | 2018-11-16 15:48 | ASMTCMCOM ---
CM Note CM Note Notes: Spoke w/CLEAN ROOM TECHNICIAN and met with pt, she agrees to SNF. Would like referral sent to [facility], and she has been accepted. DC Plan: SNF/[facility] Date Signed: 11/16/2018 03:48 PM Electronically Signed By:Namrata Olivas RN
[2018-11-17] MEDS: IPRATROPIUM/ALBUTEROL 3 ML DEYVIAL IH SCH ×2 (05:16→12:58)
--- NOTE | 2018-11-17 08:33 | HOSPPROG ---
Hospitalist Progress Note Assessment/Plan: 88 yo F with PMH of CVA and resultant ataxia now wheelchair bound presenting with 1 week of cough and sob found to have RSV infection. Also she has a PE. # acute hypoxic respiratory failure -multifactorial, PE, RSV and reactive airway disease -reviewed chest x ray, no pna, mild CHF *severe coughing bouts -Robitussin and Adeola Asher (better today) *RSV infection -supportive care *PE -RLL -Eliquis (dc LMWH) -DC Aggrenox *mild to moderate , mildly enlarged ascending aorta at 3.7 cm -will have her f/u w Dr Spear in the OP setting -has dilated atriums (sleep apnea, on CPAP) *diastolic heart failure -did well w low dose of Lasix, will continue *epistaxis -resolved * CVA -resultant ataxia -wheelchair bound -has 24 hour home care -continue statin -DC Aggrenox *Morbid obesity -BMI of 42 # psoriatic arthritis -methotrexate * HTN -continue metoprolol/lisinopril * SSS -with pacer, a paced rhythm *morbid obesity w a BMI of 43 *macrocytic anemia -TSH and B12 have been stable in the past *plan: SNF today Subjective: natasha is in better spirits today, she is fine to go to rehab Objective: Vital Signs Temp Pulse Resp BP Pulse Ox 36.5 C 60 19 148/74 H 92 11/17/18 07:47 11/17/18 07:47 11/17/18 07:47 11/17/18 07:47 11/17/18 07:47 Laboratory Results 11/13/18 05:00 11/16/18 04:55 11/16/18 11/17/18 11/18/18 05:59 05:59 05:59 Intake Total 850 750 Output Total 1900 325 Balance -1050 425 PT 13.2 SEC (12.0-15.0) 11/12/18 15:20 INR 1.04 (0.83-1.16) 11/12/18 15:20 - Physical Exam Constitutional: not in pain, chronically ill appearing, obese Eyes: PERRL Ears, Nose, Mouth, Throat: hearing normal Cardiovascular: systolic murmur Respiratory: no respiratory distress, reduced air movement, other (loose bronchial sounding cough) Skin: warm Musculoskeletal: generalized weakness (max assist to get oob) Neurologic: AAOx3 Psychiatric: interacting appropriately ICD10 Worksheet Patient Problems: Problems Problem Status Onset RSV (respiratory syncytial virus infection) Acute Ischemic stroke Acute Leg weakness, bilateral Acute Pneumonia Acute UTI (urinary tract infection) Acute chronic disease mgmt/transitional care Acute
[2018-11-17] MEDS: LISINOPRIL 40 MG TAB PO SCH (08:59)
[2018-11-17] MEDS: ESCITALOPRAM OXALATE 10 MG TAB PO SCH (09:00)
[2018-11-17] MEDS: amLODIPine BESYLATE 5 MG TAB PO SCH (09:00)
[2018-11-17] MEDS: FOLIC ACID 1 MG TAB PO SCH (09:00)
[2018-11-17] MEDS: FUROSEMIDE 20 MG TAB PO SCH (09:01)
[2018-11-17] MEDS: CHOLECALCIFEROL VIT D3 2,000 UNITS TAB/CAP PO SCH (09:01)
[2018-11-17] MEDS: METOPROLOL TARTRATE 25 MG TAB PO SCH (09:02)
[2018-11-17] MEDS: OMEGA-3 FATTY ACIDS 1,000 MG CAP PO SCH (09:02)
[2018-11-17] MEDS: APIXABAN 5 MG TAB PO SCH (09:02)
[2018-11-17] MEDS: ATORVASTATIN CALCIUM 10 MG TAB PO SCH (09:03)
[2018-11-17] MEDS: HYDROCODONE/APAP 5/325 TAB PO SCH (09:26)
[2018-11-17] MEDS: BENZONATATE 100 MG CAP PO PRN (09:26)
--- NOTE | 2018-11-17 09:59 | PDIAF ---
- Diagnosis Diagnosis: pulmonary emboli, RSV, weakness Code Status: Do Not Resuscitate - Medication Management Discharge Medications: electronically signed and located in the Home Medication List. PICC Care - Routine: N/A - Orders Services needed: Physical Therapy, Occupational Therapy Isolation Type: Contact Isolation, Droplet Isolation Diet Recommendation: no restrictions on diet Diet Texture: Regular Texture Diet Additional Instructions: patient to be on ELIQUIS 10 mg BID through 11/19 STARTING ON 11/20, DECREASE DOSE OF ELIQUIS TO 5 MG BID ON MORNING Aggrenox has been stopped due to being on Eliquis new medication for Paloma is Lasix she needs a follow up appt with cardiology in 1-2 weeks Ibuprofen has been stopped due to being on Eliquis - Labs/Radiology BMP Date: 11/22/18 (weekly) - Follow Up Care Current Providers and Referrals: Lee Ware MD [Primary Care Provider] - As per Instructions Lucien Spear MD [Medical Doctor] -
--- NOTE | 2018-11-17 10:22 | ASMTLACE ---
LACE Length of stay for Answers: 4-6 days current admission Acuity / Level of Answers: Yes Care: Did the patient have an inpatient admission? Comorbidities - select Answers: Cerebrovascular disease all that apply (CVA, TIA, aneurysms, vasc ular dementia) Opioid dependence / Chronic pain # of Emergency department Answers: 1-2 visits in the last 6 months Score: 13 Date Signed: 11/17/2018 10:22 AM Electronically Signed By:WILMAN Matthews
--- NOTE | 2018-11-17 10:26 | ASDISCHSUM ---
Discharge Information Plan Status:SNF Medically Cleared to Leave:11/17/2018 Discharge Date:11/17/2018 CM D/C Disposition:Long Term Facility ADT D/C Disposition:Long Term Facility Projected Discharge Date:11/17/2018 11:00 AM Transportation at D/C:Wheelchair Van Discharge Delay Reason: Follow-Up Date:11/17/2018 11:00 AM Discharge Slot: Final Diagnosis: Placement Information Referral Type:*Home Health Care Services Referral ID:[id number] Provider Name: Address 1: Phone Number: Address 2: Fax Number: City: Selection Factors: State: Referral Type:*Detention/SNF Referral ID:[id number] Provider Name:[facility] Address 1:[address] [place] [address] Address 2: City:[place] Selection Factors: State:[place] Patient Contact Information Contact Name:ANNELIESE Relationship:Son Address: Work Phone: City:[place] Alternate Phone: [facility]/Zip Code:[place] Email: Financial Information Financial Class:Medicare Primary Plan Desc:MEDICARE INPATIENT Primary Plan Number:[id number] Secondary Plan Desc:[facility] Secondary Plan Number:[id number] Assessment Information [facility] CM Progress Note CM Note CM Note Notes: Pt's Chart reviewed. 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 Hx of CVA, Asthma, COPD, Ataxia and is W/C bound. Pt is a DNR with forms on file and Lives Independently with caregivers 20/03 in a home near her son Domenic ( [place]). CM available for needs. PLAN: TBD Date Signed: 11/13/2018 05:39 PM Electronically Signed By:Giselle Moran LACE PATRICIA Length of stay for Answers: 4-6 days current admission Acuity / Level of Answers: Yes Care: Did the patient have an inpatient admission? Comorbidities - select Answers: Cerebrovascular disease all that apply (CVA, TIA, aneurysms, vasc ular dementia) Opioid dependence / Chronic pain # of Emergency department Answers: 1-2 visits in the last 6 months Score: 13 Date Signed: 11/17/2018 10:22 AM Electronically Signed By:WILMAN Matthews [facility] CM Progress Note CM Note CM Note Notes: Spoke with Shauna, pt is current with [facility]. Met with pt and family, ALEMITE OPERATOR feels that pt should go to rehab, ordered PT/OT to eval. Pt does not want to go, CM w/f up in am. DC Plan: HC vs SNF Date Signed: 11/15/2018 02:46 PM Electronically Signed By:Namrata Olivas RN [facility] CM Progress Note CM Note CM Note Notes: Spoke w/ALEMITE OPERATOR and met with pt, she agrees to SNF. Would like referral sent to [facility], and she has been accepted. DC Plan: SNF/[facility] Date Signed: 11/16/2018 03:48 PM Electronically Signed By:Namrata Bredehoeft, RN Intervention Information
[2018-11-17] MEDS ORDERED: BISACODYL 10 MG SUPP PR ONE (10:38)
[2018-11-17] MEDS ORDERED: BISACODYL 10 MG SUPP PR PRN (10:39)
[2018-11-17] MEDS ORDERED: MAGNESIUM HYDROXIDE 30 ML UDCUP PO PRN (10:39)
[2018-11-17] MEDS ORDERED: LACTULOSE 20 GM/30 ML UDCUP PO PRN (10:39)
--- NOTE | 2018-11-17 10:44 | GDS ---
[f rep st] DISCHARGE SUMMARY DISCHARGE DIAGNOSES: 1. Acute hypoxemic respiratory failure. 2. Respiratory syncytial virus infection with severe coughing bouts. 3. Pulmonary embolism. 4. Mild to moderate aortic stenosis with a mildly enlarging ascending aorta at 3.7 cm. 5. Diastolic heart failure. 6. Epistaxis. 7. Cerebrovascular accident with resultant ataxia. 8. Morbid obesity. 9. Psoriatic arthritis. 10. Hypertension. 11. Sick sinus syndrome. 12. Macrocytic anemia. HISTORY AND HOSPITAL COURSE: Briefly, this patient is an 88-year-old woman with a past medical histo ry of CVA and resultant ataxia now who presented to the emergency room with coughing. She was noted to have an RSV infection. In addition, a CTA was performed, which showed she has a pulmonary embolus . She was given supportive management for her RSV. She has been slow to improve. She is markedly b vern today. She is also on Eliquis for treatment of her PE. HOSPITAL COURSE PER PROBLEM: 1. Acute hypoxemic respiratory failure. This is multifactorial. She had some mild congestive heart failure, as well as RSV and PE. This has resolved. She is on room air. 2. RSV infection with severe coughing bouts. She is doing better with Tessalon Perles and Robitussi n. 3. PE. This is in the right lower lung. She is on Eliquis. Her Aggrenox has been discontinued due to high risk of bleeding. 4. Mild to moderate with a mildly enlarging ascending aorta at 3.7 cm. I will have her follow up with Dr. Spear in the outpatient setting. I have added low-dose Lasix with good results. 5. Diastolic heart failure. I have continued with her home medications as well as Lasix. 6. Epistaxis, resolved. 7. CVA. She is on statin therapy. Her Aggrenox was discontinued because she will be on Eliquis for the PE. 8. Morbid obesity. She has a BMI of 42. 9. Psoriatic arthritis. She is on methotrexate. 10. Hypertension, on metoprolol and lisinopril. 11. Sick sinus syndrome. She has a pacer in place. It has been pacing appropriately. 12. Macrocytic anemia. Her TSH and B12 have been stable in the past. DISCHARGE CONDITION: Stable. Blood pressure is 148/74, heart rate is 60, respiratory rate of 19, O2 sats on room air during my evaluation were 94%. Temperature is 36.5 Celsius. MEDICATIONS AT DISCHARGE: Please see the EMR. DISCHARGE INSTRUCTIONS: She is to be on Eliquis b.i.d. through 11/19, and then starting on 11/20, th is dose needs to be decreased to 5 mg b.i.d. Her Aggrenox has been stopped due to being on Eliquis. She is on Lasix as a new medication. She needs close followup with Cardiology. Greater than 30 minutes discharging and coordinating the patient's care. /[id number]/MODL
[2018-11-17] MEDS ORDERED: POLYETHYLENE GLYCOL 3350 17 GM PKT PO SCH (10:45)
[2018-11-17] MEDS: guaiFENesin/CODEINE PHOS 10 ML UDCUP PO PRN (11:40)
--- NOTE | 2018-11-17 14:17 | ASMTDCNOTE ---
Case Management Discharge Discharge Order Complete? Answers: Yes Patient to Obtain Answers: Other Notes: [facility] Medications Transportation Arranged Answers: [facility] Stretcher Transport will Pick (Date 11/17/2018 02:30 PM & Time) Case Management Transport Answers: Yes Form Complete Faxed Final Orders Answers: Yes Agency/Facility Transfer Answers: Yes Report Printed & Faxed to Receiving Agency Discharge Comments Notes: Pt is discharging to [facility] today. D/C meds, orders, facility transfer sent via [employer]. IM signed, copy to pt and in chart. Pt requires a stretcher transport, [facility] informed. Date Signed: 11/17/2018 02:16 PM Electronically Signed By:WILMAN Matthews
[2018-11-17 15:38] VITALS: BP 128/61
[2018-11-17] MEDS ORDERED: SENNOSIDES/DOCUSATE SODIUM TAB PO SCH (21:00)
== END 2018-11-17 16:41 | DRG 175 ==
LOC: F3E 17:37 → OBSVTOIN 22:16
PROVIDERS: ADMIT Internal Medicine; ATTEND Internal Medicine
DX: I26.99 Other pulmonary embolism without acute cor pulmonale (principal); J96.01 Acute respiratory failure with hypoxia; J06.9 Acute upper respiratory infection, unspecified; B97.4 Respiratory syncytial virus as the cause of diseases classified elsewhere; I11.0 Hypertensive heart disease with heart failure; I50.30 Unspecified diastolic (congestive) heart failure; R04.0 Epistaxis; I35.0 Nonrheumatic aortic (valve) stenosis; M32.9 Systemic lupus erythematosus, unspecified; L40.50 Arthropathic psoriasis, unspecified; I69.393 Ataxia following cerebral infarction; E66.01 Morbid (severe) obesity due to excess calories; Z68.41 Body mass index [BMI] 40.0-44.9, adult; Z95.0 Presence of cardiac pacemaker; Z99.3 Dependence on wheelchair; Z66 Do not resuscitate; Z87.440 Personal history of urinary (tract) infections; Z87.01 Personal history of pneumonia (recurrent); I49.5 Sick sinus syndrome
CPT/HCPCS: 97162-GP; 97166-GO; 97530-GP; J1650; J1940; Q9967

== ENCOUNTER 2018-12-19 23:27 | Observation (INO) | payer OTHER, BC ==
--- NOTE | 2018-12-19 23:52 | EDPHY ---
H & P Stated Complaint: Right lower leg swelling Time Seen by Provider: 12/19/18 23:30 HPI/ROS: HPI The patient presents with right lower extremity edema and pain which has been present for the last 4 days approximately. She was recently discharged from a rehab facility to her home and since then she has noticed increased pain and swelling. She feels pain throughout her leg, mostly when she attempts to bear weight though she does spend most of her time in a motorized wheelchair. Her home health nurse measured her calf diameter tonight and noticed a difference so 911 was called. The patient is being treated for pulmonary embolism with Eliquis currently, she was admitted to the hospital last month for respiratory distress associated with RSV infection and possibly PE. REVIEW OF SYSTEMS 10 systems were reviewed and negative with the exception of the elements mentioned in the history of present illness. 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, psoriatic arthritis Soc Hx: Lives at home by herself, son lives nearby PHYSICAL General Appearance: Alert, no distress Eyes: Pupils equal and round no pallor or injection ENT, Mouth: Mucous membranes moist Respiratory: There are no retractions, lungs are clear to auscultation Cardiovascular: Regular rate and rhythm Gastrointestinal: Abdomen is soft and non-tender, no masses, bowel sounds normal Neurological: A&O, moves all extremities Skin: Warm and dry, no rashes Musculoskeletal: Neck is supple non tender Extremities: Right lower extremity is slightly edematous without any pitting edema or erythema, there are no areas of point tenderness, there is limited range of motion at the hip knee and ankle secondary to pain, she has normal pulses Psychiatric: Patient is oriented X 3, there is no agitation Source: Patient Exam Limitations: No limitations - Personal History Current Tetanus/Diphtheria Vaccine: Yes Current Tetanus Diphtheria and Acellular Pertussis (TDAP): Yes Tetanus Vaccine Date: 1999 - Medical/Surgical History Hx Asthma: No Hx Chronic Respiratory Disease: No Hx Diabetes: No Hx Cardiac Disease: Yes Hx Renal Disease: No Hx Cirrhosis: No Hx Alcoholism: No Hx HIV/AIDS: No Hx Splenectomy or Spleen Trauma: No Other PMH: TIA, pacemaker, macular degeneration, psoriatic arthritis, cellulitis , choly, appy, cataract removal bilateral, arthritis, lupus vasculitis, PEs - Social History Smoking Status: Never smoked Constitutional: Initial Vital Signs Temperature (C) 36.7 C 12/19/18 23:32 Heart Rate 61 12/19/18 23:32 Respiratory Rate 18 12/19/18 23:32 Blood Pressure 165/104 H 12/19/18 23:32 O2 Sat (%) 93 12/19/18 23:32 O2 Delivery Mode Room Air Allergies/Adverse Reactions: Sulfa (Sulfonamide Antibiotics) Allergy (Severe, Verified 12/19/18 23:31) Rash morphine Allergy (Mild, Verified 12/19/18 23:31) NAUSEA Home Medications: Medication Instructions Recorded Folic Acid [Folic Acid 1 MG (*)] 1 mg PO DAILY 02/26/15 Methotrexate Sodium [Rheumatrex] 10 mg PO 02/26/15 [place]-3 Fatty Acids [Fish Oil 1000 2,000 mg PO DAILY 02/26/15 mg (*)] Cholecalciferol Vit D3 [Vitamin D3 4,000 units PO DAILY 10/04/16 (*)] Atorvastatin Calcium [Lipitor 10 10 mg PO DAILY 11/03/16 mg (*)] Hydrocodone/APAP 5/325 [[place] 1 each PO BID 11/03/16 5/325 (*)] Lisinopril [Zestril 40 mg (*)] 40 mg PO DAILY 07/26/17 amLODIPine BESYLATE [Norvasc 5 mg 5 mg PO DAILY 07/26/17 (*)] Escitalopram Oxalate [Lexapro 10 10 mg PO DAILY 11/12/18 MG] Herbals/Supplements -Info Only 1 ea PO DAILY 11/12/18 Hydrocodone/APAP 5/325 [[place] 1 each PO DAILY PRN 11/12/18 5/325 (*)] Metoprolol Tartrate [Lopressor 25 25 mg PO BID 11/12/18 mg (*)] Zolpidem Tartrate [Ambien 5MG (*)] 5 mg PO HS PRN 11/12/18 Apixaban [Eliquis] 10 mg PO BID #5 tab 11/17/18 Benzonatate [[place]ess[place]on Pear[place]] 200 mg PO TID PRN cap 11/17/18 Furosemide [Lasix 20 MG (*)] 20 mg PO DAILY tab 11/17/18 Ipratropium/Albuterol [Duoneb (*)] 3 ml IH Q6HRS deyvial 11/17/18 Polyethylene Glycol 3350 [Miralax 17 gm PO DAILY pkt 11/17/18 17 gm (*)] Sennosides/Docusate Sodium 1 - 2 tab PO BID #0 tab 11/17/18 [Senokot-S] guaiFENesin/DEXTROMETHORPHAN 10 ml PO Q4 #120 ml 11/17/18 [Robitussin Dm Oral Liquid (*)] Apixaban [Eliquis] 5 mg PO BID #30 tab 11/19/18 Medical Decision Making - Diagnostics Imaging Results: DVT study right lower extremity demonstrates no DVT, interpreted by direct Radiology. X-ray right knee three view shows arthritic changes as well as moderately sized knee effusion, interpreted by me, radiology interpretation pending. Imaging: I viewed and interpreted images myself Procedures: ARTHROCENTESIS Procedure: Arthrocentesis. Indication: Evaluation for the possibility of septic joint. Risks, benefits, alternatives of the procedure were discussed with the patient and consent obtained. The patient was prepped and draped in the usual sterile fashion over the right knee joint. Local anesthesia was provided with 1% lidocaine. The joint space was entered with a 20 gauge needle and 40 mL of clear yellow fluid was obtained. There were no complications. The procedure was performed by myself. Differential Diagnosis: 88-year-old female, with history of recent pulmonary embolism on Eliquis, also RSV infection and hospitalization for this, history of CVA wheelchair-bound presents from home brought in by ambulance for right lower extremity pain and edema which has been present for the last 3-4 days since discharge from rehab facility. Differential diagnosis includes dependent edema, cellulitis, DVT. Plan to check basic labs, ultrasound of lower extremity. Patient's labs are unremarkable. DVT ultrasound also negative. I rechecked the patient and her pain continues. Her family has now arrived and have concerns about taking her home because she is not safe for transfers. She says she cannot put any weight on her right leg at all because of the severe pain. Even though she is mostly in her wheelchair, she is not able to toilet herself and her family is not able to lift her safely. On repeat examination, there is some concern for knee effusion. I performed an x-ray of the knee which confirmed of effusion as well as degenerative joint disease which could be the cause of the effusion verses gout. Patient had some redness of her right great toe a few days ago thought to be related to Lasix which she had received. I performed diagnostic/therapeutic arthrocentesis. Patient will be admitted to the hospitalist service and I discussed the case with Dr. Marc. - Data Points Laboratory Results: Laboratory Results 12/20/18 00:05 12/20/18 00:05 12/20/18 12/20/18 12/20/18 00:05 00:05 00:05 WBC 8.00 10^3/uL 10^3/uL (3.80-9.50) RBC 3.46 10^6/uL L 10^6/uL (4.18-5.33) Hgb 11.9 g/dL L g/dL (12.6-16.3) Hct 36.7 % L % (38.0-47.0) MCV 106.1 fL H fL (81.5-99.8) MCH 34.4 pg H pg (27.9-34.1) MCHC 32.4 g/dL g/dL (32.4-36.7) RDW 13.7 % % (11.5-15.2) Plt Count 238 10^3/uL 10^3/uL (150-400) MPV 11.0 fL fL (8.7-11.7) Neut % (Auto) 65.8 % % (39.3-74.2) Lymph % (Auto) 14.9 % L % (15.0-45.0) [place] % (Auto) 12.8 % % (4.5-13.0) Eos % (Auto) 4.6 % % (0.6-7.6) Baso % (Auto) 0.9 % % (0.3-1.7) Nucleat RBC Rel Count 0.0 % % (0.0-0.2) Absolute Neuts (auto) 5.27 10^3/uL 10^3/uL (1.70-6.50) Absolute Lymphs (auto) 1.19 10^3/uL 10^3/uL (1.00-3.00) Absolute Monos (auto) 1.02 10^3/uL H 10^3/uL (0.30-0.80) Absolute Eos (auto) 0.37 10^3/uL 10^3/uL (0.03-0.40) Absolute Basos (auto) 0.07 10^3/uL 10^3/uL (0.02-0.10) Absolute Nucleated RBC 0.00 10^3/uL 10^3/uL (0-0.01) Immature Gran % 1.0 % % (0.0-1.1) Immature Gran # 0.08 10^3/uL 10^3/uL (0.00-0.10) PT 14.4 SEC SEC (12.0-15.0) INR 1.17 H (0.83-1.16) APTT 41.6 SEC H SEC (23.0-38.0) Sodium 140 mEq/L mEq/L (135-145) Potassium 4.8 mEq/L mEq/L (3.5-5.2) Chloride 105 mEq/L mEq/L (97-110) Carbon Dioxide 23 mEq/l mEq/l (22-31) Anion Gap 12 mEq/L mEq/L (6-14) BUN 21 mg/dL mg/dL (7-23) Creatinine 0.9 mg/dL mg/dL (0.6-1.0) Estimated GFR 59 Glucose 109 mg/dL H mg/dL (70-100) Calcium 10.5 mg/dL H mg/dL (8.5-10.4) Medications Given: Discontinued Medications Furosemide (Lasix Injection) 20 mg IVP EDNOW ONE Stop: 12/20/18 03:04 Last Admin: 12/20/18 04:14 Dose: 20 mg Departure - Departure Disposition: [facility] Inpatient Acute Clinical Impression: Pain of right lower extremity, Effusion, right knee Condition: Fair
[2018-12-20 00:35] LABS: INR 1.17 (0.83-1.16); PROTIME(PATIENT) 14.4 SEC (12.0-15.0)
[2018-12-20 01:01] LABS: PLATELET COUNT 238 10^3/uL (150-400)
[2018-12-20] MEDS ORDERED: FUROSEMIDE 20 MG/2 ML VIAL IVP ONE (03:03)
[2018-12-20] MEDS ORDERED: ACETAMINOPHEN 500 MG TAB PO PRN (03:18)
[2018-12-20] MEDS ORDERED: ONDANSETRON DISINTEGRATING 4 MG TAB PO PRN (03:18)
[2018-12-20] MEDS ORDERED: ONDANSETRON 4 MG/2 ML VIAL IVP PRN (03:18)
[2018-12-20] MEDS ORDERED: INDOMETHACIN 25 MG CAP PO PRN (03:38)
--- NOTE | 2018-12-20 03:54 | PDGENHP ---
History and Physical - Chief Complaint R knee pain - History of Present Illness 88 yo obese F w/ dCHF, psoriatic arthritis, RA, SSS s/p PPM, HTN, and recent PE on Eliquis present with R knee pain and swelling. The patient was discharged on 11/17 after treatment for PE and RSV infection. She was discharged to a SNF and did well. She went home 4 days ago. Over the last 2-3 days she has developed swelling and pain in her R knee. She also had redness and pain in her R 1st MTP 3 days ago, which she was told was gout. This now is improved. The patient tells me she first noted the pain in the back of her knee, but now it involves the front as well. She denies fall or trauma. She also denies fevers and chills. An ultrasound in the ED was negative for DVT. The patient is being admitted for further evaluation. Case discussed with ED physician Dr. Razo; records reviewed and summarized above. History Information - Allergies/Home Medication List Allergies/Adverse Reactions: Sulfa (Sulfonamide Antibiotics) Allergy (Severe, Verified 12/19/18 23:31) Rash morphine Allergy (Mild, Verified 12/19/18 23:31) NAUSEA Home Medications: Folic Acid [Folic Acid 1 MG (*)] 1 mg PO DAILY 02/26/15 [Last Taken 07/26/17] Methotrexate Sodium [Rheumatrex] 10 mg PO WE@02/26/15 [Last Taken 11/07/18] [place]-3 Fatty Acids [Fish Oil 1000 mg (*)] 2,000 mg PO DAILY 02/26/15 [Last Taken 07/26/17] Cholecalciferol Vit D3 [Vitamin D3 (*)] 4,000 units PO DAILY 10/04/16 [Last Taken 11/12/18] Atorvastatin Calcium [Lipitor 10 mg (*)] 10 mg PO DAILY 11/03/16 [Last Taken ] Hydrocodone/APAP 5/325 [[place] 5/325 (*)] 1 each PO BID 11/03/16 [Last Taken 09:00] Lisinopril [Zestril 40 mg (*)] 40 mg PO DAILY 07/26/17 [Last Taken 11/12/18] amLODIPine BESYLATE [Norvasc 5 mg (*)] 5 mg PO DAILY 07/26/17 [Last Taken 09:00] Escitalopram Oxalate [Lexapro 10 MG] 10 mg PO DAILY 11/12/18 [Last Taken ] Herbals/Supplements -Info Only 1 ea PO DAILY 11/12/18 [Last Taken Unknown] Hydrocodone/APAP 5/325 [[place] 5/325 (*)] 1 each PO DAILY PRN 11/12/18 [Last Taken Unknown] Metoprolol Tartrate [Lopressor 25 mg (*)] 25 mg PO BID 11/12/18 [Last Taken 09:00] Zolpidem Tartrate [Ambien 5MG (*)] 5 mg PO HS PRN 11/12/18 [Last Taken Unknown] I have personally reviewed and updated: family history, medical history - Past Medical History CVA (Cerebellar with resultant ataxia), hypertension Additional medical history: Depression. Psoriatic arthritis. Osteoarthritis. Macular degeneration. GERD. Sick sinus syndrome. Carotid stenosis, 50-75% bilaterally - Surgical History Reports: appendectomy, cholecystectomy Additional surgical history: Permanent pacemaker - Family History Additional family history: Patient denies any recent sick family contacts - Social History Smoking Status: Never smoked Additional social history: She lives independently near to her son's home with 24 hour caregivers. She is wheelchair bound, requires Sera lift for transfers Review of Systems Review of Systems: ROS: 10pt was reviewed & negative except for what was stated in HPI & below Physical Exam Physical Exam: Temp Pulse Resp BP Pulse Ox 36.7 C 60 18 130/68 H 91 L 12/19/18 23:32 12/20/18 03:01 12/20/18 03:01 12/20/18 03:01 12/20/18 03:01 Constitutional: no apparent distress, obese Eyes: PERRL, EOMI Ears, Nose, Mouth, Throat: moist mucous membranes, no oral mucosal ulcers Cardiovascular: regular rate and rhythym, systolic murmur Respiratory: no respiratory distress, clear to auscultation Gastrointestinal: normoactive bowel sounds, soft, non-tender abdomen Skin: warm, No erythema Musculoskeletal: joint effusion (R knee), pain with ROM (R knee) Neurologic: AAOx3, CN II-XII Intact Psychiatric: interacting appropriately, not anxious Lab Data & Imaging Review 12/20/18 00:05 12/20/18 00:05 WBC 8.00 10^3/uL (3.80-9.50) 12/20/18 00:05 RBC 3.46 10^6/uL (4.18-5.33) L 12/20/18 00:05 Hgb 11.9 g/dL (12.6-16.3) L 12/20/18 00:05 Hct 36.7 % (38.0-47.0) L 12/20/18 00:05 MCV 106.1 fL (81.5-99.8) H 12/20/18 00:05 MCH 34.4 pg (27.9-34.1) H 12/20/18 00:05 MCHC 32.4 g/dL (32.4-36.7) 12/20/18 00:05 RDW 13.7 % (11.5-15.2) 12/20/18 00:05 Plt Count 238 10^3/uL (150-400) 12/20/18 00:05 MPV 11.0 fL (8.7-11.7) 12/20/18 00:05 Neut % (Auto) 65.8 % (39.3-74.2) 12/20/18 00:05 Lymph % (Auto) 14.9 % (15.0-45.0) L 12/20/18 00:05 [place] % (Auto) 12.8 % (4.5-13.0) 12/20/18 00:05 Eos % (Auto) 4.6 % (0.6-7.6) 12/20/18 00:05 Baso % (Auto) 0.9 % (0.3-1.7) 12/20/18 00:05 Nucleat RBC Rel Count 0.0 % (0.0-0.2) 12/20/18 00:05 Absolute Neuts (auto) 5.27 10^3/uL (1.70-6.50) 12/20/18 00:05 Absolute Lymphs (auto) 1.19 10^3/uL (1.00-3.00) 12/20/18 00:05 Absolute Monos (auto) 1.02 10^3/uL (0.30-0.80) H 12/20/18 00:05 Absolute Eos (auto) 0.37 10^3/uL (0.03-0.40) 12/20/18 00:05 Absolute Basos (auto) 0.07 10^3/uL (0.02-0.10) 12/20/18 00:05 Absolute Nucleated RBC 0.00 10^3/uL (0-0.01) 12/20/18 00:05 Immature Gran % 1.0 % (0.0-1.1) 12/20/18 00:05 Immature Gran # 0.08 10^3/uL (0.00-0.10) 12/20/18 00:05 PT 14.4 SEC (12.0-15.0) 12/20/18 00:05 INR 1.17 (0.83-1.16) H 12/20/18 00:05 APTT 41.6 SEC (23.0-38.0) H 12/20/18 00:05 Sodium 140 mEq/L (135-145) 12/20/18 00:05 Potassium 4.8 mEq/L (3.5-5.2) 12/20/18 00:05 Chloride 105 mEq/L (97-110) 12/20/18 00:05 Carbon Dioxide 23 mEq/l (22-31) 12/20/18 00:05 Anion Gap 12 mEq/L (6-14) 12/20/18 00:05 BUN 21 mg/dL (7-23) 12/20/18 00:05 Creatinine 0.9 mg/dL (0.6-1.0) 12/20/18 00:05 Estimated GFR 59 12/20/18 00:05 Glucose 109 mg/dL (70-100) H 12/20/18 00:05 Calcium 10.5 mg/dL (8.5-10.4) H 12/20/18 00:05 Assessment & Plan Assessment: 88 yo obese F w/ dCHF, psoriatic arthritis, SSS s/p PPM, HTN, and recent PE on Eliquis present with R knee pain and swelling. Plan: 1. R knee pain, swelling - Unclear etiology; ultrasound is negative for DVT. Of note, she had R 1st MTP redness and swelling a few days ago, which she was told was gout. She has never had gout in her knee before but this is certainly possible, as is CPPD noting recent bout of illness. In addition, she has RA and psoriatic arthritis, so inflammatory arthropathy is also possible. Infectious arthritis seems less likely but theoretically should be ruled out. - Admit for observation - R knee XR ordered - Ortho consult in the morning for arthrocentesis if fluid not able to be obtained in the ED - Will trial indomethacin PRN for pain - PT/OT evaluations as this flare has made her transfers very challenging for family 2. Recent PE - PE diagnosed in October; she is compliant with apixaban therapy. - Continue apixaban pending reconciliation 3. dCHF - Difficult to gauge volume status due to body habitus, but VS are reassuring. - Continue oral Lasix 4. Hx CVA - With resultant ataxia. 5. Psoriatic arthritis, RA - Patient is on methotrexate 6. SSS - S/p PPM 7. HTN - On metoprolol and lisinopril. 8. Morbid obesity - BMI 41 Diet - Regular Code - Full Ppx - apixaban Dispo - Admit under observation status
[2018-12-20 08:11] LABS: PLATELET COUNT 221 10^3/uL (150-400)
[2018-12-20 11:44] VITALS: BP 118/54
[2018-12-20] MEDS ORDERED: COLCHICINE 0.6 MG CAP/TAB PO SCH (13:30)
--- NOTE | 2018-12-20 14:26 | ASMTCMCOM ---
CM Note CM Note Notes: Pt was admitted for leg/knee pain. Recently discharged from In rehab. She lives at home w/a 20/03 private palliative care physician and has home health with [facility]. DC Plan: Home with Caregiver and [facility] Date Signed: 12/20/2018 02:25 PM Electronically Signed By:Namrata Olivas RN
--- NOTE | 2018-12-20 14:27 | ASMTLACE ---
LACE Length of stay for Answers: Less than 1 day current admission Acuity / Level of Answers: No Care: Did the patient have an inpatient admission? Comorbidities - select Answers: Cerebrovascular disease all that apply (CVA, TIA, aneurysms, vasc ular dementia) Congestive heart failure Opioid dependence / Chronic pain Other Notes: HTN; PE # of Emergency department Answers: 1-2 visits in the last 6 months Social determinants Answers: Mental health diagnosis (anxiety, depression, pers onality disorders, etc.) Score: 12 Date Signed: 12/20/2018 02:25 PM Electronically Signed By:Namrata Olivas RN
--- NOTE | 2018-12-20 16:34 | PDDCSUM ---
Discharge Summary Discharge Summary: Discharge diagnosis Gout Right knee pain Gouty arthritis Recent PE Diastolic congestive heart failure History of CVA Psoriatic arthritis Rheumatoid arthritis Sick sinus syndrome status post pacemaker Debility Hypertension Morbid obesity Patient presented to the emergency room with complaints of right knee pain. She had just gone home from a previous hospitalization. She also noted that she had recently had right 1st MTP pain and swelling. Plain film was obtained which showed no acute fracture or dislocation. Arthrocentesis was performed in the emergency room. G stain of the aspirate showed no organisms but did show scant monosodium urate crystals consistent with gout. The patient had been given a trial and of indomethacin on admission which seemed very effective in relieving the patient's pain. Due to a history of coronary artery disease, and current anticoagulation the decision was made to not continue with NSAID management for her gouty arthritis. She was started on colchicine and discharged home to complete a course of Colcrys 0.6 twice daily. She was instructed to follow up with her primary care physician for consideration of initiation of of [place]. She was also instructed to return to the emergency room if she had any development of fevers chills worsening leg pain or other concerns. Disposition Home with home health New medications Colchicine 0.6 mg twice daily
== END 2018-12-20 15:05 | disposition home health service (06) ==
LOC: EDUNIT# → F3E 12-20 04:37
PROVIDERS: ADMIT Student in an Organized Health Care Education/Training Program; ATTEND Internal Medicine
PROC: 0R9U3ZZ Drainage of Right Metacarpophalangeal Joint, Percutaneous Approach (ICD-10-PCS; principal; 2018-12-19)
DX: M10.061 Idiopathic gout, right knee (principal); R60.0 Localized edema; M25.561 Pain in right knee; M10.071 Idiopathic gout, right ankle and foot; Z86.711 Personal history of pulmonary embolism; Z79.01 Long term (current) use of anticoagulants; I11.0 Hypertensive heart disease with heart failure; I50.30 Unspecified diastolic (congestive) heart failure; L40.50 Arthropathic psoriasis, unspecified; I69.393 Ataxia following cerebral infarction; E66.01 Morbid (severe) obesity due to excess calories; Z68.41 Body mass index [BMI] 40.0-44.9, adult; Z95.0 Presence of cardiac pacemaker; Z99.3 Dependence on wheelchair
CPT/HCPCS: 20600; 73562; 93971; 96374; 99285; G0378; J1940